=== PATIENT | male | born 1990 | race Caucasian/White ===

== ENCOUNTER 2016-11-22 18:23 | Emergency (ER) | payer BC, OTHER ==
[~2016-11-22] VITALS: Ht 188 cm; Wt 90.7 kg
[~2016-11-22 18:23] MED LIST: HYDR-5688 PO
[2016-11-22 18:26] VITALS: TEMP 36.9; Ht 188 cm; Wt 90.7 kg
[2016-11-22] MEDS ORDERED: PROMETHAZINE HCL INJ 12.5 MG in SODIUM CHLORIDE 0.9% 50ML 50 ML IV ONE (18:47)
[2016-11-22] MEDS ORDERED: PROMETHAZINE HCL INJ 25 MG/ML 1 ML VIAL IV STA (18:47)
[2016-11-22] MEDS ORDERED: SODIUM CHLORIDE 0.9% 1000ML 1,000 ML IV STA ×2 (18:47)
[2016-11-22] MEDS ORDERED: METHYLPREDNISOLONE 125 MG VIAL IV STA (18:47)
[2016-11-22] MEDS ORDERED: HYDROmorphone INJ 2 MG/ML SYR/VIAL IV STA ×2 (18:52→20:39)
[2016-11-22] MEDS ORDERED: MoRPHine SULFATE 10 MG/ML CARP/VIAL IV PRN (19:00)
[2016-11-22] MEDS ORDERED: MRC50 PO (19:03)
[2016-11-22] MEDS ORDERED: ADAL20KI INJ (19:03)
[2016-11-22] MEDS ORDERED: MULT-506 PO (19:03)
--- NOTE | 2016-11-22 19:07 | EMERGENCY ROOM VISIT NOTE ---
History Report prepared by Rafia: Marcel Boykin Under the Supervision of: Dr. Gordon Sim M.D. First contact with patient: 18:45 Chief Complaint: ABDOMINAL PAIN Stated Complaint: ABD PAIN,NAUSEA,BLOODY STOOL,VOMITING, HX CROHNS Nursing Triage Summary: Pt reports diffuse abd pain that began this morning. "I woke up during the night with the pain." Pt has hx of Crohn's. N/V/D. Reports dark blood in stool. History of Present Illness The patient is a 26 year old male who presents to the Emergency Room with complaints of constant abdominal pain that began this morning, several hours prior to arrival. The patient states that he also noticed blood in his stool this morning. His bowel movement this morning was diarrhea-like, but this is normal for him even since his bowel surgeries. He also notes that he has vomited today. The patient has a history of Crohn's disease, and claims that his current symptoms feel similar to Crohn's flairs that he has had in the past. His last flair was in April of 2016. He states that he normally receives Prednisone for his flares. 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 A total of 10 systems reviewed and were otherwise negative. Past Medical & Surgical Medical Problems: (1) Crohns disease Surgical Problems: (1) H/O resection of large bowel Family History Cancer Diabetes mellitus Hypertension Lung disease Social History Smoking Status: Current Every Day Smoker Alcohol Use: none Drug Use: none Marital Status: single Occupation Status: employed, student Current/Historical Medications Scheduled Adalimumab (Humira), 1 DOSE INJ [id number] Mercaptopurine (Mercaptopurine), 1 TAB PO DAILY Multivitamin (Multivitamin), 1 TAB PO DAILY Ondasetron Odt (Zofran Odt), 4 MG SL Q6H Prednisone (Prednisone), 0 PO DAILY Scheduled PRN Oxycodone Ir (Roxicodone Ir), 1-2 TAB PO Q4H PRN for Pain Allergies Coded Allergies: Amoxicillin (Verified Allergy, Unknown, Unknown, 09/15/16) Reported by PT. Pt states allergy only to Amoxicillin. Physical Exam Vital Signs Date Time Temp Pulse Resp B/P Pulse Ox O2 Delivery O2 Flow Rate FiO2 11/22/16 21:12 62 14 106/67 96 Room Air 11/22/16 20:27 59 16 118/70 96 Room Air 11/22/16 18:26 36.9 77 18 142/94 99 Room Air Physical Exam GENERAL: Patient is in no acute distress. HEENT: No acute trauma, normocephalic atraumatic, mucous membranes moist, no nasal congestion, no scleral icterus. NECK: No stridor, no adenopathy, no meningismus, trachea is midline. LUNGS: Clear to auscultation bilaterally, no wheeze, no rhonchi, breath sounds equal. HEART: Without murmurs gallops or rubs, regular rate and rhythm. ABDOMEN: Abdomen is diffusely mildly tender. Soft, bowel sounds positive, no hernias, no peritonitis. EXTREMITIES: No cyanosis or edema, full range of motion of all the joints without pain or difficulty, no signs for acute trauma. NEUROLOGIC: Oriented x 3, no acute motor or sensory deficits, no focal weakness. SKIN: No rash, no jaundice, no diaphoresis. Medical Decision & Procedures ER Provider Diagnostic Interpretation: X ray results and stated below per my interpretation and radiologist interpretation. Other radiology results and stated below per my review and radiologist interpretation: PA CHEST RADIOGRAPH AND UPRIGHT AND SUPINE AP RADIOGRAPHS OF THE ABDOMEN CLINICAL HISTORY: Abdominal pain and vomiting. Crohn's disease. COMPARISON STUDY: Chest radiograph April 21, [address] of the abdomen and pelvis April 17, 2016. FINDINGS: Lung volumes are normal. Lungs are clear. There is no pneumothorax or pleural effusion. Cardiac size is normal. Mediastinal contours are normal. There is no free air. A right-sided bowel anastomosis is noted. There are several colonic air-fluid levels on upright projection. There is no evidence for a bowel obstruction. IMPRESSION: 1. No free air or evidence of bowel obstruction. 2. No acute cardiopulmonary findings. Electronically signed by: Andrei Graham M.D. 11/22/2016 8:29 PM Dictated Date/Time: 11/22/2016 8:28 PM Laboratory Results 11/22/16 19:13 Red Blood Count 5.06, Mean Corpuscular Volume 88.1, Mean Corpuscular Hemoglobin 33.0, Mean Corpuscular Hemoglobin Concent 37.4, Mean Platelet Volume 10.0, Neutrophils (%) (Auto) 69.0, Lymphocytes (%) (Auto) 25.5, Monocytes (%) (Auto) 3.9, Eosinophils (%) (Auto) 1.2, Basophils (%) (Auto) 0.2, Neutrophils # (Auto) 6.44, Lymphocytes # (Auto) 2.38, Monocytes # (Auto) 0.36, Eosinophils # (Auto) 0.11, Basophils # (Auto) 0.02 11/22/16 19:13 Test 11/22/16 19:13 11/22/16 19:34 White Blood Count 9.33 K/uL (4.8-10.8) Red Blood Count 5.06 M/uL (4.7-6.1) Hemoglobin 16.7 g/dL (14.0-18.0) Hematocrit 44.6 % (42-52) Mean Corpuscular Volume 88.1 fL (80-100) Mean Corpuscular Hemoglobin 33.0 pg (25-34) Mean Corpuscular Hemoglobin Concent 37.4 g/dl (32-36) Platelet Count 223 K/uL (130-400) Mean Platelet Volume 10.0 fL (7.4-10.4) Neutrophils (%) (Auto) 69.0 % Lymphocytes (%) (Auto) 25.5 % Monocytes (%) (Auto) 3.9 % Eosinophils (%) (Auto) 1.2 % Basophils (%) (Auto) 0.2 % Neutrophils # (Auto) 6.44 K/uL (1.4-6.5) Lymphocytes # (Auto) 2.38 K/uL (1.2-3.4) Monocytes # (Auto) 0.36 K/uL (0.11-0.59) Eosinophils # (Auto) 0.11 K/uL (0-0.5) Basophils # (Auto) 0.02 K/uL (0-0.2) RDW Standard Deviation 40.4 fL (36.4-46.3) RDW Coefficient of Variation 12.7 % (11.5-14.5) Immature Granulocyte % (Auto) 0.2 % Immature Granulocyte # (Auto) 0.02 K/uL (0.00-0.02) Anion Gap 10.0 mmol/L (3-11) Est Creatinine Clear Calc Drug Dose 120.4 ml/min Estimated GFR () 108.3 Estimated GFR (Non- 93.5 BUN/Creatinine Ratio 5.5 (10-20) Calcium Level 8.7 mg/dl (8.5-10.1) Total Bilirubin 0.6 mg/dl (0.2-1) Aspartate Amino Transf (AST/SGOT) 10 U/L (15-37) Alanine Aminotransferase (ALT/SGPT) 24 U/L (12-78) Alkaline Phosphatase 153 U/L (45-117) Total Protein 7.1 gm/dl (6.4-8.2) Albumin 3.8 gm/dl (3.4-5.0) Globulin 3.3 gm/dl (2.5-4.0) Albumin/Globulin Ratio 1.2 (0.9-2) Lipase 101 U/L (73-393) Lactic Acid Level 0.7 mmol/L (0.4-2.0) Laboratory results reviewed by me. Medications Administered Medications (Trade) Dose Ordered Sig/Ngoc Route Start Time Stop Time Status Last Admin Dose Admin Sodium Chloride 1,000 ml @ 200 mls/hr Q5H STAT IV 11/22/16 18:47 11/22/16 23:46 11/22/16 19:10 200 MLS/HR Sodium Chloride (Nss 1000ml) 1,000 ml @ 999 mls/hr Q1H1M STAT IV 11/22/16 18:47 11/22/16 19:47 DC 11/22/16 19:10 999 MLS/HR Methylprednisolone Sodium Succinate (Solu-Medrol IV) 60 mg NOW STAT IV 11/22/16 18:47 11/22/16 18:52 DC 11/22/16 19:11 60 MG Hydromorphone HCl 1 mg 1 mg NOW STAT IV 11/22/16 18:52 11/22/16 18:53 DC 11/22/16 19:11 1 MG Promethazine HCl/ Sodium Chloride (Phenergan Inj/ Nss 50ml) 50.5 ml @ 202 mls/hr TODAY@1847 ONCE IV 11/22/16 18:47 11/22/16 19:01 DC 11/22/16 19:11 202 MLS/HR Hydromorphone HCl (Dilaudid Inj) 1 mg NOW STAT IV 11/22/16 20:39 11/22/16 20:40 DC 2/12/17 20:43 1 MG Ketorolac Tromethamine (Toradol Inj) 30 mg NOW STAT IV 11/22/16 20:39 11/22/16 20:40 DC 11/22/16 20:43 30 MG Ondansetron HCl (ZOFRAN ODT 4MG Home Pack) 1 homepack UD ONCE PO 11/22/16 21:00 11/22/16 21:01 DC 11/22/16 21:12 1 HOMEPACK Oxycodone HCl (Roxicodone Immediate Rel 5MG Home Pack) 1 homepack UD ONCE PO 11/22/16 21:00 11/22/16 21:01 DC 11/22/16 21:12 1 HOMEPACK ED Course 1847: The patient was evaluated in room A11. A complete history and physical exam was performed. 1846: Ordered Methylprednisolone 60 mg IV, Sodium Chloride 1000 mL @ 999 mL/hr IV, Sodium Chloride 1000 mL @ 200 mL/hr IV. Phenergan 12.5 mg IV. 1851: Ordered Dilaudid 1 mg IV. 2038: Ordered Toradol 30 mg IV, Dilaudid 1 mg IV. 2099: Ordered Oxycodone HCl 1 homepack PO, Zofran 1 homepack PO. 2108: I reevaluated the patient at this time. I discussed results and discharge instructions: He verbalized understanding and agreement. The patient is ready for discharge. Medical Decision Differential Diagnosis include: Exacerbation of Crohn's, constipation, bowel obstruction, electrolyte imbalance, and renal failure. There is no leukocytosis or concerning anemia. No significant electrolyte abnormality, kidney failure, hepatitis or pancreatitis. Abdominal series shows no pneumonia, free air or bowel obstruction. On exam, there was no peritonitis. The patient was not febrile or toxic. Lactic acid level was not elevated making bowel ischemia less likely. The patient has a history of Crohn's, he has had similar Crohn's flares before. He did receive IV saline, IV Dilaudid, IV Phenergan. He received IV Toradol and another dose of IV Dilaudid. He received a dose of IV Solu-Medrol. The patient looks improved, he feels better. No vomiting while here in the ER. I do think the patient can be discharged. He will be discharged with Zofran, oxycodone, a prednisone taper. He has done well with prednisone in the past when he has had a Crohn's flare. Patient was encouraged to return for worsening symptoms or if not improving. A bland and simple diet was suggested. [place] Drug Monitoring Program Search Results: patient reviewed within database, no issues identified Impression Primary Impression: Exacerbation of Crohn's disease Scribe Attestation The scribe's documentation has been prepared under my direction and personally reviewed by me in its entirety. I confirm that the note above accurately reflects all work, treatment, procedures, and medical decision making performed by me. Departure Information Dispostion Home / Self-Care Prescriptions Oxycodone Ir (Roxicodone Ir) 5 Mg Tab 1-2 TAB PO Q4H Y for Pain, #10 TAB Prov: Gordon Sim M.D. 11/22/16 Prednisone (Prednisone) 20 Mg Tab 0 PO DAILY, #14 TAB 3 TABS DAILY FOR 2 DAYS, THEN 2 TABS DAILY FOR 2 DAYS, THEN 1 TAB DAILY FOR 2 DAYS, THEN 1/2 TAB DAILY FOR 2 DAYS. Prov: Gordon Sim M.D. 11/22/16 Ondasetron Odt (ZOFRAN ODT) 4 Mg Tab 4 MG SL Q6H for Nausea, #12 TAB Prov: Gordon Sim M.D. 11/22/16 Referrals No Doctor, Assigned (PCP) Forms HOME CARE DOCUMENTATION FORM, IMPORTANT VISIT INFORMATION Patient Instructions My [facility] Additional Instructions oxy ir 1-2 tab every 4 hours for pain zofran 1-2 tab every 6 hours for nausea bland diet--crackers, soup, toast, gatorade small meals at a time use prednisone as directed rest return for worsening symptoms or if not improving follow with your GI doctor--call for an appt Problem Qualifiers Primary Impression: Exacerbation of Crohn's disease Digestive disease complication type: unspecified complication Qualified Codes : K50.919 - Crohn's disease, unspecified, with unspecified complications
[2016-11-22 19:24] LABS: BASO % 0.2 %; BASO ABS # 0.02 K/uL (0-0.2); COMPLETE YES; EOS % 1.2 %; HEMATOCRIT 44.6 % (42-52); IG% 0.2 %; LYMPH % 25.5 %; LYMPH ABS # 2.38 K/uL (1.2-3.4); MEAN CELL VOLUME 88.1 fL (80-100); MEAN CORPUSCULAR HGB CONC 37.4 g/dl (32-36); MONO % 3.9 %; PLATELET COUNT 223 K/uL (130-400); RED BLOOD COUNT 5.06 M/uL (4.7-6.1); WHITE BLOOD COUNT 9.33 K/uL (4.8-10.8)
[2016-11-22 19:40] LABS: BUN/CREATININE RATIO 5.5 (10-20); CALCIUM 8.7 mg/dl (8.5-10.1); CREATININE 1.1 mg/dl (0.60-1.40); POTASSIUM 4.2 mmol/L (3.5-5.1)
[2016-11-22 19:43] LABS: ALB/GLOB RATIO 1.2 (0.9-2)
--- NOTE | 2016-11-22 20:31 | DIAGNOSTIC IMAGING REPORT ---
PA CHEST RADIOGRAPH AND UPRIGHT AND SUPINE AP RADIOGRAPHS OF THE ABDOMEN CLINICAL HISTORY: Abdominal pain and vomiting. Crohn's disease. COMPARISON STUDY: Chest radiograph April 21, [address] of the abdomen and pelvis April 17, 2016. FINDINGS: Lung volumes are normal. Lungs are clear. There is no pneumothorax or pleural effusion. Cardiac size is normal. Mediastinal contours are normal. There is no free air. A right-sided bowel anastomosis is noted. There are several colonic air-fluid levels on upright projection. There is no evidence for a bowel obstruction. IMPRESSION: 1. No free air or evidence of bowel obstruction. 2. No acute cardiopulmonary findings. Electronically signed by: Andrei Graham M.D. 11/22/2016 8:29 PM Dictated Date/Time: 11/22/2016 8:28 PM
[2016-11-22] MEDS ORDERED: KETOROLAC TROMETHAMINE 30 MG/ML VIAL IV STA (20:39)
[2016-11-22] MEDS ORDERED: OXYCODONE IR HOME PACK PO ONE (21:00)
[2016-11-22] MEDS ORDERED: ONDANSETRON HOME PACK 4MG OD TAB PO ONE (21:00)
[2016-11-22] MEDS ORDERED: OXYC1TAB3 PO (21:01)
[2016-11-22] MEDS ORDERED: ONDA4TAB10 SL (21:01)
[2016-11-22] MEDS ORDERED: PRED20TA PO (21:01)
[2016-11-22 21:12] VITALS: BP 106/67; PULSE 62; O2SAT 96
== END 2016-11-22 21:22 | disposition home or self-care (01) ==
LOC: C.EDB 18:25 → C.EDA 21:22
DX: K50.919 Crohn's disease, unspecified, with unspecified complications (principal); F17.200 Nicotine dependence, unspecified, uncomplicated; Z90.49 Acquired absence of other specified parts of digestive tract; Z83.3 Family history of diabetes mellitus; Z82.49 Family history of ischemic heart disease and other diseases of the circulatory system; Z79.52 Long term (current) use of systemic steroids

== ENCOUNTER 2016-11-25 10:48 | Emergency (ER) | payer BC, OTHER ==
[~2016-11-25] VITALS: Ht 188 cm; Wt 90.9 kg
[~2016-11-25 10:48] MED LIST changes: +ADAL20KI INJ; -HYDR-5688 PO; +MRC50 PO; +MULT-506 PO; +ONDA4TAB10 SL; +OXYC1TAB3 PO; +PRED20TA PO
[2016-11-25 10:54] VITALS: TEMP 36.8; Ht 188 cm; Wt 90.9 kg
[2016-11-25] MEDS ORDERED: HYDROmorphone INJ 1 MG/ML SYR IV STA (11:42)
[2016-11-25] MEDS ORDERED: ONDANSETRON INJ 2 MG/ML 2 ML VIAL IV STA (11:42)
[2016-11-25] MEDS ORDERED: SODIUM CHLORIDE 0.9% 1000ML 1,000 ML IV STA ×2 (11:42)
[2016-11-25 11:51] LABS: BASO % 0.2 %; BASO ABS # 0.01 K/uL (0-0.2); COMPLETE YES; EOS % 1.9 %; HEMATOCRIT 43.1 % (42-52); IG% 0.2 %; LYMPH % 29.3 %; LYMPH ABS # 1.73 K/uL (1.2-3.4); MEAN CELL VOLUME 88.3 fL (80-100); MEAN CORPUSCULAR HGB CONC 36.2 g/dl (32-36); MEAN PLATELET VOLUME 10.4 fL (7.4-10.4); MONO % 5.4 %; PLATELET COUNT 218 K/uL (130-400); RED BLOOD COUNT 4.88 M/uL (4.7-6.1)
[2016-11-25] MEDS ORDERED: OPTIRAY 320 IV PRN (12:00)
[2016-11-25 12:02] LABS: ALT/SGPT 22 U/L (12-78); AST/SGOT 10 U/L (15-37); BLOOD UREA NITROGEN 8 mg/dl (7-18); CALCIUM 8.3 mg/dl (8.5-10.1); CARBON DIOXIDE 25 mmol/L (21-32); CHLORIDE 109 mmol/L (98-107); CREATININE 0.86 mg/dl (0.60-1.40); GLUCOSE 89 mg/dl (70-99); SODIUM 141 mmol/L (136-145)
[2016-11-25 12:05] LABS: ALKALINE PHOSPHATASE 121 U/L (45-117); C-REACTIVE PROTEIN 0.29 mg/dl (0-0.29)
--- NOTE | 2016-11-25 15:08 | DIAGNOSTIC IMAGING REPORT ---
CT SCAN OF THE ABDOMEN AND PELVIS WITH IV CONTRAST CLINICAL HISTORY: Crohn's disease. COMPARISON STUDY: Abdominal CT dated 04/17/2016. TECHNIQUE: Following the IV administration of 93 cc of Optiray 320, CT scan of the abdomen and pelvis is performed from the lung bases to the proximal femora. Images are reviewed in the axial, sagittal, and coronal planes. IV contrast was administered without complication. Automated dose control exposure was utilized. CT DOSE: 407.16 mGy.cm FINDINGS: Lung bases: The heart is normal in size and without pericardial effusion. There are trace pleural effusions with dependent atelectasis. Liver: The contrast-enhanced liver is normal in size, contour, and attenuation. There is no intrahepatic biliary ductal dilatation. The hepatic veins and portal veins are patent. Gallbladder: Unremarkable. Spleen: Mildly enlarged measuring 13.3 cm in length. Pancreas: Unremarkable. Adrenal glands: Unremarkable. Kidneys: The contrast enhanced kidneys are normal in size and without hydronephrosis. The kidneys enhance symmetrically. Small cortical hypodensities in both kidneys are unchanged and measure up to 1.5 cm. These likely represent cysts but cannot definitively characterized due to surrounding IV contrast. A 3 mm nonobstructing calculus is noted in the left kidney. Abdominal vasculature: The abdominal aorta is normal in course and caliber. Bowel: There are postoperative changes from distal ileal resection with ileocolic anastomosis. No bowel obstruction is seen, as enteric contrast reaches the distal colon. The appendix is surgically absent. There is a short segment of wall thickening identified involving the distal ileum just proximal to anastomosis. This segment measures at least 6 cm in length. This is similar in appearance to the 04/17/2016 examination. There is no evidence of stricture or fistula formation. Mild productive change is noted in the surrounding fat. No additional thick walled bowel loops are identified. Peritoneum: There is no intraperitoneal free air or abdominal ascites. A midline surgical scar is noted. Lymphadenopathy: Prominent right lower quadrant mesenteric lymph nodes measure up to 10 mm short axis. Pelvic viscera: The bladder, prostate, and seminal vesicles are normal as visualized. Skeletal structures: No lytic or blastic lesions are seen. IMPRESSION: 1. There are postoperative changes from distal ileal resection with ileocolic anastomosis. No bowel obstruction is seen. 2. There is an approximately 6 cm segment of thick walled distal ileum located just proximal to anastomotic site. The appearance is consistent with active Crohn's disease, and this is overall similar to the 04/17/2016 examination. There is no evidence of stricture or fistula formation. No organized fluid collection is seen to suggest abscess. 3. No additional abnormal small bowel loops are identified. 4. Prominent mesenteric lymph nodes are likely on a reactive basis. 5. Additional findings as above. Electronically signed by: Gordon Landry M.D. 11/25/2016 3:06 PM Dictated Date/Time: 11/25/2016 2:57 PM
[2016-11-25] MEDS ORDERED: METHYLPREDNISOLONE 125 MG VIAL IV STA (15:47)
[2016-11-25] MEDS ORDERED: HYDROmorphone INJ 0.5 MG/0.5 ML SYR IV STA (15:47)
--- NOTE | 2016-11-25 15:49 | EMERGENCY ROOM VISIT NOTE ---
History First contact with patient: 11:20 Chief Complaint: ABDOMINAL PAIN Stated Complaint: CROHNS FLARE Nursing Triage Summary: Pt c/o Crohn's flare Abd pain, nausea, blood in stool. Wednesday night was here, got worse. History of Present Illness Patient is a 26-year-old white male with past medical history significant for Crohn's and status post bowel resection 2 who presents to the emergency department for evaluation of ongoing abdominal pain, nausea and bloody diarrhea over the last 5 days. Patient was seen in the emergency department 3 days ago for similar symptoms. He was thoroughly evaluated with x-ray and laboratory studies. He received IV pain medication, antiemetics and Solu-Medrol. He was feeling better at the completion of his workup and therefore was discharged to home. He was discharged home on prednisone. The patient states that despite taking the prednisone, Zofran and oxycodone as prescribed his symptoms are getting worse. He notes worsening abdominal pain and persistent nausea. His last episode of vomiting was last evening at work. He reports typical loose, watery bowel movements tinged with blood. There is no increased frequency in his bowel movements. He denies hematemesis. He has not had a fever. He presently rates his pain an 8/10. He previously belonged to Dr. Gatica, but has not become established with a new PCP since he retired. 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 Fitch. He reports that he has been compliant with his Humira and mercaptopurine. Review of Systems Review of systems as per HPI. All other systems reviewed were negative. 10 systems reviewed. Past Medical/Surgical History Medical Problems: (1) Abdominal pain (2) Abdominal pain (3) Abdominal pain (4) Crohns disease (5) Crohns disease (6) Crohns disease (7) Exacerbation of Crohn's disease (8) H/O resection of large bowel (9) Intractable abdominal pain (10) Right corneal abrasion (11) Right shoulder pain (12) Shoulder pain, acute Electronic medical records are reviewed and summarized as above/below. See Problem List. Family History Cancer Diabetes mellitus Hypertension Lung disease Social History Smoking Status: Current Every Day Smoker Alcohol Use: none Drug Use: none Marital Status: single Occupation Status: employed Current/Historical Medications Scheduled Ondasetron Odt (Zofran Odt), 4 MG SL Q6H Prednisone (Prednisone), 0 PO DAILY Scheduled PRN Oxycodone Ir (Roxicodone Ir), 1-2 TAB PO Q4H PRN for Pain Allergies Coded Allergies: Amoxicillin (Verified Allergy, Unknown, Unknown, 11/25/16) Reported by PT. Pt states allergy only to Amoxicillin. Physical Exam Vital Signs Date Time Temp Pulse Resp B/P Pulse Ox O2 Delivery O2 Flow Rate FiO2 11/25/16 15:57 50 18 118/64 97 Room Air 11/25/16 14:59 76 18 106/71 96 Room Air 11/25/16 12:53 50 18 107/65 97 Room Air 11/25/16 10:54 36.8 92 16 127/83 95 Room Air Physical Exam CONSTITUTIONAL: Patient is a well-appearing 26-year-old white male who is awake and alert and in no acute distress. EYES: Pupils equal, round, reactive to light and accommodation. EOMs intact without nystagmus. Sclera are anicteric. ENT: Tympanic membranes intact, with normal landmarks. External canals are clear. Oral and nasopharynx are clear. Mucous membranes are moist, no lesions , tongue and gums appear normal. NECK: No bruits auscultated. Supple without lymphadenopathy. No thyromegaly. No meningeal signs. Full active range of motion without discomfort. CARDIOVASCULAR: Regular rate and rhythm, with normal S1 and S2, no murmur or gallop or rub is heard. No carotid bruits auscultated. No JVD. Peripheral pulses easily palpable. RESPIRATORY: Breath sounds equal and clear to auscultation without wheezes, rales, or rhonchi heard. Full and equal chest expansion without accessory muscle use or retractions. ABDOMEN: Bowel sounds are present. Multiple well-healed surgical scars are noted. Abdomen is soft, nondistended, diffusely tender to palpation particularly in the right and the left lower quadrants. There is no guarding, rebound or rigidity. INTEGUMENTARY: No lesions or rash, normal skin turgor. LYMPH: No lymphadenopathy. Medical Decision & Procedures ER Provider Diagnostic Interpretation: CT SCAN OF THE ABDOMEN AND PELVIS WITH IV CONTRAST CLINICAL HISTORY: Crohn's disease. COMPARISON STUDY: Abdominal CT dated 04/17/2016. TECHNIQUE: Following the IV administration of 93 cc of Optiray 320, CT scan of the abdomen and pelvis is performed from the lung bases to the proximal femora. Images are reviewed in the axial, sagittal, and coronal planes. IV contrast was administered without complication. Automated dose control exposure was utilized. CT DOSE: 407.16 mGy.cm FINDINGS: Lung bases: The heart is normal in size and without pericardial effusion. There are trace pleural effusions with dependent atelectasis. Liver: The contrast-enhanced liver is normal in size, contour, and attenuation. There is no intrahepatic biliary ductal dilatation. The hepatic veins and portal veins are patent. Gallbladder: Unremarkable. Spleen: Mildly enlarged measuring 13.3 cm in length. Pancreas: Unremarkable. Adrenal glands: Unremarkable. Kidneys: The contrast enhanced kidneys are normal in size and without hydronephrosis. The kidneys enhance symmetrically. Small cortical hypodensities in both kidneys are unchanged and measure up to 1.5 cm. These likely represent cysts but cannot definitively characterized due to surrounding IV contrast. A 3 mm nonobstructing calculus is noted in the left kidney. Abdominal vasculature: The abdominal aorta is normal in course and caliber. Bowel: There are postoperative changes from distal ileal resection with ileocolic anastomosis. No bowel obstruction is seen, as enteric contrast reaches the distal colon. The appendix is surgically absent. There is a short segment of wall thickening identified involving the distal ileum just proximal to anastomosis. This segment measures at least 6 cm in length. This is similar in appearance to the 04/17/2016 examination. There is no evidence of stricture or fistula formation. Mild productive change is noted in the surrounding fat. No additional thick walled bowel loops are identified. Peritoneum: There is no intraperitoneal free air or abdominal ascites. A midline surgical scar is noted. Lymphadenopathy: Prominent right lower quadrant mesenteric lymph nodes measure up to 10 mm short axis. Pelvic viscera: The bladder, prostate, and seminal vesicles are normal as visualized. Skeletal structures: No lytic or blastic lesions are seen. IMPRESSION: 1. There are postoperative changes from distal ileal resection with ileocolic anastomosis. No bowel obstruction is seen. 2. There is an approximately 6 cm segment of thick walled distal ileum located just proximal to anastomotic site. The appearance is consistent with active Crohn's disease, and this is overall similar to the 04/17/2016 examination. There is no evidence of stricture or fistula formation. No organized fluid collection is seen to suggest abscess. 3. No additional abnormal small bowel loops are identified. 4. Prominent mesenteric lymph nodes are likely on a reactive basis. 5. Additional findings as above. Laboratory Results 2/15/17 11:10 Red Blood Count 4.88, Mean Corpuscular Volume 88.3, Mean Corpuscular Hemoglobin 32.0, Mean Corpuscular Hemoglobin Concent 36.2, Mean Platelet Volume 10.4, Neutrophils (%) (Auto) 63.0, Lymphocytes (%) (Auto) 29.3, Monocytes (%) (Auto) 5.4, Eosinophils (%) (Auto) 1.9, Basophils (%) (Auto) 0.2, Neutrophils # (Auto) 3.72, Lymphocytes # (Auto) 1.73, Monocytes # (Auto) 0.32, Eosinophils # (Auto) 0.11, Basophils # (Auto) 0.01 11/25/16 11:10 Test 11/25/16 11:10 White Blood Count 5.90 K/uL (4.8-10.8) Red Blood Count 4.88 M/uL (4.7-6.1) Hemoglobin 15.6 g/dL (14.0-18.0) Hematocrit 43.1 % (42-52) Mean Corpuscular Volume 88.3 fL (80-100) Mean Corpuscular Hemoglobin 32.0 pg (25-34) Mean Corpuscular Hemoglobin Concent 36.2 g/dl (32-36) Platelet Count 218 K/uL (130-400) Mean Platelet Volume 10.4 fL (7.4-10.4) Neutrophils (%) (Auto) 63.0 % Lymphocytes (%) (Auto) 29.3 % Monocytes (%) (Auto) 5.4 % Eosinophils (%) (Auto) 1.9 % Basophils (%) (Auto) 0.2 % Neutrophils # (Auto) 3.72 K/uL (1.4-6.5) Lymphocytes # (Auto) 1.73 K/uL (1.2-3.4) Monocytes # (Auto) 0.32 K/uL (0.11-0.59) Eosinophils # (Auto) 0.11 K/uL (0-0.5) Basophils # (Auto) 0.01 K/uL (0-0.2) RDW Standard Deviation 42.0 fL (36.4-46.3) RDW Coefficient of Variation 13.0 % (11.5-14.5) Immature Granulocyte % (Auto) 0.2 % Immature Granulocyte # (Auto) 0.01 K/uL (0.00-0.02) Erythrocyte Sedimentation Rate 2 mm/hr (0-14) Anion Gap 7.0 mmol/L (3-11) Est Creatinine Clear Calc Drug Dose 154.1 ml/min Estimated GFR () 140.7 Estimated GFR (Non- 121.4 BUN/Creatinine Ratio 9.0 (10-20) Calcium Level 8.3 mg/dl (8.5-10.1) Total Bilirubin 0.5 mg/dl (0.2-1) Direct Bilirubin < 0.1 mg/dl (0-0.2) Aspartate Amino Transf (AST/SGOT) 10 U/L (15-37) Alanine Aminotransferase (ALT/SGPT) 22 U/L (12-78) Alkaline Phosphatase 121 U/L (45-117) C-Reactive Protein 0.29 mg/dl (0-0.29) Total Protein 6.4 gm/dl (6.4-8.2) Albumin 3.5 gm/dl (3.4-5.0) Lipase 92 U/L (73-393) Medications Administered Medications (Trade) Dose Ordered Sig/Ngoc Route Start Time Stop Time Status Last Admin Dose Admin Sodium Chloride 1,000 ml @ 999 mls/hr Q1H1M STAT IV 11/25/16 11:42 11/25/16 12:42 DC 11/25/16 11:42 999 MLS/HR Sodium Chloride (Nss 1000ml) 1,000 ml @ 250 mls/hr Q4H STAT IV 11/25/16 11:42 11/25/16 15:41 DC 11/25/16 11:42 250 MLS/HR Hydromorphone HCl (Dilaudid Inj) 1 mg NOW STAT IV 11/25/16 11:42 11/25/16 11:45 DC 11/25/16 11:42 1 MG Ondansetron HCl (Zofran Inj) 4 mg NOW STAT IV 11/25/16 11:42 11/25/16 11:45 DC 11/25/16 11:42 4 MG Hydromorphone HCl (Dilaudid Inj) 0.5 mg NOW STAT IV 11/25/16 15:47 11/25/16 15:48 DC 11/25/16 15:47 0.5 MG Methylprednisolone Sodium Succinate (Solu-Medrol IV) 125 mg NOW STAT IV 11/25/16 15:47 11/25/16 15:48 DC 11/25/16 15:47 125 MG ED Course The patient was seen and assessed as above. His old records were reviewed, including his most recent ED visit and hospitalization prior to that. He presents to the emergency department for evaluation of a persistent abdominal pain. His abdominal exam is benign, however he reports worsening symptoms since prior ED workup from 3 days ago. IV access was obtained. He was hydrated with normal saline solution and medicated with Dilaudid 1 mg and Zofran 4 mg IV. Laboratory studies were performed including CBC with differential, ESR, CRP, BMP, LFTs and lipase. Stool studies were ordered, but the patient did not provide a stool sample for analysis while in the emergency department and thus were canceled. Given his persistent symptoms, CT scan of the abdomen and pelvis with IV and oral contrast was ordered. Patient's laboratory studies revealed a normal white count at 5900, no left shift or bandemia. H&H is normal. Sedimentation rate and CRP are not elevated. Electrolytes are without correctable abnormality. Renal function is normal. Liver functions are not elevated and lipase is normal. Urine dip was clear. The patient rested in the emergency department and tolerated oral contrast without difficulty. CT scan noted postoperative changes from the distal ileal resection with ileocolic anastomosis. There was no evidence for bowel obstruction. There was an approximately 6 cm segment of thick walled distal ileum located just proximal to the anastomosis, consistent with active Crohn's disease and similar to prior CAT scan from 04/2016. There is no evidence for structure or fistula. No fluid collection to indicate abscess. Reactive lymph nodes were noted. On reassessment, the patient reported that his pain was beginning to return. He was given an additional 0.5 mg of Dilaudid IV and an additional dose of Solu- Medrol IV. All laboratory and diagnostic imaging studies were reviewed with him. Treatment options were discussed. He does have evidence for active Crohn' s by CT, however has a benign abdominal exam, no leukocytosis or elevation of his inflammatory markers. He was offered admission to the hospital for pain and symptom management versus continued outpatient therapy with the prednisone that was previously prescribed. He has elected to go home. I feel that this is reasonable. Certainly if his symptoms do not improve in the next one to 2 days he should return to the emergency department at which point it would seem that he has failed outpatient management and would benefit from inpatient care. This was discussed with him and he was agreeable. He will finish the prednisone that he was initially prescribed, and has oxycodone and Zofran at home that he can use. The patient rated his discomfort a 0/10 at discharge. He was encouraged to follow closely with his PCP and treasury management sales consultant. Differential diagnoses include exacerbation of Crohn's disease, infectious colitis, gastroenteritis, pancreatitis, cholelithiasis, cholecystitis, bowel obstruction, perforation, abscess, pyelonephritis, urinary tract infection, renal colic, diverticulitis, shingles, and others. Medical Decision See ED course. Impression Primary Impression: Exacerbation of Crohn's disease Departure Information Referrals No Doctor, Assigned (PCP) Patient Instructions My [facility] Additional Instructions DO NOT drive, drink alcohol, operate machinery, or perform dangerous activities today. You were given medications in the ER that can affect your ability to safely function or operate a vehicle. Continue your oxycodone and Zofran as previously prescribed if needed for pain/ nausea. Acetaminophen(Tylenol) may be used for fever or pain. Use 1000mg every eight hours as needed. Avoid using more than 3000mg in a 24 hour period. This is available over the counter. Finish prednisone. Read all the package inserts or medication information paperwork provided. If you have any questions or concerns call your primary provider, pharmacist or the ER for assistance. Rest and drink plenty of fluids as tolerated. Slow sips of water or sports drinks are recommended instead of large amounts all at once. Continue current medications. Once your stomach is settled start with a clear liquid diet (jello, soup broth, etc.) and then advance as tolerated. You should avoid full, heavy meals for about 24 hrs from the time your symptoms resolved. Return to the ER immediately for worsening or persistent abdominal pain, vomiting, fevers, chest pains, difficulty breathing, black or bloody stools, worsening of your condition, or as needed. Follow up with your primary physician and treasury management sales consultant within the next 3- 5 days for a recheck of your current condition. Problem Qualifiers Primary Impression: Exacerbation of Crohn's disease Digestive disease complication type: without complication Qualified Codes: K50.90 - Crohn's disease, unspecified, without complications
[2016-11-25 15:57] VITALS: BP 118/64; PULSE 50; O2SAT 97
== END 2016-11-25 16:04 | disposition home or self-care (01) ==
LOC: C.EDB 10:49 → C.EDC 16:04
DX: K50.90 Crohn's disease, unspecified, without complications (principal); F17.210 Nicotine dependence, cigarettes, uncomplicated; Z79.52 Long term (current) use of systemic steroids

== ENCOUNTER 2017-02-25 16:40 | Emergency (ER) | payer BC, OTHER ==
[~2017-02-25] VITALS: Ht 188 cm; Wt 86.4 kg
[~2017-02-25 16:40] MED LIST changes: -ADAL20KI INJ; -MRC50 PO; -MULT-506 PO
[2017-02-25 16:43] VITALS: TEMP 36.7; Ht 188 cm; Wt 86.4 kg
[2017-02-25] MEDS ORDERED: MoRPHine SULFATE 10 MG/ML CARP/VIAL IV STA (16:59)
[2017-02-25] MEDS ORDERED: ONDANSETRON INJ 2 MG/ML 2 ML VIAL IV STA (16:59)
[2017-02-25] MEDS ORDERED: SODIUM CHLORIDE 0.9% 1000ML 1,000 ML IV STA (16:59)
[2017-02-25 17:41] LABS: BASO % 0.3 %; BASO ABS # 0.03 K/uL (0-0.2); COMPLETE YES; EOS % 2.1 %; HEMATOCRIT 43.4 % (42-52); IG% 0.1 %; LYMPH % 25.7 %; LYMPH ABS # 2.34 K/uL (1.2-3.4); MEAN CORPUSCULAR HEMOGLOBIN 31.5 pg (25-34); MEAN PLATELET VOLUME 10.5 fL (7.4-10.4); MONO % 5.5 %; NEUT % 66.3 %; PLATELET COUNT 252 K/uL (130-400); RED BLOOD COUNT 4.82 M/uL (4.7-6.1); WHITE BLOOD COUNT 9.09 K/uL (4.8-10.8)
--- NOTE | 2017-02-25 18:12 | DIAGNOSTIC IMAGING REPORT ---
ABDOMEN 2VIEW W/PA CHEST RTN CLINICAL HISTORY: abd pain pain COMPARISON STUDY: 11/22/2016 FINDINGS: Nonobstructive bowel pattern. Postoperative changes right flank. No bowel distention. Chronic pleural-parenchymal change right base laterally. Lungs otherwise are clear. IMPRESSION: No acute process. Electronically signed by: Obinna Talbert M.D. 02/25/2017 6:11 PM Dictated Date/Time: 02/25/2017 6:09 PM
[2017-02-25 18:13] LABS: ALT/SGPT 19 U/L (12-78); AST/SGOT 9 U/L (15-37); BLOOD UREA NITROGEN 7 mg/dl (7-18); BUN/CREATININE RATIO 6.8 (10-20); CALCIUM 8.2 mg/dl (8.5-10.1); CARBON DIOXIDE 28 mmol/L (21-32); CHLORIDE 112 mmol/L (98-107); GLUCOSE 83 mg/dl (70-99); POTASSIUM 3.5 mmol/L (3.5-5.1); SODIUM 144 mmol/L (136-145)
[2017-02-25 18:16] LABS: ALKALINE PHOSPHATASE 146 U/L (45-117); C-REACTIVE PROTEIN < 0.29 mg/dl (0-0.29)
[2017-02-25] MEDS ORDERED: HYDROmorphone INJ 1 MG/ML SYR IV STA (18:24)
[2017-02-25] MEDS ORDERED: ZFRODT/8 SQ (18:31)
[2017-02-25] MEDS ORDERED: ZNTT/150 PO (18:31)
[2017-02-25] MEDS ORDERED: METHYLPREDNISOLONE 125 MG VIAL IV STA (19:03)
[2017-02-25 19:15] LABS: URINE APPEARANCE CLEAR (CLEAR); URINE BILIRUBIN NEG (NEG); URINE COLOR DK YELLOW; URINE NITRITE NEG (NEG); URINE PH 5.5 (4.5-7.5); URINE SPECIFIC GRAVITY 1.032 (1.000-1.030); UROBILINOGEN NEG (NEG); ZZUR CULT IF INDIC CLEAN CATCH NO
[2017-02-25 19:23] LABS: MANUAL MICROSCOPIC REQUIRED? NO; REVIEW REQ? YES
[2017-02-25] MEDS ORDERED: PRED50TA PO (19:50)
[2017-02-25] MEDS ORDERED: METR-163 PO (19:50)
[2017-02-25] MEDS ORDERED: METRONIDAZOLE 250 MG TAB PO STA (19:51)
[2017-02-25 20:01] VITALS: BP 119/89; PULSE 65; O2SAT 96
--- NOTE | 2017-02-25 20:31 | EMERGENCY ROOM VISIT NOTE ---
History Report prepared by Rafia: Adelia Simmons Under the Supervision of: Michael BlumO. First contact with patient: 16:47 Chief Complaint: NAUSEA Stated Complaint: NAUSEA,VOMITING,DIARRHEA W/ CHRONS DISEASE History of Present Illness The patient is a 26 year old male who presents to the Emergency Room with complaints of persistent diarrhea that began one week ago. He currently rates her discomfort as a 7/10 in severity. The patient states that he has a history of Crohn's Disease and follows with Dr. Fitch, Gastroenterology. He reports that he hasn't taken his medication in nearly a year because he cannot afford it. The patient states that he began experiencing diarrhea Wednesday and states that his symptoms worsened since then. He additionally associates nausea, vomiting, and central abdominal pain with his symptoms today. The patient additionally notes a history of hematochezia. He states that he has had 3 feet of his colon resected and a history of an appendectomy. The patient states that his symptoms today feel similar to his previous Crohn's flair ups. He denies any history of diverticulitis. Pt denies headache, change in vision, fevers, chest pain, shortness of breath, or pain with urination. No recent antibiotics. Source of History: patient Onset: one week ago Position: other (global) Symptom Intensity: 7/10 Quality: other (diarrhea) Timing: other (persistent) Associated Symptoms: + abdominal pain (central), + hematochezia, + nausea, + vomiting Review of Systems See HPI for pertinent positives & negatives. A total of 10 systems reviewed and were otherwise negative. Past Medical & Surgical Medical Problems: (1) Abdominal pain (2) Abdominal pain (3) Abdominal pain (4) Crohns disease (5) Crohns disease (6) Crohns disease (7) Exacerbation of Crohn's disease (8) H/O resection of large bowel (9) Intractable abdominal pain (10) Right corneal abrasion (11) Right shoulder pain (12) Shoulder pain, acute Family History Cancer Diabetes mellitus FH: heart disease Hypertension Lung disease Social History Smoking Status: Current Every Day Smoker Alcohol Use: occasionally Drug Use: none Marital Status: in relationship Housing Status: lives with significant other Occupation Status: employed Current/Historical Medications Scheduled Metronidazole (Flagyl), 500 MG PO TID Ondansetron (Ondansetron Odt), 8 MG SQ Q8 Prednisone (Prednisone), 50 MG PO DAILY Scheduled PRN Ranitidine (Zantac), 150 MG PO DAILY PRN for Dyspepsia Allergies Coded Allergies: Amoxicillin (Verified Allergy, Unknown, Unknown, 11/25/16) Reported by PT. Pt states allergy only to Amoxicillin. Physical Exam Vital Signs Date Time Temp Pulse Resp B/P Pulse Ox O2 Delivery O2 Flow Rate FiO2 02/25/17 20:01 65 16 119/89 96 02/25/17 18:23 62 16 125/73 96 Room Air 02/25/17 16:43 36.7 80 20 123/71 95 Room Air Physical Exam GENERAL: Sitting up in bed, disheveled, alert, well appearing, well nourished, no distress, non-toxic EYE EXAM: normal conjunctiva. OROPHARYNX: no exudate, no erythema, lips, buccal mucosa, and tongue normal and mucous membranes are moist NECK: supple, no nuchal rigidity, no adenopathy, non-tender LUNGS: Clear to auscultation. Normal chest wall mechanics HEART: no murmurs, S1 normal and S2 normal ABDOMEN: Minimally tender in left lower quadrant. abdomen soft, normo-active bowel sounds, no masses, no rebound or guarding. BACK: Back is symmetrical on inspection and there is no deformity, no midline tenderness, no CVA tenderness. SKIN: no rashes and no bruising UPPER EXTREMITIES: upper extremities are grossly normal. LOWER EXTREMITIES: No pitting edema. NEURO EXAM: Normal sensorium, cranial nerves II-XII grossly intact, normal speech, no gross weakness of arms, no gross weakness of legs. Medical Decision & Procedures ER Provider Diagnostic Interpretation: Radiology results as stated below per my review and the radiologist's interpretation: ABDOMEN 2VIEW W/PA CHEST RTN CLINICAL HISTORY: abd pain pain COMPARISON STUDY: 11/22/2016 FINDINGS: Nonobstructive bowel pattern. Postoperative changes right flank. No bowel distention. Chronic pleural-parenchymal change right base laterally. Lungs otherwise are clear. IMPRESSION: No acute process. Electronically signed by: Obinna Talbert M.D. 02/25/2017 6:11 PM Dictated Date/Time: 02/25/2017 6:09 PM Laboratory Results 02/25/17 17:30 Red Blood Count 4.82, Mean Corpuscular Volume 90.0, Mean Corpuscular Hemoglobin 31.5, Mean Corpuscular Hemoglobin Concent 35.0, Mean Platelet Volume 10.5, Neutrophils (%) (Auto) 66.3, Lymphocytes (%) (Auto) 25.7, Monocytes (%) (Auto) 5.5, Eosinophils (%) (Auto) 2.1, Basophils (%) (Auto) 0.3, Neutrophils # (Auto) 6.02, Lymphocytes # (Auto) 2.34, Monocytes # (Auto) 0.50, Eosinophils # (Auto) 0.19, Basophils # (Auto) 0.03 02/25/17 17:30 Test 02/25/17 17:30 02/25/17 18:34 White Blood Count 9.09 K/uL (4.8-10.8) Red Blood Count 4.82 M/uL (4.7-6.1) Hemoglobin 15.2 g/dL (14.0-18.0) Hematocrit 43.4 % (42-52) Mean Corpuscular Volume 90.0 fL (80-100) Mean Corpuscular Hemoglobin 31.5 pg (25-34) Mean Corpuscular Hemoglobin Concent 35.0 g/dl (32-36) Platelet Count 252 K/uL (130-400) Mean Platelet Volume 10.5 fL (7.4-10.4) Neutrophils (%) (Auto) 66.3 % Lymphocytes (%) (Auto) 25.7 % Monocytes (%) (Auto) 5.5 % Eosinophils (%) (Auto) 2.1 % Basophils (%) (Auto) 0.3 % Neutrophils # (Auto) 6.02 K/uL (1.4-6.5) Lymphocytes # (Auto) 2.34 K/uL (1.2-3.4) Monocytes # (Auto) 0.50 K/uL (0.11-0.59) Eosinophils # (Auto) 0.19 K/uL (0-0.5) Basophils # (Auto) 0.03 K/uL (0-0.2) RDW Standard Deviation 41.8 fL (36.4-46.3) RDW Coefficient of Variation 12.8 % (11.5-14.5) Immature Granulocyte % (Auto) 0.1 % Immature Granulocyte # (Auto) 0.01 K/uL (0.00-0.02) Erythrocyte Sedimentation Rate 2 mm/hr (0-14) Anion Gap 4.0 mmol/L (3-11) Est Creatinine Clear Calc Drug Dose 120.4 ml/min Estimated GFR () 108.3 Estimated GFR (Non- 93.5 BUN/Creatinine Ratio 6.8 (10-20) Calcium Level 8.2 mg/dl (8.5-10.1) Total Bilirubin 0.4 mg/dl (0.2-1) Direct Bilirubin 0.1 mg/dl (0-0.2) Aspartate Amino Transf (AST/SGOT) 9 U/L (15-37) Alanine Aminotransferase (ALT/SGPT) 19 U/L (12-78) Alkaline Phosphatase 146 U/L (45-117) C-Reactive Protein < 0.29 mg/dl (0-0.29) Total Protein 6.4 gm/dl (6.4-8.2) Albumin 3.7 gm/dl (3.4-5.0) Lipase 78 U/L (73-393) Urine Color DK YELLOW Urine Appearance CLEAR (CLEAR) Urine pH 5.5 (4.5-7.5) Urine Specific [place] 1.032 (1.000-1.030) Urine Protein NEG (NEG) Urine Glucose (UA) NEG (NEG) Urine Ketones TRACE (NEG) Urine Occult Blood NEG (NEG) Urine Nitrite NEG (NEG) Urine Bilirubin NEG (NEG) Urine Urobilinogen NEG (NEG) Urine Leukocyte Esterase NEG (NEG) Urine WBC (Auto) 1-5 /hpf (0-5) Urine RBC (Auto) 0-4 /hpf (0-4) Urine Hyaline Casts (Auto) 1-5 /lpf (0-5) Urine Epithelial Cells (Auto) 5-10 /lpf (0-5) Urine Bacteria (Auto) NEG (NEG) Urine Crystals CALCIUM OXALATE (NONE Laboratory results per my review. Medications Administered Medications (Trade) Dose Ordered Sig/Ngoc Route Start Time Stop Time Status Last Admin Dose Admin Sodium Chloride (Nss 1000ml) 1,000 ml @ 999 mls/hr Q1H1M STAT IV 02/25/17 16:59 02/25/17 17:59 DC 02/25/17 17:36 999 MLS/HR Ondansetron HCl (Zofran Inj) 4 mg NOW STAT IV 02/25/17 16:59 02/25/17 17:01 DC 02/25/17 17:36 4 MG Morphine Sulfate (MoRPHine SULFATE INJ) 6 mg NOW STAT IV 02/25/17 16:59 02/25/17 17:01 DC 02/25/17 17:37 6 MG Hydromorphone HCl (Dilaudid Inj) 1 mg NOW STAT IV 02/25/17 18:24 02/25/17 18:25 DC 02/25/17 18:30 1 MG Methylprednisolone Sodium Succinate (Solu-Medrol IV) 125 mg NOW STAT IV 02/25/17 19:03 02/25/17 19:04 DC 02/25/17 19:42 125 MG Metronidazole (Flagyl Tab) 500 mg NOW STAT PO 02/25/17 19:51 02/25/17 19:52 DC 02/25/17 19:59 500 MG ED Course ED COURSE: Vital signs were reviewed and showed normal vitals The patients medical record was reviewed The above diagnostic studies were performed and reviewed. ED treatments and interventions as stated above. 1649: The patient was evaluated in room C8. A complete history and physical examination was performed. 1658: Ordered Morphine Sulfate 6 mg IV, Zofran Inj 4 mg IV, Sodium Chloride 1000 ml @ 999 mls/hr IV. 1823: Ordered Dilaudid Inj 1 mg IV. 1852: I reevaluated the patient and he is feeling better 1902: Ordered Solu-Medrol IV 125 mg IV. 1910: I discussed the patients case with Dr. Banda, Gastroenterology. He states that the patient should receive steroids. He states that the patient should give a stool sample for c-diff. He states that the patient should be placed on Flagyl if the sample does not come back or if he cannot give a stool sample. 1915: I reevaluated the patient and updated him at this time. He denies any recent antibiotic use. 1943: Upon reevaluation, the patient is unable to provide a stool sample.I discussed my findings with the patient and he understands and agrees with the treatment plan. Case management will set up an appointment with the patient's PCP tomorrow. Based on the patients age, coexisting illnesses, exam and lab findings the decision to treat as an outpatient was made. The patient remained stable while under my care. The patient appeared well at the time of discharge. 1950: Ordered Flagyl Tab 500 mg PO. Medical Decision Differential diagnoses includes but is not limited to gastritis, peptic ulcer disease, GERD, gallbladder disease, pancreatitis, small bowel obstruction, acute coronary syndrome, pericarditis, ischemic bowel, irritable bowel disease, irritable bowel syndrome, appendicitis, diverticulitis, malignancy, hernia, urinary tract infection, torsion, perforation, trauma, infectious. Patient is a 26-year-old male who presents the ER for left lower quadrant abdominal pain which feels that his previous bouts of Crohn's. He has not been taking any of his current medications for the past year. On exam he has minimal tenderness. He does follow with GI. No recent antibiotics. CBC was unremarkable. BMP along with LFTs, bilirubin and lipase are normal. CRP and sedimentation rate were negative. UA was negative. Obstruction series was negative. Patient was given morphine and Dilaudid with improvement of his pain. No vomiting while in the ER. He was able to tolerate Gatorade. Discussed case with GI and they recommended a C. difficile and Flagyl. Patient was given a dose of Flagyl and steroids and discharged to follow-up with GI. Care managers will set him up appointment with his PCP tomorrow to give a stool sample and re-eval. Discussed with Pt concerning signs and symptoms to watch out for. Pt was instructed to follow up with their PCP and discussed with the patient their option to return to the ED at anytime for persistent or worsening symptoms. The appropriate anticipatory guidance and out-patient management, including indications for return to the emergency department, were explained at length to the patient and understood. Consults Time Called: 1899 Consulting Physician: Dr. Banda, Gastroenterology Returned Call: 1910 I discussed the patients case with Dr. Banda, Gastroenterology. He states that the patient should receive steroids. He states that the patient should give a stool sample for c-diff. He states that the patient should be placed on Flaggyl if the sample does not come back or if he cannot give a stool sample. Impression Primary Impression: Acute Crohn's disease Scribe Attestation The scribe's documentation has been prepared under my direction and personally reviewed by me in its entirety. I confirm that the note above accurately reflects all work, treatment, procedures, and medical decision making performed by me. Departure Information Dispostion Home / Self-Care Prescriptions Prednisone (PREDNISONE) 50 Mg Tab 50 MG PO DAILY for 4 Days, TAB Prov: Kishor Toth, DO 02/25/17 Metronidazole (Flagyl) 500 Mg Tab 500 MG PO TID for 10 Days, #30 TAB Prov: Kihsor Toth, DO 02/25/17 Referrals No Doctor, Assigned (PCP) Addi Fitch M.D. Forms HOME CARE DOCUMENTATION FORM, IMPORTANT VISIT INFORMATION Patient Instructions ED Inflam Bowel Disease [facility] Additional Instructions Please follow up with your primary care doctor with in the next 24 hours. Any worsening of your symptoms, please return to the ED immediately. This includes fevers greater than 100.4, passing out, worsening pain, or any other concerning signs or symptoms from your standpoint. Please follow up tomorrow with your primary care doctor to give a stool sample for possible C. difficile. Please contact GI tomorrow and please get in to be reevaluated and get a stool sample as well. Problem Qualifiers Primary Impression: Acute Crohn's disease Digestive disease complication type: without complication Qualified Codes: K50.90 - Crohn's disease, unspecified, without complications
== END 2017-02-25 20:01 | disposition home or self-care (01) ==
LOC: C.EDB 16:42 → C.EDC 20:01
DX: K50.90 Crohn's disease, unspecified, without complications (principal); R10.9 Unspecified abdominal pain; F17.200 Nicotine dependence, unspecified, uncomplicated

== ENCOUNTER 2017-05-12 20:33 | Emergency (ER) | payer BC ==
[~2017-05-12] VITALS: Ht 195.6 cm; Wt 85.8 kg
[~2017-05-12 20:33] MED LIST changes: -ONDA4TAB10 SL; -OXYC1TAB3 PO; -PRED20TA PO; +ZFRODT/8 SQ; +ZNTT/150 PO
[2017-05-12 20:43] VITALS: TEMP 36.6; Ht 195.6 cm; Wt 85.8 kg
[2017-05-12] MEDS ORDERED: MESA1.2T PO (21:12)
[2017-05-12] MEDS ORDERED: HYDROmorphone INJ 1 MG/ML SYR IV STA (22:00)
[2017-05-12] MEDS ORDERED: SODIUM CHLORIDE 0.9% 1000ML 1,000 ML IV STA (22:00)
[2017-05-12] MEDS ORDERED: ONDANSETRON INJ 2 MG/ML 2 ML VIAL IV STA (22:00)
--- NOTE | 2017-05-12 22:13 | EMERGENCY ROOM VISIT NOTE ---
History First contact with patient: 21:45 Chief Complaint: RECTAL BLEEDING Stated Complaint: BLOOD IN STOOL, ABD PAIN, NAUSEA- HX CROHNS History of Present Illness The patient is a 26 year old male who presents to the Emergency Room with complaints of abdominal pain, blood in his stool and nausea. The patient has a history of Crohn's colitis and has had 2 bowel resections and states he has had 3 feet of his bowel removed. He follows with Dr. Fitch of gastroenterology and has an appointment later this month. He states that he currently takes mesalamine daily. He states the pain is in the middle of his abdomen and feels similar to previous flareups of Crohn's he has had. He denies vomiting. He has had dark red blood in his stool. He states he has had loose stools, but this has been normal for him for the past several years. He rates his overall discomfort 8/10. He denies any fevers/chills, chest pain, shortness of breath or urinary symptoms. Review of Systems A complete 10 point review of systems was reviewed with the patient with pertinent positives and negatives as per history of present illness. All else were negative. Past Medical/Surgical History Medical Problems: (1) Abdominal pain (2) Abdominal pain (3) Abdominal pain (4) Crohns disease (5) Crohns disease (6) Crohns disease (7) Exacerbation of Crohn's disease (8) H/O resection of large bowel (9) Intractable abdominal pain (10) Right corneal abrasion (11) Right shoulder pain (12) Shoulder pain, acute Family History Cancer Diabetes mellitus FH: heart disease Hypertension Lung disease Social History Smoking Status: Current Every Day Smoker Alcohol Use: occasionally Drug Use: none Marital Status: in relationship Housing Status: lives with significant other Occupation Status: employed Current/Historical Medications Scheduled Mesalamine (Lialda), 2 TAB PO DAILY Prednisone (Prednisone), 0 PO DAILY Physical Exam Vital Signs Date Time Temp Pulse Resp B/P (MAP) Pulse Ox O2 Delivery O2 Flow Rate FiO2 05/13/17 00:35 68 18 105/61 96 Room Air 05/12/17 22:54 61 18 117/69 96 Room Air 05/12/17 20:43 36.6 78 16 126/75 98 Room Air Physical Exam VITALS: Vitals are noted on the nurse's note and reviewed by myself. Vital signs stable. GENERAL: This is a 26-year-old male, in no acute distress, nondiaphoretic, well- developed well-nourished. MOUTH: Mucous membranes moist. HEART: Regular rate and rhythm without murmurs gallops or rubs. LUNGS: Clear to auscultation bilaterally without wheezes, rales or rhonchi. ABDOMEN: Positive bowel sounds x 4. Soft, nondistended. Moderate tenderness to palpation in the periumbilical region. No guarding or rebound tenderness. NEURO: Patient was alert and oriented to person place and time. Medical Decision & Procedures ER Provider Diagnostic Interpretation: ABDOMINAL SERIES: Scattered air-fluid levels without convincing evidence of bowel obstruction. Laboratory Results 05/12/17 22:16 Red Blood Count 5.03, Mean Corpuscular Volume 90.5, Mean Corpuscular Hemoglobin 30.2, Mean Corpuscular Hemoglobin Concent 33.4, Mean Platelet Volume 10.9, Neutrophils (%) (Auto) 61.2, Lymphocytes (%) (Auto) 29.8, Monocytes (%) (Auto) 6.1, Eosinophils (%) (Auto) 2.3, Basophils (%) (Auto) 0.5, Neutrophils # (Auto) 4.68, Lymphocytes # (Auto) 2.28, Monocytes # (Auto) 0.47, Eosinophils # (Auto) 0.18, Basophils # (Auto) 0.04 05/12/17 22:16 Test 05/12/17 22:16 05/12/17 22:55 White Blood Count 7.66 K/uL (4.8-10.8) Red Blood Count 5.03 M/uL (4.7-6.1) Hemoglobin 15.2 g/dL (14.0-18.0) Hematocrit 45.5 % (42-52) Mean Corpuscular Volume 90.5 fL (80-100) Mean Corpuscular Hemoglobin 30.2 pg (25-34) Mean Corpuscular Hemoglobin Concent 33.4 g/dl (32-36) Platelet Count 251 K/uL (130-400) Mean Platelet Volume 10.9 fL (7.4-10.4) Neutrophils (%) (Auto) 61.2 % Lymphocytes (%) (Auto) 29.8 % Monocytes (%) (Auto) 6.1 % Eosinophils (%) (Auto) 2.3 % Basophils (%) (Auto) 0.5 % Neutrophils # (Auto) 4.68 K/uL (1.4-6.5) Lymphocytes # (Auto) 2.28 K/uL (1.2-3.4) Monocytes # (Auto) 0.47 K/uL (0.11-0.59) Eosinophils # (Auto) 0.18 K/uL (0-0.5) Basophils # (Auto) 0.04 K/uL (0-0.2) RDW Standard Deviation 42.7 fL (36.4-46.3) RDW Coefficient of Variation 13.0 % (11.5-14.5) Immature Granulocyte % (Auto) 0.1 % Immature Granulocyte # (Auto) 0.01 K/uL (0.00-0.02) Erythrocyte Sedimentation Rate 2 mm/hr (0-14) Anion Gap 3.0 mmol/L (3-11) Est Creatinine Clear Calc Drug Dose 148.6 ml/min Estimated GFR () 132.7 Estimated GFR (Non- 114.5 BUN/Creatinine Ratio 9.4 (10-20) Calcium Level 8.5 mg/dl (8.5-10.1) Total Bilirubin 0.4 mg/dl (0.2-1) Direct Bilirubin < 0.1 mg/dl (0-0.2) Aspartate Amino Transf (AST/SGOT) 8 U/L (15-37) Alanine Aminotransferase (ALT/SGPT) 26 U/L (12-78) Alkaline Phosphatase 132 U/L (45-117) C-Reactive Protein < 0.29 mg/dl (0-0.29) Total Protein 6.0 gm/dl (6.4-8.2) Albumin 3.3 gm/dl (3.4-5.0) Lipase 113 U/L (73-393) Urine Color DK YELLOW Urine Appearance CLEAR (CLEAR) Urine pH 6.0 (4.5-7.5) Urine Specific [place] 1.032 (1.000-1.030) Urine Protein NEG (NEG) Urine Glucose (UA) NEG (NEG) Urine Ketones TRACE (NEG) Urine Occult Blood NEG (NEG) Urine Nitrite NEG (NEG) Urine Bilirubin NEG (NEG) Urine Urobilinogen NEG (NEG) Urine Leukocyte Esterase NEG (NEG) Medications Administered Medications (Trade) Dose Ordered Sig/Ngoc Route Start Time Stop Time Status Last Admin Dose Admin Sodium Chloride 1,000 ml @ 999 mls/hr Q1H1M STAT IV 05/12/17 22:00 05/12/17 23:00 DC 05/12/17 22:10 999 MLS/HR Hydromorphone HCl (Dilaudid Inj) 1 mg NOW STAT IV 05/12/17 22:00 05/12/17 22:01 DC 05/12/17 22:09 1 MG Ondansetron HCl (Zofran Inj) 4 mg NOW STAT IV 05/12/17 22:00 05/12/17 22:01 DC 05/12/17 22:09 4 MG Promethazine HCl 12.5 mg/Sodium Chloride 50.5 ml @ 204 mls/hr NOW STAT IV 05/12/17 23:14 05/12/17 23:28 DC 05/12/17 23:29 204 MLS/HR Sodium Chloride 500 ml @ 999 mls/hr Q31M STAT IV 05/13/17 00:16 05/13/17 00:46 DC 05/13/17 00:32 999 MLS/HR Hydromorphone HCl (Dilaudid Inj) 0.5 mg NOW STAT IV 05/13/17 00:16 05/13/17 00:17 DC 05/13/17 00:32 0.5 MG Methylprednisolone Sodium Succinate (Solu-Medrol IV) 125 mg NOW STAT IV 05/13/17 00:17 05/13/17 00:18 DC 05/13/17 00:31 125 MG ED Course The patient was evaluated as above. Labs were drawn and IV access was obtained. Patient was medicated with 1 mg Dilaudid, 4 mg Zofran and 1 L normal saline solution. Abdominal series was performed and read by radiology as above. Patient was reevaluated and findings were discussed. He will be discharged home. He was given an additional dose of Phenergan, 0.5 mg Dilaudid, and 500 mL normal saline solution. He was given a dose of Solu-Medrol IV. Discharge instructions were reviewed with the patient. The patient verbalized understanding of my assessment and treatment plan and was discharged home in good condition. Medical Decision Differential diagnosis includes Crohn's flareup, fistula, abscess, perforation, gastritis, colitis, mesenteric adenitis, among others. The patient is a 26-year-old male with past medical history of Crohn's disease who presents today complaining of a possible Crohn's flareup. Labs revealed no leukocytosis, anemia or concerning electrolyte abnormalities. Inflammatory markers were not elevated. Urinalysis was not suggestive of infection. I initially had ordered a CT scan of the patient's abdomen and pelvis, but after review of his charts realized that the patient has had multiple CT scans in the past few years. Additionally, he has no leukocytosis or elevation of sedimentation rate or CRP on lab testing today. X-ray did show air-fluid levels but this is similar to a previous abdominal x-ray and I do not feel this represents a bowel obstruction given the patient's clinical presentation. I had a discussion with the patient regarding risks/benefits of performing CT scan versus discharge home to follow-up with GI and the patient much prefers to be discharged home. He has done well with steroids in the past and will be placed on a prednisone taper. He was given a dose of IV Solu-Medrol in the emergency department. He was instructed to return here for fevers, vomiting, or worsening pain. The patient's case was reviewed with Dr. Boone, ED attending physician, who agreed with my assessment and treatment plan. Based on the patient's presentation and work up, I feel the patient is stable for outpatient treatment. The patient was educated to return to the emergency department for any worsening of their current condition or new/concerning symptoms. He will follow up with his ad taker. Medication Reconcilliation Current Medication List: was personally reviewed by me Blood Pressure Screening Patient's blood pressure: Normal blood pressure Impression Primary Impression: Exacerbation of Crohn's disease Departure Information Dispostion Home / Self-Care Condition GOOD Prescriptions Prednisone (Prednisone) 20 Mg Tab 0 PO DAILY, #18 TAB 3 DAILY FOR 3 DAYS, THEN 2 DAILY FOR 3 DAYS, THEN 1 DAILY FOR 3 DAYS. Prov: Laura Olsen ., JAYMIE 05/13/17 Referrals No Doctor, Assigned (PCP) Patient Instructions [facility] Additional Instructions Prednisone as prescribed. For pain control, you can use the following [id number] medicines (if >12 yo): - Regular strength (325mg/tab) Tylenol (acetaminophen) 2 tabs every 4-6 hours as needed. Do not exceed 12 tablets in a 24 hour period. Avoid taking more than 4 grams (4000 mg) of Tylenol per day. This includes any other sources of acetaminophen you may take on a regular basis. - Regular strength (200 mg/tab) Advil (ibuprofen) 1-2 tabs every 4-6 hours as needed. Do not exceed a dose of 3200 mg per day. Keep a clear liquid diet for the next 48 hours, then you may advance to food as tolerated. Call your ad taker tomorrow to schedule follow-up. Return to the emergency department with any worsening abdominal pain, vomiting, fevers or any other new/concerning symptoms. Problem Qualifiers Primary Impression: Exacerbation of Crohn's disease Digestive disease complication type: with rectal bleeding Qualified Codes: K50.911 - Crohn's disease, unspecified, with rectal bleeding
[2017-05-12 22:36] LABS: BASO % 0.5 %; BASO ABS # 0.04 K/uL (0-0.2); COMPLETE YES; EOS % 2.3 %; HEMATOCRIT 45.5 % (42-52); IG% 0.1 %; LYMPH % 29.8 %; LYMPH ABS # 2.28 K/uL (1.2-3.4); MEAN CELL VOLUME 90.5 fL (80-100); MEAN CORPUSCULAR HEMOGLOBIN 30.2 pg (25-34); MEAN CORPUSCULAR HGB CONC 33.4 g/dl (32-36); MEAN PLATELET VOLUME 10.9 fL (7.4-10.4); MONO % 6.1 %; NEUT % 61.2 %; PLATELET COUNT 251 K/uL (130-400); RED BLOOD COUNT 5.03 M/uL (4.7-6.1); WHITE BLOOD COUNT 7.66 K/uL (4.8-10.8)
[2017-05-12 22:57] LABS: ALT/SGPT 26 U/L (12-78); AST/SGOT 8 U/L (15-37); BLOOD UREA NITROGEN 9 mg/dl (7-18); BUN/CREATININE RATIO 9.4 (10-20); CALCIUM 8.5 mg/dl (8.5-10.1); CARBON DIOXIDE 31 mmol/L (21-32); CHLORIDE 110 mmol/L (98-107); CREATININE 0.93 mg/dl (0.60-1.40); GLUCOSE 86 mg/dl (70-99); POTASSIUM 3.8 mmol/L (3.5-5.1); SODIUM 144 mmol/L (136-145)
[2017-05-12 23:01] LABS: ALKALINE PHOSPHATASE 132 U/L (45-117); C-REACTIVE PROTEIN < 0.29 mg/dl (0-0.29)
[2017-05-12 23:13] LABS: URINE APPEARANCE CLEAR (CLEAR); URINE BILIRUBIN NEG (NEG); URINE COLOR DK YELLOW; URINE NITRITE NEG (NEG); URINE SPECIFIC GRAVITY 1.032 (1.000-1.030); UROBILINOGEN NEG (NEG); ZZUR CULT IF INDIC CLEAN CATCH NO
[2017-05-12] MEDS ORDERED: PROMETHAZINE HCL INJ 12.5 MG in SODIUM CHLORIDE 0.9% 50ML 50 ML IV STA (23:14)
[2017-05-12 23:15] LABS: MANUAL MICROSCOPIC REQUIRED? NO; REVIEW REQ? NO
[2017-05-12] MEDS ORDERED: PROMETHAZINE HCL INJ 25 MG/ML 1 ML VIAL ONE (23:26)
[2017-05-13] MEDS ORDERED: HYDROmorphone INJ 0.5 MG/0.5 ML SYR IV STA (00:16)
[2017-05-13] MEDS ORDERED: SODIUM CHLORIDE 0.9% 500ML 500 ML IV STA (00:16)
[2017-05-13] MEDS ORDERED: METHYLPREDNISOLONE 125 MG VIAL IV STA (00:17)
[2017-05-13 00:35] VITALS: BP 105/61; PULSE 68; O2SAT 96
[2017-05-13] MEDS ORDERED: PRED20TA PO (00:40)
--- NOTE | 2017-05-13 07:58 | DIAGNOSTIC IMAGING REPORT ---
ABDOMEN 2VIEW W/PA CHEST RTN CLINICAL HISTORY: 26 years-old Male presenting with periumbilical pain, nausea. TECHNIQUE: PA view of the chest and supine and upright views of the abdomen were obtained. COMPARISON: 02/25/2017. FINDINGS: Cardiomediastinal silhouette normal. Lungs and pleural spaces clear. Suture margin noted in the right lower quadrant, consistent with ileocolic anastomosis. Density within the small bowel suggest prior contrast administration. Mild gaseous distention of colon without a clear haustral pattern. No gross evidence of bowel obstruction. No free intraperitoneal gas. Osseous structures normal. IMPRESSION: 1. No acute cardiopulmonary disease. 2. Mild gaseous distention of presumably transverse colon without a clear haustral pattern. This may be projectional. If there is continuing clinical concern, follow-up imaging could be obtained. 3. Postsurgical changes ileocolic anastomosis. Electronically signed by: Aaron Doherty M.D. 05/13/2017 7:56 AM Dictated Date/Time: 05/13/2017 7:53 AM
== END 2017-05-13 01:01 | disposition home or self-care (01) ==
LOC: C.EDB 20:35 → C.EDA 05-13 01:01
DX: K50.911 Crohn's disease, unspecified, with rectal bleeding (principal); F17.200 Nicotine dependence, unspecified, uncomplicated; Z83.3 Family history of diabetes mellitus; Z82.49 Family history of ischemic heart disease and other diseases of the circulatory system

== ENCOUNTER 2017-07-09 21:42 | Emergency (ER) | payer SELFPAY ==
[~2017-07-09] VITALS: Ht 188 cm; Wt 86.1 kg
[~2017-07-09 21:42] MED LIST changes: +MESA1.2T PO; +PRED20TA PO; -ZFRODT/8 SQ; -ZNTT/150 PO
[2017-07-09 21:47] VITALS: TEMP 36.7; Ht 188 cm; Wt 86.1 kg
[2017-07-09] MEDS ORDERED: ONDANSETRON INJ 2 MG/ML 2 ML VIAL IV STA (21:59)
[2017-07-09] MEDS ORDERED: SODIUM CHLORIDE 0.9% 1000ML 1,000 ML IV STA (21:59)
[2017-07-09] MEDS ORDERED: MoRPHine SULFATE 4 MG/ML 1 ML CARP\\VIAL IV PRN (22:00)
--- NOTE | 2017-07-09 22:08 | EMERGENCY ROOM VISIT NOTE ---
History Report prepared by Rafia: Albin Mata Under the Supervision of: Dr. Dez Angeles D.O. First contact with patient: 21:50 Chief Complaint: ABDOMINAL PAIN Stated Complaint: ABD PAIN, NAUSEA W/CROHNS DISEASE History of Present Illness The patient is a 27 year old male who presents to the Emergency Room with complaints of constant abdominal pain starting a couple of days ago. He rates his pain as a 6/10 in severity and describes the pain as a stabbing/cramping sensation. The patient states that he has also been experiencing nausea. He states that he believes he is having a flare up of his Crohn disease. The patient states that he has not had a problem with his Crohn disease since April 2016. He states that he was admitted and had a colonoscopy. The patient admits that he has had three feet of his intestine cut out and two bowel resections. He states that he has not had a normal bowel movement since he was 19. The patient reports that his GI doctor is Dr. Galeano and he has not seen him since April. He also admits to a history of a fatty liver. The patient denies rectal pain, fevers, chills, and any other medical problems. Source of History: patient Onset: a couple of days ago Position: abdomen Symptom Intensity: 6/10 Quality: stabbing, cramping Timing: constant Associated Symptoms: + nausea, No fevers, No chills Review of Systems See HPI for pertinent positives & negatives. A total of 10 systems reviewed and were otherwise negative. Past Medical & Surgical Medical Problems: (1) Abdominal pain (2) Abdominal pain (3) Abdominal pain (4) Crohns disease (5) Crohns disease (6) Crohns disease (7) Exacerbation of Crohn's disease (8) H/O resection of large bowel (9) Intractable abdominal pain (10) Right corneal abrasion (11) Right shoulder pain (12) Shoulder pain, acute Family History Cancer Diabetes mellitus FH: heart disease Hypertension Lung disease Social History Smoking Status: Current Every Day Smoker Alcohol Use: occasionally Drug Use: none Marital Status: in relationship Housing Status: lives with significant other Occupation Status: employed Current/Historical Medications Scheduled Mesalamine (Lialda), 2 TAB PO DAILY Allergies Coded Allergies: Amoxicillin (Verified Allergy, Unknown, Unknown, 07/09/17) Reported by PT. Pt states allergy only to Amoxicillin. Physical Exam Vital Signs Date Time Temp Pulse Resp B/P (MAP) Pulse Ox O2 Delivery O2 Flow Rate FiO2 07/10/17 00:14 49 16 113/65 96 Room Air 07/09/17 23:12 54 16 115/74 97 Room Air 07/09/17 21:47 36.7 72 16 129/86 97 Room Air Physical Exam GENERAL: Patient is awake, alert, and in no acute distress. Patient is resting comfortably and showing no signs of anxiety EYES: The conjunctivae are clear. The pupils are round and reactive. EARS, NOSE, MOUTH AND THROAT: The nose is without any evidence of any deformity. Mucous membranes are moist tongue is midline NECK: The neck is nontender and supple. RESPIRATORY: Normal respiratory effort is noted there is no evidence of wheezing rhonchi or rales CARDIOVASCULAR: Regular rate and rhythm noted there no murmurs rubs or gallops normal S1 normal S2 GASTROINTESTINAL: The abdomen is soft. Bowel sounds are present in all quadrants. Abdomen is diffusely tender. No guarding, rigidity, or rebound noted. MUSCULOSKELETAL/EXTREMITIES: There is no evidence of gross deformity full range of motion is noted in the hips and shoulders SKIN: There is no obvious evidence of any rash. There are no petechiae, pallor or cyanosis noted. NEUROLOGIC: Patient is awake alert and oriented x3 Medical Decision & Procedures ER Provider Diagnostic Interpretation: X-ray results as stated below per interpretation by me. CHEST/ABDOMEN XRAY Heart size is normal. No free air. No definite infiltrate. Smaller right pleural effusion unchanged from 05/12/17. No signs of bowel obstruction. No free air. Nonspecific bowel gas pattern. Laboratory Results 07/09/17 22:26 Red Blood Count 4.92, Mean Corpuscular Volume 91.7, Mean Corpuscular Hemoglobin 31.5, Mean Corpuscular Hemoglobin Concent 34.4, Mean Platelet Volume 10.8, Neutrophils (%) (Auto) 60.2, Lymphocytes (%) (Auto) 29.7, Monocytes (%) (Auto) 5.8, Eosinophils (%) (Auto) 3.8, Basophils (%) (Auto) 0.3, Neutrophils # (Auto) 5.39, Lymphocytes # (Auto) 2.66, Monocytes # (Auto) 0.52, Eosinophils # (Auto) 0.34, Basophils # (Auto) 0.03 07/09/17 22:26 Test 07/09/17 22:26 White Blood Count 8.96 K/uL (4.8-10.8) Red Blood Count 4.92 M/uL (4.7-6.1) Hemoglobin 15.5 g/dL (14.0-18.0) Hematocrit 45.1 % (42-52) Mean Corpuscular Volume 91.7 fL (80-100) Mean Corpuscular Hemoglobin 31.5 pg (25-34) Mean Corpuscular Hemoglobin Concent 34.4 g/dl (32-36) Platelet Count 253 K/uL (130-400) Mean Platelet Volume 10.8 fL (7.4-10.4) Neutrophils (%) (Auto) 60.2 % Lymphocytes (%) (Auto) 29.7 % Monocytes (%) (Auto) 5.8 % Eosinophils (%) (Auto) 3.8 % Basophils (%) (Auto) 0.3 % Neutrophils # (Auto) 5.39 K/uL (1.4-6.5) Lymphocytes # (Auto) 2.66 K/uL (1.2-3.4) Monocytes # (Auto) 0.52 K/uL (0.11-0.59) Eosinophils # (Auto) 0.34 K/uL (0-0.5) Basophils # (Auto) 0.03 K/uL (0-0.2) RDW Standard Deviation 44.3 fL (36.4-46.3) RDW Coefficient of Variation 13.3 % (11.5-14.5) Immature Granulocyte % (Auto) 0.2 % Immature Granulocyte # (Auto) 0.02 K/uL (0.00-0.02) Erythrocyte Sedimentation Rate 2 mm/hr (0-14) Urine Color YELLOW Urine Appearance CLEAR (CLEAR) Urine pH 6.0 (4.5-7.5) Urine Specific [place] 1.023 (1.000-1.030) Urine Protein NEG (NEG) Urine Glucose (UA) NEG (NEG) Urine Ketones NEG (NEG) Urine Occult Blood NEG (NEG) Urine Nitrite NEG (NEG) Urine Bilirubin NEG (NEG) Urine Urobilinogen NEG (NEG) Urine Leukocyte Esterase NEG (NEG) Anion Gap 6.0 mmol/L (3-11) Est Creatinine Clear Calc Drug Dose 119.4 ml/min Estimated GFR () 107.6 Estimated GFR (Non- 92.8 BUN/Creatinine Ratio 6.7 (10-20) Calcium Level 8.6 mg/dl (8.5-10.1) Total Bilirubin 0.4 mg/dl (0.2-1) Direct Bilirubin < 0.1 mg/dl (0-0.2) Aspartate Amino Transf (AST/SGOT) 10 U/L (15-37) Alanine Aminotransferase (ALT/SGPT) 19 U/L (12-78) Alkaline Phosphatase 145 U/L (45-117) C-Reactive Protein < 0.29 mg/dl (0-0.29) Total Protein 6.6 gm/dl (6.4-8.2) Albumin 3.8 gm/dl (3.4-5.0) Lipase 124 U/L (73-393) Laboratory results per my review. Medications Administered Medications (Trade) Dose Ordered Sig/Ngoc Route Start Time Stop Time Status Last Admin Dose Admin Sodium Chloride 1,000 ml @ 999 mls/hr Q1H1M STAT IV 07/09/17 21:59 07/09/17 22:59 DC 07/09/17 22:57 999 MLS/HR Ondansetron HCl (Zofran Inj) 4 mg NOW STAT IV 07/09/17 21:59 07/09/17 22:01 DC 07/09/17 22:57 4 MG Hydromorphone HCl (Dilaudid Inj) 1 mg NOW STAT IV 07/09/17 22:47 07/09/17 22:48 DC 07/09/17 22:59 1 MG ED Course 2157: The patient was evaluated in room C03. A complete history and physical examination were performed. 2158: Ordered Zofran Injection 4 mg IV, Sodium Chloride 1000 ml @ 999 mls/hr IV. 2199: Ordered Morphine Sulfate 4 mg IV. 7: Ordered Dilaudid Injection 1 mg IV. 4: Upon reevaluation, the patient is resting comfortably. I discussed the results and treatment plan with him. The patient verbalized agreement of the treatment plan. He was discharged home. Medical Decision Differential diagnosis: Etiologies such as appendicitis, diverticulitis, PUD, biliary pathology, UTI, pancreatitis, obstruction, mesenteric ischemia, aortic pathology, infections, inflammatory bowel disease, renal colic, as well as others were entertained. Nursing notes reviewed. Patient's previous electronic medical records reviewed. The patient is a 27-year-old male who presented to the emergency department for evaluation of abdominal pain. The patient is a history of Crohn's disease. He felt his pain was consistent with his previous episodes of Crohn's. I discussed patient's laboratory and radiographic studies with him. The patient was treated with IV fluids IV pain medicine IV antiemetics. His physical exam was not consistent with an acute surgical abdomen. He was encouraged to follow-up with primary care physician as well as his primary process control supervisor this is possible. Otherwise she was encouraged to continue all medications as prescribed and return to the emergency department immediately if symptoms change worsen or the need arises. Medication Reconcilliation Current Medication List: was personally reviewed by me Blood Pressure Screening Patient's blood pressure: Elevated blood pressure Blood pressure disposition: Elevated BP felt to be situational Impression Primary Impression: Abdominal pain Additional Impression: Crohn disease Scribe Attestation The scribe's documentation has been prepared under my direction and personally reviewed by me in its entirety. I confirm that the note above accurately reflects all work, treatment, procedures, and medical decision making performed by me. Departure Information Dispostion Home / Self-Care Referrals No Doctor, Assigned (PCP) Forms HOME CARE DOCUMENTATION FORM, IMPORTANT VISIT INFORMATION Patient Instructions Crohn Disease, My [facility] Additional Instructions Continue all medications as prescribed. Drink plenty clear liquids. Follow-up with your family as well as her process control supervisor as soon as possible. Return to emergency department if symptoms change worsen or the need arises. Problem Qualifiers Primary Impression: Abdominal pain Abdominal location: generalized Qualified Codes: R10.84 - Generalized abdominal pain Additional Impression: Crohn disease Gastrointestinal tract location: unspecified location Digestive disease complication type: unspecified complication Qualified Codes: K50.919 - Crohn' s disease, unspecified, with unspecified complications
[2017-07-09 22:45] LABS: BASO % 0.3 %; BASO ABS # 0.03 K/uL (0-0.2); COMPLETE YES; EOS % 3.8 %; HEMATOCRIT 45.1 % (42-52); IG% 0.2 %; LYMPH % 29.7 %; LYMPH ABS # 2.66 K/uL (1.2-3.4); MEAN CELL VOLUME 91.7 fL (80-100); MEAN CORPUSCULAR HEMOGLOBIN 31.5 pg (25-34); MEAN CORPUSCULAR HGB CONC 34.4 g/dl (32-36); MEAN PLATELET VOLUME 10.8 fL (7.4-10.4); MONO % 5.8 %; NEUT % 60.2 %; PLATELET COUNT 253 K/uL (130-400); RED BLOOD COUNT 4.92 M/uL (4.7-6.1); WHITE BLOOD COUNT 8.96 K/uL (4.8-10.8)
[2017-07-09] MEDS ORDERED: HYDROmorphone INJ 1 MG/ML SYR IV STA (22:47)
[2017-07-09 22:50] LABS: URINE APPEARANCE CLEAR (CLEAR); URINE BILIRUBIN NEG (NEG); URINE COLOR YELLOW; URINE NITRITE NEG (NEG); URINE SPECIFIC GRAVITY 1.023 (1.000-1.030); UROBILINOGEN NEG (NEG)
[2017-07-09 22:54] LABS: MANUAL MICROSCOPIC REQUIRED? NO; REVIEW REQ? NO
[2017-07-09 23:11] LABS: ALT/SGPT 19 U/L (12-78); BLOOD UREA NITROGEN 7 mg/dl (7-18); BUN/CREATININE RATIO 6.7 (10-20); C-REACTIVE PROTEIN < 0.29 mg/dl (0-0.29); CALCIUM 8.6 mg/dl (8.5-10.1); CARBON DIOXIDE 27 mmol/L (21-32); CHLORIDE 108 mmol/L (98-107); GLUCOSE 81 mg/dl (70-99); POTASSIUM 4.2 mmol/L (3.5-5.1); SODIUM 141 mmol/L (136-145)
[2017-07-09 23:13] LABS: ALKALINE PHOSPHATASE 145 U/L (45-117); AST/SGOT 10 U/L (15-37)
[2017-07-10 00:14] VITALS: BP 113/65; PULSE 49; O2SAT 96
--- NOTE | 2017-07-10 05:25 | DIAGNOSTIC IMAGING REPORT ---
ABDOMEN 2VIEW W/PA CHEST RTN CLINICAL HISTORY: 27 years-old Male presenting with ABDOMINAL PAIN/GI. TECHNIQUE: PA view of the chest and supine and upright views of the abdomen were obtained. COMPARISON: 05/12/2017. FINDINGS: Cardiomediastinal silhouette normal. Mild elevation of the right hemidiaphragm, unchanged. Lungs and pleural spaces clear. Nonobstructive bowel gas pattern. Anastomotic suture line noted in the right lower quadrant with a from ileocolic anastomosis. No gross pneumoperitoneum. No calcifications project over the renal shadows. Osseous structures normal. IMPRESSION: 1. No acute cardiopulmonary disease. No radiographic evidence of acute intra-abdominal pathology. Electronically signed by: Aaron Doherty M.D. 07/10/2017 5:23 AM Dictated Date/Time: 07/10/2017 5:22 AM
== END 2017-07-10 00:11 | disposition home or self-care (01) ==
LOC: C.EDB 21:43 → C.EDC 07-10 00:11
DX: R10.84 Generalized abdominal pain (principal); K50.919 Crohn's disease, unspecified, with unspecified complications; R11.2 Nausea with vomiting, unspecified; Z79.899 Other long term (current) drug therapy; Z90.49 Acquired absence of other specified parts of digestive tract; Z82.49 Family history of ischemic heart disease and other diseases of the circulatory system; Z83.3 Family history of diabetes mellitus; Z83.6 Family history of other diseases of the respiratory system; F17.200 Nicotine dependence, unspecified, uncomplicated

== ENCOUNTER 2017-07-26 20:35 | Emergency (ER) | payer SELFPAY ==
[~2017-07-26] VITALS: Ht 188 cm; Wt 83.9 kg
[~2017-07-26 20:35] MED LIST changes: -PRED20TA PO
[2017-07-26 20:42] VITALS: TEMP 36.3; Ht 188 cm; Wt 83.9 kg
[2017-07-26 21:21] LABS: BASO % 0.3 %; BASO ABS # 0.03 K/uL (0-0.2); COMPLETE YES; EOS % 2.5 %; IG% 0.1 %; LYMPH % 24.6 %; LYMPH ABS # 2.14 K/uL (1.2-3.4); MEAN CELL VOLUME 90.4 fL (80-100); MEAN CORPUSCULAR HEMOGLOBIN 32.3 pg (25-34); MEAN CORPUSCULAR HGB CONC 35.8 g/dl (32-36); MEAN PLATELET VOLUME 10.5 fL (7.4-10.4); NEUT % 66.5 %; PLATELET COUNT 238 K/uL (130-400); RED BLOOD COUNT 4.98 M/uL (4.7-6.1); WHITE BLOOD COUNT 8.71 K/uL (4.8-10.8)
[2017-07-26 21:41] LABS: BUN/CREATININE RATIO 10.3 (10-20); CALCIUM 9.1 mg/dl (8.5-10.1); CREATININE 0.95 mg/dl (0.60-1.40); POTASSIUM 3.6 mmol/L (3.5-5.1)
[2017-07-26] MEDS ORDERED: HYDROmorphone INJ 1 MG/ML SYR IV STA (21:43)
[2017-07-26] MEDS ORDERED: SODIUM CHLORIDE 0.9% 1000ML 1,000 ML IV STA (21:43)
[2017-07-26] MEDS ORDERED: ONDANSETRON INJ 2 MG/ML 2 ML VIAL IV STA (21:43)
[2017-07-26 21:44] LABS: ALB/GLOB RATIO 1.4 (0.9-2)
[2017-07-26 22:59] LABS: URINE APPEARANCE CLEAR (CLEAR); URINE BILIRUBIN NEG (NEG); URINE COLOR YELLOW; URINE NITRITE NEG (NEG); URINE PH 5.5 (4.5-7.5); URINE SPECIFIC GRAVITY 1.022 (1.000-1.030); UROBILINOGEN NEG (NEG); ZZUR CULT IF INDIC CLEAN CATCH NO
[2017-07-26 23:00] LABS: MANUAL MICROSCOPIC REQUIRED? NO; REVIEW REQ? NO
--- NOTE | 2017-07-26 23:35 | EMERGENCY ROOM VISIT NOTE ---
History First contact with patient: 21:34 Chief Complaint: ABDOMINAL PAIN Stated Complaint: ABD. PAIN, LACK OF APPETITE, CHROHN'S DISEASE Nursing Triage Summary: states hx of crohns has been " having a flair for 1 week and i did not call my dr. i thought it would just go away." History of Present Illness The patient is a 27 year old male who presents to the Emergency Room with complaints of nausea, abdominal pain and decreased appetite. The patient states that he has a history of Crohn's disease and this feels like a Crohn's flareup. His symptoms started approximately one week ago. He reports pain in the center of the abdomen as well as nausea. He has had one episode of vomiting a few days ago. He has had a decreased appetite. He states that he has had 2 bowel resections in the past and has had 3 feet of bowel removed. He sees Dr. Fitch of gastroenterology. The patient currently takes mesalamine. He has not followed up with gastroenterology for a few months. He does not have a primary care provider. He denies any other history of abdominal surgeries. He denies any fevers/chills, blood in his stools, hematemesis, changes in bowel movements or urinary symptoms. He rates his overall discomfort a 7/10. Review of Systems A complete 10 point review of systems was reviewed with the patient with pertinent positives and negatives as per history of present illness. All else were negative. Past Medical/Surgical History Medical Problems: (1) Abdominal pain (2) Abdominal pain (3) Abdominal pain (4) Crohns disease (5) Crohns disease (6) Crohns disease (7) Exacerbation of Crohn's disease (8) H/O resection of large bowel (9) Intractable abdominal pain (10) Right corneal abrasion (11) Right shoulder pain (12) Shoulder pain, acute Family History Cancer Diabetes mellitus FH: heart disease Hypertension Lung disease Social History Smoking Status: Current Every Day Smoker Alcohol Use: occasionally Drug Use: none Marital Status: in relationship Housing Status: lives with significant other Occupation Status: employed Current/Historical Medications Scheduled Mesalamine (Lialda), 2 TAB PO DAILY Physical Exam Vital Signs Date Time Temp Pulse Resp B/P (MAP) Pulse Ox O2 Delivery O2 Flow Rate FiO2 07/26/17 23:40 55 18 102/65 98 Room Air 07/26/17 22:50 56 18 108/61 96 Room Air 07/26/17 21:52 68 18 105/57 94 Room Air 07/26/17 20:42 36.3 81 18 123/80 98 Room Air Physical Exam VITALS: Vitals are noted on the nurse's note and reviewed by myself. Vital signs stable. GENERAL: This is a 27-year-old male, in no acute distress, nondiaphoretic, well- developed well-nourished. EARS: External auditory canals clear, tympanic membranes pearly carter without erythema or effusion bilaterally. EYES: Pupils equal round and reactive to light and accommodation. MOUTH: Mucous membranes moist. HEART: Regular rate and rhythm without murmurs gallops or rubs. LUNGS: Clear to auscultation bilaterally without wheezes, rales or rhonchi. ABDOMEN: Positive bowel sounds x 4. Soft, mild central abdominal tenderness. No guarding or rebound tenderness. NEURO: Patient was alert and oriented to person place and time. Medical Decision & Procedures ER Provider Diagnostic Interpretation: ABDOMEN 2 VIEWS W/ PA CHEST RTN: FINDINGS: Cardiomediastinal and hilar silhouettes are within normal limits. Mild right hemidiaphragm elevation is again seen with chronic blunting of the right costophrenic angle. No pneumothorax, pleural effusion or focal airspace consolidation. Bones of the chest are grossly intact. There are a few scattered air-fluid levels within the left midabdomen. The bowel gas pattern is nonobstructive. Surgical suture material seen within the right lower abdomen. No pneumoperitoneum on the upright projection. No urolith or fracture. IMPRESSION: 1. No acute cardiopulmonary process. 2. Nonobstructive bowel gas pattern without pneumoperitoneum. 3. A few nonspecific air-fluid levels are present within bowel of the left midabdomen. Radiologist: Kanu Peguero MD Laboratory Results 07/26/17 20:00 Red Blood Count 4.98, Mean Corpuscular Volume 90.4, Mean Corpuscular Hemoglobin 32.3, Mean Corpuscular Hemoglobin Concent 35.8, Mean Platelet Volume 10.5, Neutrophils (%) (Auto) 66.5, Lymphocytes (%) (Auto) 24.6, Monocytes (%) (Auto) 6.0, Eosinophils (%) (Auto) 2.5, Basophils (%) (Auto) 0.3, Neutrophils # (Auto) 5.79, Lymphocytes # (Auto) 2.14, Monocytes # (Auto) 0.52, Eosinophils # (Auto) 0.22, Basophils # (Auto) 0.03 07/26/17 20:00 Test 07/26/17 20:00 07/26/17 22:50 White Blood Count 8.71 K/uL (4.8-10.8) Red Blood Count 4.98 M/uL (4.7-6.1) Hemoglobin 16.1 g/dL (14.0-18.0) Hematocrit 45.0 % (42-52) Mean Corpuscular Volume 90.4 fL (80-100) Mean Corpuscular Hemoglobin 32.3 pg (25-34) Mean Corpuscular Hemoglobin Concent 35.8 g/dl (32-36) Platelet Count 238 K/uL (130-400) Mean Platelet Volume 10.5 fL (7.4-10.4) Neutrophils (%) (Auto) 66.5 % Lymphocytes (%) (Auto) 24.6 % Monocytes (%) (Auto) 6.0 % Eosinophils (%) (Auto) 2.5 % Basophils (%) (Auto) 0.3 % Neutrophils # (Auto) 5.79 K/uL (1.4-6.5) Lymphocytes # (Auto) 2.14 K/uL (1.2-3.4) Monocytes # (Auto) 0.52 K/uL (0.11-0.59) Eosinophils # (Auto) 0.22 K/uL (0-0.5) Basophils # (Auto) 0.03 K/uL (0-0.2) RDW Standard Deviation 42.3 fL (36.4-46.3) RDW Coefficient of Variation 12.8 % (11.5-14.5) Immature Granulocyte % (Auto) 0.1 % Immature Granulocyte # (Auto) 0.01 K/uL (0.00-0.02) Anion Gap 5.0 mmol/L (3-11) Est Creatinine Clear Calc Drug Dose 138.3 ml/min Estimated GFR () 128.4 Estimated GFR (Non- 110.8 BUN/Creatinine Ratio 10.3 (10-20) Calcium Level 9.1 mg/dl (8.5-10.1) Total Bilirubin 0.6 mg/dl (0.2-1) Aspartate Amino Transf (AST/SGOT) 8 U/L (15-37) Alanine Aminotransferase (ALT/SGPT) 19 U/L (12-78) Alkaline Phosphatase 144 U/L (45-117) Total Protein 6.7 gm/dl (6.4-8.2) Albumin 3.9 gm/dl (3.4-5.0) Globulin 2.8 gm/dl (2.5-4.0) Albumin/Globulin Ratio 1.4 (0.9-2) Lipase 113 U/L (73-393) Urine Color YELLOW Urine Appearance CLEAR (CLEAR) Urine pH 5.5 (4.5-7.5) Urine Specific [place] 1.022 (1.000-1.030) Urine Protein NEG (NEG) Urine Glucose (UA) NEG (NEG) Urine Ketones NEG (NEG) Urine Occult Blood NEG (NEG) Urine Nitrite NEG (NEG) Urine Bilirubin NEG (NEG) Urine Urobilinogen NEG (NEG) Urine Leukocyte Esterase NEG (NEG) Medications Administered Medications (Trade) Dose Ordered Sig/Ngoc Route Start Time Stop Time Status Last Admin Dose Admin Sodium Chloride 1,000 ml @ 999 mls/hr Q1H1M STAT IV 07/26/17 21:43 07/26/17 22:43 DC 07/26/17 21:49 999 MLS/HR Ondansetron HCl (Zofran Inj) 4 mg NOW STAT IV 07/26/17 21:43 07/26/17 21:44 DC 07/26/17 21:49 4 MG Hydromorphone HCl (Dilaudid Inj) 1 mg NOW STAT IV 07/26/17 21:43 07/26/17 21:44 DC 07/26/17 21:49 1 MG ED Course The patient was evaluated as above. Labs were drawn and IV access was obtained. Patient was medicated with 1 L normal saline solution, 1 mg Dilaudid IV and 4 mg Zofran IV. Abdominal series was performed and read by radiology as above. Patient was reevaluated and was feeling better. Findings were discussed with the patient. Discharge instructions were reviewed with the patient. The patient verbalized understanding of my assessment and treatment plan and was discharged home in good condition. Medical Decision Differential diagnosis includes Crohn's flareup abdominal abscess, fistula, bowel obstruction, cholecystitis, pancreatitis, among others. The patient is a 27-year-old male who presents today complaining of central abdominal pain. Patient has a history of Crohn's disease and has been seen here frequently for flareups in the past. He is afebrile today and does not have a surgical abdomen on exam. Labs revealed no leukocytosis, anemia or concerning electrolyte abnormalities. Urinalysis was not suggestive of infection. Abdominal series was performed and read by radiology with no evidence of bowel obstruction. There are some scattered air-fluid levels which the patient has had in the past visits as well. I do not feel that CT is indicated at this time. I did have a lengthy discussion with the patient, as he has been here multiple times and has not attempted to follow-up with gastroenterology or his primary care provider. He was informed that the ED is not able to treat his chronic illnesses, and he needs to follow-up with his specialist for further treatment of this. The patient's case was reviewed with Dr. Boone, ED attending physician, who agreed with my assessment and treatment plan. Based on the patient's presentation and work up, I feel the patient is stable for outpatient treatment. The patient was educated to return to the emergency department for any worsening of their current condition or new/concerning symptoms. He will follow up with his PCP and senior ui designer. Medication Reconcilliation Current Medication List: was personally reviewed by me Blood Pressure Screening Patient's blood pressure: Normal blood pressure Impression Primary Impression: Exacerbation of Crohn's disease Departure Information Dispostion Home / Self-Care Condition GOOD Referrals No Doctor, Assigned (PCP) Addi Fitch M.D. Patient Instructions My [facility] Additional Instructions You have been treated in the Emergency Department your Abdominal Pain. Laboratory results and imaging studies have ruled out any emergent causes for your abdominal pain which would warrant admission or surgery. For pain control, you can use the following [id number] medicines (if >12 yo): - Regular strength (325mg/tab) Tylenol (acetaminophen) 2 tabs every 4-6 hours as needed. Do not exceed 12 tablets in a 24 hour period. Avoid taking more than 4 grams (4000 mg) of Tylenol per day. This includes any other sources of acetaminophen you may take on a regular basis. - Regular strength (200 mg/tab) Advil (ibuprofen) 1-2 tabs every 4-6 hours as needed. Do not exceed a dose of 3200 mg per day. Drink plenty of water and stay well hydrated. As with any trip to the Emergency Department, you should follow-up with your Primary Care Provider from today's visit. It is very important that you follow up with your senior ui designer regarding your ongoing abdominal pain. The emergency department is only able to provide care on an emergency basis. We are not able to treat chronic issues. Return to the emergency department if your symptoms persist despite treatment plan outlined above or if the following symptoms occur: fevers, chills, worsening nausea/vomiting, blood in your stool or urine. Problem Qualifiers Primary Impression: Exacerbation of Crohn's disease Digestive disease complication type: without complication Qualified Codes: K50.90 - Crohn's disease, unspecified, without complications
[2017-07-26 23:40] VITALS: BP 102/65; PULSE 55; O2SAT 98
--- NOTE | 2017-07-27 08:54 | DIAGNOSTIC IMAGING REPORT ---
ABDOMEN 2VIEW W/PA CHEST RTN HISTORY: 27 years-old Male abd pain, nausea, hx crohns acute generalized abdominal pain with nausea. COMPARISON: Radiographs 07/09/2017, CT 11/25/2016 TECHNIQUE: Frontal view of the chest with erect and supine views of the abdomen FINDINGS: Cardiomediastinal and hilar silhouettes are within normal limits. Mild right hemidiaphragm elevation is again seen with chronic blunting of the right costophrenic angle. No pneumothorax, pleural effusion or focal airspace consolidation. Bones of the chest are grossly intact. There are a few scattered air-fluid levels within the left midabdomen. The bowel gas pattern is nonobstructive. Surgical suture material seen within the right lower abdomen. No pneumoperitoneum on the upright projection. No urolith or fracture. IMPRESSION: 1. No acute cardiopulmonary process. 2. Nonobstructive bowel gas pattern without pneumoperitoneum. 3. A few nonspecific air-fluid levels are present within bowel of the left midabdomen. The above report was generated using voice recognition software. It may contain grammatical, syntax or spelling errors. Electronically signed by: Kanu Peguero M.D. 07/26/2017 10:50 PM Dictated Date/Time: 07/26/2017 10:47 PM
== END 2017-07-26 23:52 | disposition home or self-care (01) ==
LOC: C.EDB 20:36 → C.EDA 23:52
DX: K50.90 Crohn's disease, unspecified, without complications (principal); Z83.3 Family history of diabetes mellitus; Z82.49 Family history of ischemic heart disease and other diseases of the circulatory system; F17.200 Nicotine dependence, unspecified, uncomplicated

== ENCOUNTER 2017-12-25 00:04 | Emergency (ER) | payer OTHER ==
[~2017-12-25] VITALS: Ht 188 cm; Wt 77.3 kg
[2017-12-25 00:08] VITALS: TEMP 36.3; Ht 188 cm; Wt 77.3 kg
[2017-12-25] MEDS ORDERED: SODIUM CHLORIDE 0.9% 1000ML 1,000 ML IV ONE (00:26)
[2017-12-25] MEDS ORDERED: ONDANSETRON INJ 2 MG/ML 2 ML VIAL IV STA (00:26)
[2017-12-25] MEDS ORDERED: SODIUM CHLORIDE 0.9% 1000ML 1,000 ML IV STA (00:26)
[2017-12-25] MEDS ORDERED: HYDROmorphone INJ 1 MG/ML SYR IV STA (00:26)
--- NOTE | 2017-12-25 00:41 | EMERGENCY ROOM VISIT NOTE ---
History Report prepared by Rafia: Rios Alaniz Under the Supervision of: Dr. Ezekiel Roach M.D. First contact with patient: 00:17 Chief Complaint: ABDOMINAL PAIN Stated Complaint: ABDOMINAL PAIN,NAUSEA,BLOODY STOOL,VOMITING BLOOD History of Present Illness The patient is a 27 year old male who presents to the Emergency Room with complaints of worsening abdominal pain that began 1.5 months ago. The patient has a history of Crohn's disease and has been vomiting blood for the past 3 days with 3 episodes. He also has bloody stools which have been bright red like ketchup, with only 3-4 bowel movements which is reduced from baseline. He states he has chills and lightheadedness. He states minimal improvement with Tylenol and Aleve. He normally takes Lialda for his Crohn's disease but has been unable to because he lost his insurance due to a breakup with his girlfriend. He states that taking steroids in the past has had some improvement of his symptoms. He states that his current abdominal pain is worse than his previous episodes. He denies ingesting any red colored foods. Of note, he normally sees Dr. Fitch but he has not set up an appointment yet due to his lack of insurance coverage since his recent move from [facility] to [place]. Source of History: patient Onset: 1.5 months ago Position: abdomen Symptom Intensity: pain rated as 9/10 Timing: worsening Modifying Factors (Relieving): tylenol (minimal improvement), other ( Minimal improvement with Aleve) Associated Symptoms: + chills, + vomiting, + abdominal pain Note: Patient reports lightheadedness and bloody stools. Review of Systems See HPI for pertinent positives & negatives. A total of 10 systems reviewed and were otherwise negative. Past Medical & Surgical Medical Problems: (1) Abdominal pain (2) Abdominal pain (3) Abdominal pain (4) Crohns disease (5) Crohns disease (6) Crohns disease (7) Exacerbation of Crohn's disease (8) H/O resection of large bowel (9) Intractable abdominal pain (10) Right corneal abrasion (11) Right shoulder pain (12) Shoulder pain, acute Surgical Problems: (1) Hx of resection of large bowel Old medical records were reviewed. Nurse's notes were reviewed and I agree with. Family History Cancer Diabetes mellitus FH: heart disease Hypertension Lung disease Social History Smoking Status: Current Every Day Smoker Alcohol Use: occasionally Drug Use: none Marital Status: single (recent split) Housing Status: lives with friends Occupation Status: unemployed Current/Historical Medications Scheduled Prednisone Tab (Prednisone), 30 MG PO QD Allergies Coded Allergies: Amoxicillin (Verified Allergy, Unknown, Unknown, 07/26/17) Reported by PT. Pt states allergy only to Amoxicillin. Physical Exam Vital Signs Date Time Temp Pulse Resp B/P (MAP) Pulse Ox O2 Delivery O2 Flow Rate FiO2 12/25/17 01:48 71 20 116/73 98 Room Air 12/25/17 01:14 78 16 120/68 98 12/25/17 00:08 36.3 91 16 145/54 97 Room Air Physical Exam General: Non-ill appearing young, slender male in no acute distress. HEENT: Normal cephalic atraumatic. Pupils are equal round and reactive to light. Extraocular movements are intact. Oropharynx is pink with moist mucous membranes. No swelling of the mouth lips or tongue. Neck: Supple with a midline trachea. No meningeal signs or stiffness, no JVD or bruits. No Stridor. Chest: Clear to auscultation bilaterally. No wheezes or rhonchi. No increased work of breathing. Heart: regular rate and rhythm. Abdomen: Old surgical scars. No hernia or signs of tenderness. Nondistended without rebound guarding or rigidity. Extremities: No cyanosis clubbing or edema. No calf tenderness or assymetry Spine/Back. Non tender to palpation. No CVA tenderness Skin: Good turgor without rashes. Neurologic exam: Cranial nerves two through 12 are intact. Motor and sensation are intact and symmetrical throughout. Medical Decision & Procedures ER Provider Diagnostic Interpretation: Radiology results as stated below per my review and interpretation: Xray Acute Abdominal Series: My findings: chest is clear, no free air. No obstructive changes. CT Abdomen and Pelvis with Contrast: Compared to 11/25/16 There is wall thickening of small bowel proximal to anastomosis in the right abdomen, similar to prior study and compatible with history of Crohn's disease. Mildly distal rectosigmoid wall thickening or underdistention. No fluid collection or free air. No evidence of bowel obstruction. Prominent mesenteric lymph nodes. Mild basilar atelectatic changes. Additional incidental findings similar to prior study. Radiologist: Haven Hernandez M.D. Study ready at 01:32 and initial results transmitted at 01:47 Laboratory Results 12/25/17 00:15 Red Blood Count 4.99, Mean Corpuscular Volume 89.6, Mean Corpuscular Hemoglobin 32.7, Mean Corpuscular Hemoglobin Concent 36.5, Mean Platelet Volume 10.4, Neutrophils (%) (Auto) 76.3, Lymphocytes (%) (Auto) 15.6, Monocytes (%) (Auto) 6.9, Eosinophils (%) (Auto) 0.8, Basophils (%) (Auto) 0.2, Neutrophils # (Auto) 10.82, Lymphocytes # (Auto) 2.21, Monocytes # (Auto) 0.98, Eosinophils # (Auto) 0.11, Basophils # (Auto) 0.03 12/25/17 00:15 Test 12/25/17 00:15 White Blood Count 14.18 K/uL (4.8-10.8) Red Blood Count 4.99 M/uL (4.7-6.1) Hemoglobin 16.3 g/dL (14.0-18.0) Hematocrit 44.7 % (42-52) Mean Corpuscular Volume 89.6 fL (80-100) Mean Corpuscular Hemoglobin 32.7 pg (25-34) Mean Corpuscular Hemoglobin Concent 36.5 g/dl (32-36) Platelet Count 264 K/uL (130-400) Mean Platelet Volume 10.4 fL (7.4-10.4) Neutrophils (%) (Auto) 76.3 % Lymphocytes (%) (Auto) 15.6 % Monocytes (%) (Auto) 6.9 % Eosinophils (%) (Auto) 0.8 % Basophils (%) (Auto) 0.2 % Neutrophils # (Auto) 10.82 K/uL (1.4-6.5) Lymphocytes # (Auto) 2.21 K/uL (1.2-3.4) Monocytes # (Auto) 0.98 K/uL (0.11-0.59) Eosinophils # (Auto) 0.11 K/uL (0-0.5) Basophils # (Auto) 0.03 K/uL (0-0.2) RDW Standard Deviation 42.8 fL (36.4-46.3) RDW Coefficient of Variation 13.1 % (11.5-14.5) Immature Granulocyte % (Auto) 0.2 % Immature Granulocyte # (Auto) 0.03 K/uL (0.00-0.02) Anion Gap 8.0 mmol/L (3-11) Est Creatinine Clear Calc Drug Dose 122.2 ml/min Estimated GFR () 119.3 Estimated GFR (Non- 102.9 BUN/Creatinine Ratio 14.7 (10-20) Calcium Level 8.9 mg/dl (8.5-10.1) Total Bilirubin 0.5 mg/dl (0.2-1) Direct Bilirubin 0.1 mg/dl (0-0.2) Aspartate Amino Transf (AST/SGOT) 13 U/L (15-37) Alanine Aminotransferase (ALT/SGPT) 49 U/L (12-78) Alkaline Phosphatase 168 U/L (45-117) Total Protein 7.3 gm/dl (6.4-8.2) Albumin 3.9 gm/dl (3.4-5.0) Lipase 136 U/L (73-393) Laboratory studies as stated above per my review. Medications Administered Medications (Trade) Dose Ordered Sig/Ngoc Route Start Time Stop Time Status Last Admin Dose Admin Sodium Chloride 1,000 ml @ 999 mls/hr Q1H1M STAT IV 12/25/17 00:26 12/25/17 01:26 DC 12/25/17 00:32 999 MLS/HR Sodium Chloride 1,000 ml @ 150 mls/hr Q6H40M ONCE IV 12/25/17 00:26 12/25/17 07:05 12/25/17 00:26 150 MLS/HR Ondansetron HCl (Zofran Inj) 4 mg NOW STAT IV 12/25/17 00:26 12/25/17 00:28 DC 12/25/17 00:32 4 MG Hydromorphone HCl (Dilaudid Inj) 1 mg NOW STAT IV 12/25/17 00:26 12/25/17 00:28 DC 12/25/17 00:32 1 MG Hydromorphone HCl (Dilaudid Inj) 0.5 mg NOW STAT IV 12/25/17 01:06 12/25/17 01:08 DC 3/17/18 01:13 0.5 MG ED Course 0017: Past medical records reviewed. The patient was evaluated in room B8, and a complete history and physical examination were performed. 0026: Dilaudid Inj, 1 mg, IV; Zofran Inj, 4 mg, IV; Sodium Chloride 1000 ml @ 150 mls/hr IV; Sodium Chloride 1000 ml @ 999 mls/hr IV. 0103: I checked on the patient and he notes he still has additional pain. 0106: Dilaudid Inj, .5 mg, IV. 0135: I checked on the patient and he is resting comfortably. 0158: I checked on the patient. I talked to him at length and he feels like he would like to go home. He is currently not on any medications and I will be speaking with GI. 0202: I discussed the patient's case with Dr. Gallagher. He suggests to place the patient on Prednisone. The patient will be evaluated for further management. 0212: Prednisone, 40 mg, PO. 0220: Upon reevaluation, the patient is doing well. I discussed the results and treatment plan with the patient. He verbalized agreement of the treatment plan. The patient was discharged home. Medical Decision Differential diagnoses include Crohn's exacerbation, colitis, anaemia, infection , GI bleed, electrolyte and metabolic abnormality. This patient comes in as described above. His long history of Crohn's disease. He has not been taking meds recently due to changing insurances. He had abdominal pain and also blood in his stool. He is in fact had less stools than normal today with only 3 he had vomiting intermittently with a little bit of blood-tinged vomit. He does not appear in any distress his abdomen has surgical scars but no hernia or peritonitis. He is afebrile. IV access established hydrated with normal saline. Was given Dilaudid 1 mg IV and Zofran 4 mg IV. He is not driving. he was given a second dose of Dilaudid 0.5 mg IV. His white count is moderately elevated at 14. His hemoglobin is stable in the 16 range. He has no acute electrolyte or metabolic abnormalities. He has nothing to suggest that he has liver disease. Upon reassessment, he still is having pain and has a white count and in light of this I did explain the risk and benefits and opted to do a CAT scan on him. This was performed with IV contrast. There is no acute findings. There is nothing to suggest obstruction. I do think he can go home and the patient agrees. I did discuss case with the on-call stove refinisher Dr. Guzmán. He recommends starting on prednisone 30 mg once a day. I gave him 10 day supply and he should follow-up with Dr. Fitch, his stove refinisher on Wednesday or early this week and return to the over the weekend if: increasing pain or bleeding, worsening of symptoms, any new problems or concerns. She was happy with the plan and discharged to home. Medication Reconcilliation Current Medication List: was personally reviewed by me Blood Pressure Screening Patient's blood pressure: Elevated blood pressure Blood pressure disposition: Elevated BP felt to be situational Consults Time Called: 199 Consulting Physician: Dr. Gallagher - GI Returned Call: 201 I discussed the patient's case with Dr. Gallagher. He suggests to place the patient on Prednisone. The patient will be evaluated for further management. Impression Primary Impression: Diffuse abdominal pain Additional Impression: Exacerbation of Crohn's disease Scribe Attestation The scribe's documentation has been prepared under my direction and personally reviewed by me in its entirety. I confirm that the note above accurately reflects all work, treatment, procedures, and medical decision making performed by me. Departure Information Dispostion Home / Self-Care Prescriptions Prednisone Tab (PREDNISONE) 10 Mg Tab 30 MG PO QD for 10 Days, #30 TAB Prov: Ezekiel Roach M.D. 12/25/17 Referrals No Doctor, Assigned (PCP) Patient Instructions My [facility] Additional Instructions Rest. Drink plenty of fluids. Mild diet. Return if: Increasing pain or bleeding, worsening symptoms, fever chills, any new problems or concerns Follow-up with Dr. Fitch on Wednesday for recheck or return to the ER over the weekend if symptoms worsen Problem Qualifiers
[2017-12-25 00:45] LABS: BASO % 0.2 %; BASO ABS # 0.03 K/uL (0-0.2); EOS % 0.8 %; EOS ABS # 0.11 K/uL (0-0.5); HEMATOCRIT 44.7 % (42-52); HEMOGLOBIN 16.3 g/dL (14.0-18.0); IG# 0.03 K/uL (0.00-0.02); LYMPH % 15.6 %; LYMPH ABS # 2.21 K/uL (1.2-3.4); MEAN CELL VOLUME 89.6 fL (80-100); MEAN CORPUSCULAR HEMOGLOBIN 32.7 pg (25-34); MEAN CORPUSCULAR HGB CONC 36.5 g/dl (32-36); MEAN PLATELET VOLUME 10.4 fL (7.4-10.4); MONO % 6.9 %; MONO ABS # 0.98 K/uL (0.11-0.59); NEUT % 76.3 %; NEUT ABS # 10.82 K/uL (1.4-6.5); PLATELET COUNT 264 K/uL (130-400); RED CELL DISTRIBUTION WIDTH CV 13.1 % (11.5-14.5); RED CELL DISTRIBUTION WIDTH SD 42.8 fL (36.4-46.3); WHITE BLOOD COUNT 14.18 K/uL (4.8-10.8)
[2017-12-25 00:56] LABS: ALBUMIN 3.9 gm/dl (3.4-5.0); CALCIUM 8.9 mg/dl (8.5-10.1); CREATININE 1.01 mg/dl (0.60-1.40); POTASSIUM 3.4 mmol/L (3.5-5.1)
[2017-12-25 00:59] LABS: TOTAL PROTEIN 7.3 gm/dl (6.4-8.2)
[2017-12-25] MEDS ORDERED: HYDROmorphone INJ 0.5 MG/0.5 ML SYR IV STA (01:06)
[2017-12-25] MEDS ORDERED: OPTIRAY 320 IV PRN (01:15)
[2017-12-25] MEDS ORDERED: PRED10TA PO (02:14)
[2017-12-25 02:16] VITALS: BP 120/77; PULSE 75; O2SAT 100
--- NOTE | 2017-12-25 05:50 | DIAGNOSTIC IMAGING REPORT ---
ABDOMEN 2VIEW W/PA CHEST RTN CLINICAL HISTORY: ABDOMINAL PAIN/GI pain. Nausea. COMPARISON STUDY: 07/26/2017 FINDINGS: The soft tissues, psoas shadows, renal outlines and intestinal gas pattern appear normal. There is no evidence for bowel obstruction. There is no evidence for free intraperitoneal air. No abnormal abdominal calcifications are seen. A frontal view of the chest was performed and is unremarkable. IMPRESSION: Normal study. The above report was generated using voice recognition software. It may contain grammatical, syntax or spelling errors. Electronically signed by: Obinna Talbert M.D. 12/25/2017 5:49 AM Dictated Date/Time: 12/25/2017 5:47 AM
--- NOTE | 2017-12-25 05:54 | DIAGNOSTIC IMAGING REPORT ---
ABD/PELVIS IV CONTRAST ONLY CT DOSE: 317.76 mGy.cm HISTORY: Pain eval for crohn's exac, colitis, obstruction TECHNIQUE: Multiaxial CT images of the abdomen and pelvis were performed following the use of intravenous contrast. A dose lowering technique was utilized adhering to the principles of ALARA. COMPARISON STUDY: 11/25/2016 FINDINGS: Similar study overall. Lung bases remain clear. Liver spleen and pancreas remain unremarkable. Gallbladder is negative for distention. Spleen remains mildly prominent overall in size at 12.5 cm. Small bilateral renal cysts unchanged. Postoperative changes right flank unaltered. This consistent with a distal ileal resection and an ileal colic anastomosis. Mild wall thickening of the distal ileum proximal to the anastomosis. This is unaltered. No evidence for abscess or collection within limitations of an unenhanced scan. Several reactive mesenteric nodes unchanged. No evidence of bulky adenopathy. IMPRESSION: 1. No major change from the prior study 11/25/2016. 2. Stable postoperative changes right lower quadrant. 3. Short segment of wall thickening of the distal small bowel proximal to the anastomosis unaltered. 4. Mild reactive mesenteric marlena change also unaltered. The above report was generated using voice recognition software. It may contain grammatical, syntax or spelling errors. Electronically signed by: Obinna Talbert M.D. 12/25/2017 5:53 AM Dictated Date/Time: 12/25/2017 5:50 AM
== END 2017-12-25 02:20 | disposition home or self-care (01) ==
LOC: C.EDB 00:05
DX: R10.84 Generalized abdominal pain (principal); K50.90 Crohn's disease, unspecified, without complications; K92.0 Hematemesis; R19.5 Other fecal abnormalities; R42 Dizziness and giddiness; F17.200 Nicotine dependence, unspecified, uncomplicated; Z83.3 Family history of diabetes mellitus; Z82.49 Family history of ischemic heart disease and other diseases of the circulatory system; Z88.1 Allergy status to other antibiotic agents

== ENCOUNTER 2017-12-30 17:33 | Emergency (ER) | payer OTHER ==
[~2017-12-30] VITALS: Ht 188 cm; Wt 79.7 kg
[~2017-12-30 17:33] MED LIST changes: -MESA1.2T PO; +PRED10TA PO
[2017-12-30 17:53] VITALS: TEMP 36.4; Ht 188 cm; Wt 79.7 kg
[2017-12-30] MEDS ORDERED: SODIUM CHLORIDE 0.9% 1000ML 1,000 ML IV STA (19:03)
[2017-12-30] MEDS ORDERED: HYDROmorphone INJ 1 MG/ML SYR IV STA ×2 (19:03→22:48)
[2017-12-30] MEDS ORDERED: METOCLOPRAMIDE HCL INJ 5 MG/ML 2 ML VIAL IV. STA (19:03)
[2017-12-30] MEDS ORDERED: PRED10TA PO (19:11)
[2017-12-30] MEDS ORDERED: ACET-1693 PO (19:12)
[2017-12-30] MEDS ORDERED: OPTIRAY 320 IV PRN (19:15)
[2017-12-30 19:29] LABS: BASO % 0.3 %; BASO ABS # 0.03 K/uL (0-0.2); EOS % 2.2 %; EOS ABS # 0.25 K/uL (0-0.5); HEMATOCRIT 45.6 % (42-52); HEMOGLOBIN 16.2 g/dL (14.0-18.0); IG# 0.04 K/uL (0.00-0.02); LYMPH % 19.5 %; LYMPH ABS # 2.18 K/uL (1.2-3.4); MEAN CORPUSCULAR HEMOGLOBIN 32.3 pg (25-34); MEAN CORPUSCULAR HGB CONC 35.5 g/dl (32-36); MEAN PLATELET VOLUME 9.9 fL (7.4-10.4); MONO % 4.9 %; MONO ABS # 0.55 K/uL (0.11-0.59); NEUT % 72.7 %; NEUT ABS # 8.12 K/uL (1.4-6.5); PLATELET COUNT 241 K/uL (130-400); RED CELL DISTRIBUTION WIDTH CV 13.4 % (11.5-14.5); RED CELL DISTRIBUTION WIDTH SD 43.9 fL (36.4-46.3); WHITE BLOOD COUNT 11.17 K/uL (4.8-10.8)
[2017-12-30 19:53] LABS: ALT/SGPT 70 U/L (12-78); BLOOD UREA NITROGEN 8 mg/dl (7-18); CALCIUM 8.8 mg/dl (8.5-10.1); CARBON DIOXIDE 32 mmol/L (21-32); CREATININE 0.99 mg/dl (0.60-1.40); GLUCOSE 85 mg/dl (70-99); LIPASE 109 U/L (73-393); POTASSIUM 4.1 mmol/L (3.5-5.1); SODIUM 139 mmol/L (136-145)
[2017-12-30 19:55] LABS: ALKALINE PHOSPHATASE 167 U/L (45-117); AST/SGOT 33 U/L (15-37); TOTAL PROTEIN 7.4 gm/dl (6.4-8.2)
--- NOTE | 2017-12-30 20:17 | EMERGENCY ROOM VISIT NOTE ---
History Report prepared by Rafia: Genesis Bateman Under the Supervision of: Dr. Waldo Bedolla M.D. First contact with patient: 18:43 Chief Complaint: GI ASSESSMENT Stated Complaint: VOMITING BLOOD, BLOOD IN STOOL, ABD PAIN- CROHNS Nursing Triage Summary: Patient presents ambulatory to triage with c/o bloody stool, bloody emesis, abdominal pain, and diarrhea Was evalauted in ED on 12/25/17 Patient has history of Crohn's disease History of Present Illness The patient is a 27 year old male who presents to the Emergency Room for a GI assessment. The patient states that he has a history of Crohn Disease. He reports that he was here Wednesday for similar symptoms that have been worsening since November. He states that he was started on Prednisone 10 mg twice a day. The patient notes that he takes his medications for his Crohn twice a day. The patient complains of hematemesis, hematochezia, abdominal pain, and chills. He notes that he has an appointment with his GI, but the soonest was the beginning of January. Source of History: patient Onset: a month ago Position: abdomen Quality: other (Similar to Crohn) Timing: worsening Associated Symptoms: + chills, + abdominal pain, + hematochezia Note: The patient complains of hematemesis. Review of Systems See HPI for pertinent positives & negatives. A total of 10 systems reviewed and were otherwise negative. Past Medical & Surgical Medical Problems: (1) Abdominal pain (2) Abdominal pain (3) Abdominal pain (4) Crohns disease (5) Crohns disease (6) Crohns disease (7) Exacerbation of Crohn's disease (8) H/O resection of large bowel (9) Intractable abdominal pain (10) Right corneal abrasion (11) Right shoulder pain (12) Shoulder pain, acute Surgical Problems: (1) Hx of resection of large bowel Family History Cancer Diabetes mellitus FH: heart disease Hypertension Lung disease Social History Smoking Status: Current Every Day Smoker Alcohol Use: occasionally Drug Use: none Marital Status: single Housing Status: lives with friends Occupation Status: unemployed Current/Historical Medications Scheduled Prednisone Tab (Prednisone), 10 MG PO TID Scheduled PRN Acetaminophen Tab (Tylenol), 650 MG PO DAILY PRN for Pain or Fever Oxycodone/Acetaminophen 5MG/325MG (Percocet 5MG/325MG), 1-2 TABLETS PO Q6 PRN for Pain Allergies Coded Allergies: Amoxicillin (Verified Allergy, Unknown, Unknown, 12/30/17) Reported by PT. Pt states allergy only to Amoxicillin. Physical Exam Vital Signs Date Time Temp Pulse Resp B/P (MAP) Pulse Ox O2 Delivery O2 Flow Rate FiO2 12/30/17 23:21 80 20 128/78 98 12/30/17 22:35 74 12/30/17 22:31 74 16 118/66 12/30/17 21:01 75 15 123/105 12/30/17 20:31 58 112/52 12/30/17 20:01 67 14 114/66 12/30/17 19:31 73 18 127/82 12/30/17 19:24 111/71 12/30/17 19:24 65 12/30/17 17:53 36.4 78 16 143/87 98 Room Air Physical Exam GENERAL: Awake, alert, well-appearing, in no acute distress HENT: Normocephalic, atraumatic. Oropharynx unremarkable. EYES: Normal conjunctiva. Sclera non-icteric. NECK: Supple. No nuchal rigidity. FROM. No JVD. RESPIRATORY: Clear to auscultation. CARDIAC: Regular rate, normal rhythm. Extremities warm and well perfused. Pulses equal. ABDOMEN: Soft, non-distended. Diffuse tenderness to palpation. No rebound or guarding. No masses. RECTAL: Deferred. MUSCULOSKELETAL: Chest examination reveals no tenderness. The back is symmetrical on inspection without obvious abnormality. There is no CVA tenderness to palpation. No joint edema. LOWER EXTREMITIES: Calves are equal size bilaterally and non-tender. No edema. No discoloration. NEURO: Normal sensorium. No sensory or motor deficits noted. SKIN: No rash or jaundice noted. Medical Decision & Procedures ER Provider Diagnostic Interpretation: Radiology results as stated below per my review and radiologist interpretation: ABD/PELVIS IV AND ORAL CONT CT DOSE: 316.36 mGy.cm HISTORY: Pain Pt c/o chrone's flair TECHNIQUE: Multiaxial CT images of the abdomen and pelvis were performed following the use of intravenous and oral contrast. A dose lowering technique was utilized adhering to the principles of ALARA. COMPARISON STUDY: 12/25/2017 FINDINGS: Minimal dependent basilar atelectasis. Liver spleen and pancreas enhance uniformly. Kidneys are unremarkable in appearance. Small right renal cyst unchanged. No evidence for hydronephrosis. There are several slightly distended and somewhat thickened loops of small bowel in the left central abdominal region. Within limitations these are similar compared to the prior study. Postoperative changes right lower quadrant are stable. Mild edematous change of the distal ileum appears to be similar. There is an additional loop of small bowel best seen transaxial image 236 demonstrate moderate wall thickening. This is also seen centrally in the transaxial image 266. Several reactive mesenteric nodes are similar to perhaps slightly increased. Bladder is midline. There is no free fluid within the pelvic cul-de-sac. IMPRESSION: 1. Multifocal areas of wall thickening of the small bowel consistent with inflammatory bowel change and/or Crohn's disease. 2. No evidence for abscess collection or obstruction. 3. Examination is generally similar compared to the prior study with the current study perhaps more sensitive to the multifocal distribution of findings due to the presence of oral contrast. The above report was generated using voice recognition software. It may contain grammatical, syntax or spelling errors. Electronically signed by: Obinna Talbert M.D. 12/30/2017 10:07 PM Dictated Date/Time: 12/30/2017 10:01 PM Laboratory Results 12/30/17 19:13 Red Blood Count 5.01, Mean Corpuscular Volume 91.0, Mean Corpuscular Hemoglobin 32.3, Mean Corpuscular Hemoglobin Concent 35.5, Mean Platelet Volume 9.9, Neutrophils (%) (Auto) 72.7, Lymphocytes (%) (Auto) 19.5, Monocytes (%) (Auto) 4.9, Eosinophils (%) (Auto) 2.2, Basophils (%) (Auto) 0.3, Neutrophils # (Auto) 8.12, Lymphocytes # (Auto) 2.18, Monocytes # (Auto) 0.55, Eosinophils # (Auto) 0.25, Basophils # (Auto) 0.03 12/30/17 19:13 Test 12/30/17 19:13 12/30/17 19:14 White Blood Count 11.17 K/uL (4.8-10.8) Red Blood Count 5.01 M/uL (4.7-6.1) Hemoglobin 16.2 g/dL (14.0-18.0) Hematocrit 45.6 % (42-52) Mean Corpuscular Volume 91.0 fL (80-100) Mean Corpuscular Hemoglobin 32.3 pg (25-34) Mean Corpuscular Hemoglobin Concent 35.5 g/dl (32-36) Platelet Count 241 K/uL (130-400) Mean Platelet Volume 9.9 fL (7.4-10.4) Neutrophils (%) (Auto) 72.7 % Lymphocytes (%) (Auto) 19.5 % Monocytes (%) (Auto) 4.9 % Eosinophils (%) (Auto) 2.2 % Basophils (%) (Auto) 0.3 % Neutrophils # (Auto) 8.12 K/uL (1.4-6.5) Lymphocytes # (Auto) 2.18 K/uL (1.2-3.4) Monocytes # (Auto) 0.55 K/uL (0.11-0.59) Eosinophils # (Auto) 0.25 K/uL (0-0.5) Basophils # (Auto) 0.03 K/uL (0-0.2) RDW Standard Deviation 43.9 fL (36.4-46.3) RDW Coefficient of Variation 13.4 % (11.5-14.5) Immature Granulocyte % (Auto) 0.4 % Immature Granulocyte # (Auto) 0.04 K/uL (0.00-0.02) Erythrocyte Sedimentation Rate 2 mm/hr (0-14) Anion Gap 3.0 mmol/L (3-11) Est Creatinine Clear Calc Drug Dose 128.6 ml/min Estimated GFR () 122.2 Estimated GFR (Non- 105.4 BUN/Creatinine Ratio 7.7 (10-20) Calcium Level 8.8 mg/dl (8.5-10.1) Total Bilirubin 0.4 mg/dl (0.2-1) Direct Bilirubin 0.1 mg/dl (0-0.2) Aspartate Amino Transf (AST/SGOT) 33 U/L (15-37) Alanine Aminotransferase (ALT/SGPT) 70 U/L (12-78) Alkaline Phosphatase 167 U/L (45-117) C-Reactive Protein < 0.29 mg/dl (0-0.29) Total Protein 7.4 gm/dl (6.4-8.2) Albumin 4.0 gm/dl (3.4-5.0) Lipase 109 U/L (73-393) Urine Color YELLOW Urine Appearance CLEAR (CLEAR) Urine pH 7.0 (4.5-7.5) Urine Specific [place] 1.014 (1.000-1.030) Urine Protein NEG (NEG) Urine Glucose (UA) NEG (NEG) Urine Ketones NEG (NEG) Urine Occult Blood NEG (NEG) Urine Nitrite NEG (NEG) Urine Bilirubin NEG (NEG) Urine Urobilinogen NEG (NEG) Urine Leukocyte Esterase NEG (NEG) Date/Time Source Procedure Growth Status 12/30/17 23:02 Stool C.difficile Toxin B Gene (PCR) - Final Positive for C. difficile toxin B gene Complete Labs reviewed by ED physician. Medications Administered Medications (Trade) Dose Ordered Sig/Ngoc Route Start Time Stop Time Status Last Admin Dose Admin Sodium Chloride 1,000 ml @ 999 mls/hr Q1H1M STAT IV 12/30/17 19:03 12/30/17 20:03 DC 12/30/17 19:29 999 MLS/HR Hydromorphone HCl (Dilaudid Inj) 1 mg NOW STAT IV 12/30/17 19:03 12/30/17 19:06 DC 12/30/17 19:29 1 MG Metoclopramide HCl (Reglan Inj) 10 mg NOW STAT IV. 12/30/17 19:03 12/30/17 19:06 DC 12/30/17 19:26 10 MG Hydromorphone HCl (Dilaudid Inj) 1 mg NOW STAT IV 12/30/17 22:48 12/30/17 22:49 DC 12/30/17 23:00 1 MG Oxycodone/ Acetaminophen (Percocet 5/ 325MG Home Pack) 1 homepack UD ONCE PO 12/30/17 23:00 12/30/17 23:01 DC 12/30/17 23:02 1 HOMEPACK ED Course 1901: Past medical records reviewed. The patient was evaluated in room A4B. A complete history and physical examination was performed. 1902: Ordered Reglan Inj 10 mg IV, Dilaudid Inj 1 mg IV, NSS 1000 ml @ 999 mls/ hr IV. 2235: I discussed the patient's case with Dr. Elliott SANTANA. He states that the patient should call the office in the morning. 2238: Upon reexamination the patient is doing okay. I discussed results and treatment plan with the patient. He verbalizes agreement and understanding. The patient is ready for discharge. 2247: Ordered Dilaudid Inj 1 mg IV. 2299: Ordered Oxycodone/ Acetaminophen 1 homepack PO. Medical Decision Etiologies such as appendicitis, diverticulitis, PUD, biliary pathology, UTI, pancreatitis, obstruction, mesenteric ischemia, aortic pathology, infections, inflammatory bowel disease, renal colic, as well as others were entertained. This is a 27-year-old male who presents the emergency department complaining of abdominal pain. The patient was sent for CAT scan of the abdomen and pelvis using oral contrast. The patient has a history of Crohn's disease. He is already on 60 mg of prednisone a day. He is a soft benign abdominal examination. The patient was given normal saline bolus as well as Dilaudid in the emergency department. I did discuss my findings with the GI specialist sole conforming machine operator who cannot get a hold of the patient's GI specialist. For this reason I enlisted case management to contact the patient's GI specialist in the morning. The patient also tested positive for C. difficile and will be placed on Flagyl 500 mg twice a day for 7 days until he can follow-up with GI. Patient was in agreement with treatment plan. Medication Reconcilliation Current Medication List: was personally reviewed by me Blood Pressure Screening Patient's blood pressure: Elevated blood pressure Blood pressure disposition: Elevated BP felt to be situational Consults Time Called: 2232 Consulting Physician: Dr. Elliott SANTANA Returned Call: 2235 I discussed the patient's case with Dr. Elliott SANTANA. He states that the patient should call the office in the morning. Impression Primary Impression: Acute Crohn's disease Scribe Attestation The scribe's documentation has been prepared under my direction and personally reviewed by me in its entirety. I confirm that the note above accurately reflects all work, treatment, procedures, and medical decision making performed by me. Departure Information Dispostion Home / Self-Care Prescriptions Oxycodone/Acetaminophen 5MG/325MG (PERCOCET 5MG/325MG) Tab 1-2 TABLETS PO Q6 Y for Pain, #14 TAB PAIN Prov: Waldo Bedolla MD 12/30/17 Referrals No Doctor, Assigned (PCP) Forms HOME CARE DOCUMENTATION FORM, IMPORTANT VISIT INFORMATION Patient Instructions My [facility] Additional Instructions Follow up with DR Fitch's office in the morning You received narcotic or benzodiazepene medication while in the emergency room today. This is an addictive medication that may cause drowziness as well as constipation. Do not drive, operate heavy machinery, or drink alcohol under the influence of this medication. Take 600 mg Ibuprofen every 6 hours Take Percocet for breakthrough pain You have been examined and treated today on an emergency basis only. This is not a substitute for, or an effort to provide, complete comprehensive medical care. It is impossible to recognize and treat all injuries or illnesses in a single emergency department visit. It is therefore important that you follow up closely with your PCP. Call as soon as possible for an appointment. Thank you for your time and consideration. I look forward to speaking with you again soon. Please don't hesitate to call us if you have any questions. Problem Qualifiers Primary Impression: Acute Crohn's disease Digestive disease complication type: unspecified complication Qualified Codes : K50.919 - Crohn's disease, unspecified, with unspecified complications
--- NOTE | 2017-12-30 22:08 | DIAGNOSTIC IMAGING REPORT ---
ABD/PELVIS IV AND ORAL CONT CT DOSE: 316.36 mGy.cm HISTORY: Pain Pt c/o chrone's flair TECHNIQUE: Multiaxial CT images of the abdomen and pelvis were performed following the use of intravenous and oral contrast. A dose lowering technique was utilized adhering to the principles of ALARA. COMPARISON STUDY: 12/25/2017 FINDINGS: Minimal dependent basilar atelectasis. Liver spleen and pancreas enhance uniformly. Kidneys are unremarkable in appearance. Small right renal cyst unchanged. No evidence for hydronephrosis. There are several slightly distended and somewhat thickened loops of small bowel in the left central abdominal region. Within limitations these are similar compared to the prior study. Postoperative changes right lower quadrant are stable. Mild edematous change of the distal ileum appears to be similar. There is an additional loop of small bowel best seen transaxial image 236 demonstrate moderate wall thickening. This is also seen centrally in the transaxial image 266. Several reactive mesenteric nodes are similar to perhaps slightly increased. Bladder is midline. There is no free fluid within the pelvic cul-de-sac. IMPRESSION: 1. Multifocal areas of wall thickening of the small bowel consistent with inflammatory bowel change and/or Crohn's disease. 2. No evidence for abscess collection or obstruction. 3. Examination is generally similar compared to the prior study with the current study perhaps more sensitive to the multifocal distribution of findings due to the presence of oral contrast. The above report was generated using voice recognition software. It may contain grammatical, syntax or spelling errors. Electronically signed by: Obinna Talbert M.D. 12/30/2017 10:07 PM Dictated Date/Time: 12/30/2017 10:01 PM
[2017-12-30] MEDS ORDERED: OXYC-57 PO (22:51)
[2017-12-30] MEDS ORDERED: PERCOCET HOME PACK PO ONE (23:00)
[2017-12-30 23:21] VITALS: BP 128/78; PULSE 80; O2SAT 98
--- NOTE | 2017-12-31 18:55 | Pharmacy Progress Note ---
ED Pharmacist Culture FollowUp Date of Service: Dec 31, 2017. C. diff positive. Per nurse discharge planner, attempted to contact patient @ 1030 this AM - no answer, no answering machine to leave message. I also tried @ 1700 - no answer, no answering machine to leave message. Left in follow-up folder at charge nurse desk.
== END 2017-12-30 23:22 | disposition home or self-care (01) ==
LOC: C.EDB 17:34 → C.EDA 23:22
DX: K50.919 Crohn's disease, unspecified, with unspecified complications (principal); Z80.9 Family history of malignant neoplasm, unspecified; Z83.3 Family history of diabetes mellitus; Z82.49 Family history of ischemic heart disease and other diseases of the circulatory system; Z83.6 Family history of other diseases of the respiratory system; F17.210 Nicotine dependence, cigarettes, uncomplicated

== ENCOUNTER 2018-01-14 12:42 | Emergency (ER) | payer OTHER ==
[~2018-01-14] VITALS: Ht 188 cm; Wt 78.4 kg
[~2018-01-14 12:42] MED LIST changes: +ACET-1693 PO; +OXYC-57 PO
[2018-01-14 12:46] VITALS: TEMP 36.4; Ht 188 cm; Wt 78.4 kg
[2018-01-14] MEDS ORDERED: SODIUM CHLORIDE 0.9% 1000ML 1,000 ML IV STA (13:32)
[2018-01-14] MEDS ORDERED: HYDROmorphone INJ 0.5 MG/0.5 ML SYR IV STA ×2 (13:39→16:18)
[2018-01-14] MEDS ORDERED: ONDANSETRON INJ 2 MG/ML 2 ML VIAL IV STA (13:39)
[2018-01-14 13:44] LABS: BASO % 0.4 %; BASO ABS # 0.04 K/uL (0-0.2); EOS % 1.9 %; EOS ABS # 0.17 K/uL (0-0.5); HEMATOCRIT 46.2 % (42-52); HEMOGLOBIN 16.7 g/dL (14.0-18.0); IG# 0.02 K/uL (0.00-0.02); LYMPH % 13.3 %; MEAN CELL VOLUME 90.1 fL (80-100); MEAN CORPUSCULAR HEMOGLOBIN 32.6 pg (25-34); MEAN CORPUSCULAR HGB CONC 36.1 g/dl (32-36); MEAN PLATELET VOLUME 10.6 fL (7.4-10.4); MONO % 5.6 %; MONO ABS # 0.51 K/uL (0.11-0.59); NEUT % 78.6 %; NEUT ABS # 7.09 K/uL (1.4-6.5); PLATELET COUNT 239 K/uL (130-400); RED CELL DISTRIBUTION WIDTH CV 13.1 % (11.5-14.5); RED CELL DISTRIBUTION WIDTH SD 42.8 fL (36.4-46.3); WHITE BLOOD COUNT 9.03 K/uL (4.8-10.8)
[2018-01-14 14:00] LABS: ALBUMIN 3.8 gm/dl (3.4-5.0); CALCIUM 8.7 mg/dl (8.5-10.1); CREATININE 1.02 mg/dl (0.60-1.40); POTASSIUM 3.8 mmol/L (3.5-5.1)
[2018-01-14 14:03] LABS: TOTAL PROTEIN 7.2 gm/dl (6.4-8.2)
[2018-01-14] MEDS ORDERED: OPTIRAY 320 IV PRN (14:30)
--- NOTE | 2018-01-14 14:59 | DIAGNOSTIC IMAGING REPORT ---
CT ANGIOGRAM OF THE CHEST CLINICAL HISTORY: Atypical chest pain. COMPARISON STUDY: Chest x-ray dated 12/25/2017. TECHNIQUE: Following the IV administration of 90 cc of Optiray 320, CT angiogram of the chest was performed from the upper abdomen to the thoracic inlet utilizing the pulmonary embolus protocol. Images are reviewed in the axial, sagittal, and coronal planes. 3-D MIPS images are created and assessed. IV contrast was administered without complication. A dose lowering technique was utilized adhering to the principles of ALARA. CT DOSE: 204.06 mGy.cm FINDINGS: Thyroid: Imaged portions of the thyroid gland are normal in size and attenuation. Thoracic aorta: The thoracic aorta is normal in caliber and demonstrates standard 3-vessel arch anatomy. No dissection is seen. Pulmonary vasculature: The pulmonary trunk is normal in caliber. There are no filling defects identified in main, lobar, or segmental pulmonary branches to suggest pulmonary embolus. Heart: The heart is normal in size and configuration, and without pericardial effusion. Lungs and pleural spaces: There is no airspace consolidation. Mild diffuse peribronchial thickening suggests reactive airway disease. The trachea and central airways are clear. Trace pleural effusions are identified. Mediastinum: There is no mediastinal lymphadenopathy. Estela: Clear. Axillae: There is no axillary lymphadenopathy. Upper abdomen: The spleen is mildly enlarged measuring 13.5 cm in length. Partially visualized upper abdominal viscera is otherwise within normal limits. Skeletal structures: No lytic or blastic bony lesions are seen. IMPRESSION: 1. There is no evidence of pulmonary embolus in the main, lobar, or segmental pulmonary arteries. 2. No airspace consolidation is identified. Mild diffuse peribronchial thickening suggests reactive airway disease. Clinical correlation will be required. 3. Trace pleural effusions are noted. Electronically signed by: Gordon Landry M.D. 01/14/2018 2:58 PM Dictated Date/Time: 01/14/2018 2:53 PM
--- NOTE | 2018-01-14 15:18 | DIAGNOSTIC IMAGING REPORT ---
PA CHEST RADIOGRAPH AND UPRIGHT AND SUPINE AP RADIOGRAPHS OF THE ABDOMEN CLINICAL HISTORY: abdominal pain, crohn's disease COMPARISON STUDY: CT of the abdomen and pelvis December 30, [address] performed earlier today FINDINGS: Lung volumes are normal. There is no consolidation or evidence of pulmonary edema. Cardiac size is normal. Mediastinal contours are normal. There is contrast within the collecting systems and ureters from recent contrast-enhanced CT. There is no free air. The bowel gas pattern is normal. Right lower quadrant surgical staple line is noted. IMPRESSION: 1. No free air or evidence of bowel obstruction. 2. No acute cardiopulmonary findings. Electronically signed by: Andrei Graham M.D. 01/14/2018 3:17 PM Dictated Date/Time: 01/14/2018 3:15 PM
[2018-01-14] MEDS ORDERED: METRONIDAZOLE 250 MG TAB PO STA (16:18)
[2018-01-14] MEDS ORDERED: SODIUM CHLORIDE 0.9% 500ML 500 ML IV STA (16:19)
[2018-01-14] MEDS ORDERED: OXYC1TAB3 PO (16:47)
[2018-01-14] MEDS ORDERED: PRD10 PO (16:47)
[2018-01-14] MEDS ORDERED: METR-163 PO (16:47)
--- NOTE | 2018-01-14 16:57 | EMERGENCY ROOM VISIT NOTE ---
History Report prepared by Rafia: Mikki Queen Under the Supervision of: Dr. Isma Franco M.D. First contact with patient: 13:32 Chief Complaint: ABDOMINAL PAIN Stated Complaint: ABDOMINAL PAIN, NAUSEA AND DIARREAH, HX OF CROHNS Nursing Triage Summary: triage note; pt reports hx of crohns. pt reports nausea, diarrhea, generalized abd pain. History of Present Illness The patient is a 27 year old male who presents to the Emergency Room with complaints of persistent abdominal pain starting several weeks ago. The patient has a history of Crohn's disease for the past 10 years. He had a CT recently which showed Crohn's. He followed up with GI. He is currently not on any medications. GI is considering starting him on a medication. He was on Prednisone for 5 days previously to some relief. He has been taking Advil for the pain to no significant relief. His pain does not feel different from his previous Crohn's flares. The pain is worst around his belly button. He reports nausea. She had sharp chest pain when he woke up this morning which lasted for 1 -2 hours. He has back pain which is normal for him. Pt denies LOC, headache, fevers, chills, diaphoresis, visual changes, neck pain, breathing difficulties, vomiting, melena, hematochezia, urinary symptoms, numbness, weakness, lymphadenopathy, rash, or other complaints. Source of History: patient Onset: several weeks ago Position: abdomen Quality: other (Crohn's pain) Timing: other (persistent) Modifying Factors (Relieving): other (prednisone) Associated Symptoms: + chest pain, + nausea Review of Systems See HPI for pertinent positives and negatives. A total of ten systems were reviewed and were otherwise negative. Past Medical & Surgical Medical Problems: (1) Abdominal pain (2) Abdominal pain (3) Abdominal pain (4) Crohns disease (5) Crohns disease (6) Crohns disease (7) Exacerbation of Crohn's disease (8) H/O resection of large bowel (9) Intractable abdominal pain (10) Right corneal abrasion (11) Right shoulder pain (12) Shoulder pain, acute Surgical Problems: (1) Hx of resection of large bowel Family History Cancer Diabetes mellitus FH: heart disease Hypertension Lung disease Social History Smoking Status: Current Every Day Smoker Alcohol Use: occasionally Drug Use: none Marital Status: single Housing Status: lives with friends Occupation Status: unemployed Current/Historical Medications Scheduled Metronidazole (Flagyl), 500 MG PO TID Prednisone (Prednisone), 30 MG PO DAILY Scheduled PRN Oxycodone Ir (Roxicodone Ir), 1-2 TAB PO Q4H PRN for Pain Allergies Coded Allergies: Amoxicillin (Verified Allergy, Unknown, Unknown, 01/14/18) Reported by PT. Pt states allergy only to Amoxicillin. Physical Exam Vital Signs Date Time Temp Pulse Resp B/P (MAP) Pulse Ox O2 Delivery O2 Flow Rate FiO2 01/14/18 15:57 61 95/52 97 Room Air 01/14/18 14:20 66 01/14/18 14:11 64 22 120/69 97 Room Air 01/14/18 12:46 36.4 88 18 134/77 97 Room Air Physical Exam GENERAL: Awake, alert, well-appearing, in no distress HENT: Normocephalic, atraumatic. Oropharynx unremarkable. EYES: Normal conjunctiva. Sclera non-icteric. NECK: Supple. No nuchal rigidity. FROM. No masses. RESPIRATORY: Clear to auscultation. No wheezes. No rales. Normal respiratory effort. CARDIAC: Normal rate. Normal rhythm. No murmurs. No rubs. Extremities warm and well perfused. Pulses equal. No JVD. GI: Soft, non-distended. Periumbilical tenderness to palpation. No rebound or guarding. No masses. RECTAL: Deferred. MUSCULOSKELETAL: Atraumatic. Chest examination reveals no tenderness. The back is symmetrical on inspection without obvious abnormality. There is no CVA tenderness to palpation. No joint edema. LOWER EXTREMITIES: Calves are equal size bilaterally and non-tender. No edema. No discoloration. NEURO: Normal sensorium. No sensory or motor deficits noted. SKIN: No rash or jaundice noted. Medical Decision & Procedures ER Provider Diagnostic Interpretation: Radiology results as stated below per my review and radiologist interpretation: CT ANGIOGRAM OF THE CHEST CLINICAL HISTORY: Atypical chest pain. COMPARISON STUDY: Chest x-ray dated 12/25/2017. TECHNIQUE: Following the IV administration of 90 cc of Optiray 320, CT angiogram of the chest was performed from the upper abdomen to the thoracic inlet utilizing the pulmonary embolus protocol. Images are reviewed in the axial, sagittal, and coronal planes. 3-D MIPS images are created and assessed. IV contrast was administered without complication. A dose lowering technique was utilized adhering to the principles of ALARA. CT DOSE: 204.06 mGy.cm FINDINGS: Thyroid: Imaged portions of the thyroid gland are normal in size and attenuation. Thoracic aorta: The thoracic aorta is normal in caliber and demonstrates standard 3-vessel arch anatomy. No dissection is seen. Pulmonary vasculature: The pulmonary trunk is normal in caliber. There are no filling defects identified in main, lobar, or segmental pulmonary branches to suggest pulmonary embolus. Heart: The heart is normal in size and configuration, and without pericardial effusion. Lungs and pleural spaces: There is no airspace consolidation. Mild diffuse peribronchial thickening suggests reactive airway disease. The trachea and central airways are clear. Trace pleural effusions are identified. Mediastinum: There is no mediastinal lymphadenopathy. Estela: Clear. Axillae: There is no axillary lymphadenopathy. Upper abdomen: The spleen is mildly enlarged measuring 13.5 cm in length. Partially visualized upper abdominal viscera is otherwise within normal limits. Skeletal structures: No lytic or blastic bony lesions are seen. IMPRESSION: 1. There is no evidence of pulmonary embolus in the main, lobar, or segmental pulmonary arteries. 2. No airspace consolidation is identified. Mild diffuse peribronchial thickening suggests reactive airway disease. Clinical correlation will be required. 3. Trace pleural effusions are noted. Electronically signed by: Gordon Landry M.D. 01/14/2018 2:58 PM Dictated Date/Time: 01/14/2018 2:53 PM PA CHEST RADIOGRAPH AND UPRIGHT AND SUPINE AP RADIOGRAPHS OF THE ABDOMEN CLINICAL HISTORY: abdominal pain, crohn's disease COMPARISON STUDY: CT of the abdomen and pelvis December 30, [address] performed earlier today FINDINGS: Lung volumes are normal. There is no consolidation or evidence of pulmonary edema. Cardiac size is normal. Mediastinal contours are normal. There is contrast within the collecting systems and ureters from recent contrast-enhanced CT. There is no free air. The bowel gas pattern is normal. Right lower quadrant surgical staple line is noted. IMPRESSION: 1. No free air or evidence of bowel obstruction. 2. No acute cardiopulmonary findings. Electronically signed by: Andrei Graham M.D. 01/14/2018 3:17 PM Dictated Date/Time: 01/14/2018 3:15 PM Laboratory Results 01/14/18 13:25 Red Blood Count 5.13, Mean Corpuscular Volume 90.1, Mean Corpuscular Hemoglobin 32.6, Mean Corpuscular Hemoglobin Concent 36.1, Mean Platelet Volume 10.6, Neutrophils (%) (Auto) 78.6, Lymphocytes (%) (Auto) 13.3, Monocytes (%) (Auto) 5.6, Eosinophils (%) (Auto) 1.9, Basophils (%) (Auto) 0.4, Neutrophils # (Auto) 7.09, Lymphocytes # (Auto) 1.20, Monocytes # (Auto) 0.51, Eosinophils # (Auto) 0.17, Basophils # (Auto) 0.04 01/14/18 13:25 Test 01/14/18 13:25 01/14/18 13:51 01/14/18 13:56 White Blood Count 9.03 K/uL (4.8-10.8) Red Blood Count 5.13 M/uL (4.7-6.1) Hemoglobin 16.7 g/dL (14.0-18.0) Hematocrit 46.2 % (42-52) Mean Corpuscular Volume 90.1 fL (80-100) Mean Corpuscular Hemoglobin 32.6 pg (25-34) Mean Corpuscular Hemoglobin Concent 36.1 g/dl (32-36) Platelet Count 239 K/uL (130-400) Mean Platelet Volume 10.6 fL (7.4-10.4) Neutrophils (%) (Auto) 78.6 % Lymphocytes (%) (Auto) 13.3 % Monocytes (%) (Auto) 5.6 % Eosinophils (%) (Auto) 1.9 % Basophils (%) (Auto) 0.4 % Neutrophils # (Auto) 7.09 K/uL (1.4-6.5) Lymphocytes # (Auto) 1.20 K/uL (1.2-3.4) Monocytes # (Auto) 0.51 K/uL (0.11-0.59) Eosinophils # (Auto) 0.17 K/uL (0-0.5) Basophils # (Auto) 0.04 K/uL (0-0.2) RDW Standard Deviation 42.8 fL (36.4-46.3) RDW Coefficient of Variation 13.1 % (11.5-14.5) Immature Granulocyte % (Auto) 0.2 % Immature Granulocyte # (Auto) 0.02 K/uL (0.00-0.02) Anion Gap 5.0 mmol/L (3-11) Est Creatinine Clear Calc Drug Dose 122.8 ml/min Estimated GFR () 117.9 Estimated GFR (Non- 101.7 BUN/Creatinine Ratio 11.0 (10-20) Calcium Level 8.7 mg/dl (8.5-10.1) Total Bilirubin 0.9 mg/dl (0.2-1) Direct Bilirubin 0.2 mg/dl (0-0.2) Aspartate Amino Transf (AST/SGOT) 16 U/L (15-37) Alanine Aminotransferase (ALT/SGPT) 36 U/L (12-78) Alkaline Phosphatase 154 U/L (45-117) Total Protein 7.2 gm/dl (6.4-8.2) Albumin 3.8 gm/dl (3.4-5.0) Lipase 82 U/L (73-393) Bedside D-Dimer > 450 ng/mlFEU (0-450) Urine Color YELLOW Urine Appearance CLEAR (CLEAR) Urine pH 5.5 (4.5-7.5) Urine Specific Slick 1.015 (1.000-1.030) Urine Protein NEG (NEG) Urine Glucose (UA) NEG (NEG) Urine Ketones NEG (NEG) Urine Occult Blood NEG (NEG) Urine Nitrite NEG (NEG) Urine Bilirubin NEG (NEG) Urine Urobilinogen NEG (NEG) Urine Leukocyte Esterase NEG (NEG) Laboratory results reviewed by me Medications Administered Medications (Trade) Dose Ordered Sig/Ngoc Route Start Time Stop Time Status Last Admin Dose Admin Sodium Chloride 1,000 ml @ 999 mls/hr Q1H1M STAT IV 01/14/18 13:32 01/14/18 14:32 DC 01/14/18 14:07 999 MLS/HR Hydromorphone HCl (Dilaudid Inj) 0.5 mg NOW STAT IV 01/14/18 13:39 01/14/18 13:41 DC 01/14/18 14:02 0.5 MG Ondansetron HCl (Zofran Inj) 4 mg NOW STAT IV 01/14/18 13:39 01/14/18 13:41 DC 01/14/18 14:02 4 MG Prednisone (PredniSONE TAB) 20 mg NOW STAT PO 01/14/18 16:18 01/14/18 16:19 DC 01/14/18 16:28 20 MG Prednisone (PredniSONE TAB) 10 mg NOW ONCE PO 01/14/18 16:30 01/14/18 16:31 DC 01/14/18 16:29 10 MG Metronidazole (Flagyl Tab) 500 mg NOW STAT PO 01/14/18 16:18 01/14/18 16:19 DC 01/14/18 16:28 500 MG Hydromorphone HCl (Dilaudid Inj) 0.5 mg NOW STAT IV 01/14/18 16:18 01/14/18 16:19 DC 01/14/18 16:30 0.5 MG Sodium Chloride 500 ml @ 999 mls/hr Q31M STAT IV 01/14/18 16:19 01/14/18 16:49 01/14/18 16:28 999 MLS/HR ECG Per My Interpretation Indication: chest pain Rate (beats per minute): 78 Rhythm: normal sinus Findings: no acute ischemic change, no ectopy, other (no pericarditis) ED Course 1332: NSS 1000 ml @ 999 mls/hr IV. 1336: The patient was evaluated in room A8. A complete history and physical exam was performed. 1339: Zofran Inj 4 mg IV, Dilaudid Inj 0.5 mg IV. 1525: Consulted with gastroenterology. 1605: Call return from gastrology, discussed with Dr. newton. Recommended symptomatic treatment, prednisone, treatment for C. difficile, and following up Wednesday in the office. 1615: Reassessed the patient and he is doing well. An additional dose of pain medication and saline given. Clinically looks well. First dose of Flagyl and prednisone given in the ER. Return instructions outlined. Patient discharged. Medical Decision Prior records/ancillary studies reviewed. The patient had [address] scans which confirmed Crohn's disease. He was also found to have C. difficile infection. The ER attempted to contact the patient twice but he was unreachable. The patient states he has not been treated for this. Triage Nursing notes reviewed and agree them. The patient's history was concerning for abdominal pain. Differential diagnosis: Etiologies such as inflammatory bowel disease, enteritis, C. difficile infection , appendicitis, diverticulitis, PUD, biliary pathology, UTI, pancreatitis, obstruction, mesenteric ischemia, aortic pathology, infections, renal colic, as well as others were entertained. Physical examination findings: As above. Benign abdomen. ER treatment provided: IV Dilaudid, IV normal saline On reassessment the patient felt better. Additional IV Dilaudid Oral metronidazole Prednisone Diagnostics interpreted by me: ECG: Normal The labs revealed an unremarkable CBC and chemistry panel. D-dimer borderline. Urinalysis negative. Imaging studies: X-rays and CT scan as above. Consultation: A consultation was placed with the [facility] histologist on-call, Dr. newton. The case was discussed and diagnostics were reviewed. He recommended prednisone, Flagyl, and symptomatic treatment with close follow-up. This is the most consistent with an inflammatory bowel disease constipation and C. difficile infection. By the evaluation outlined above emergent etiologies such as appendicitis, diverticulitis, PUD, biliary pathology, UTI, pancreatitis, obstruction, mesenteric ischemia, aortic pathology, infections, renal colic, as well as others were deemed relatively unlikely. The patient was informed about the findings as listed above. All questions were answered and he was pleased with the treatment. Return instructions were outlined and the patient was discharged in stable condition. Outpatient prescription management: Oxy IR 5mg 1-2 po Q4 hrs prn Flagyl Prednisone. Referral: The patient was referred back to their GI clinic next week for a recheck of the current condition. Medication Reconcilliation Current Medication List: was personally reviewed by me Blood Pressure Screening Patient's blood pressure: Normal blood pressure Blood pressure disposition: Did not require urgent referral Impression Primary Impression: Exacerbation of Crohn's disease Additional Impression: C. difficile enteritis Scribe Attestation The scribe's documentation has been prepared under my direction and personally reviewed by me in its entirety. I confirm that the note above accurately reflects all work, treatment, procedures, and medical decision making performed by me. Departure Information Dispostion Home / Self-Care Prescriptions Oxycodone Ir (Roxicodone Ir) 5 Mg Tab 1-2 TAB PO Q4H Y for Pain, #15 TAB Prov: Isma Franco MD 01/14/18 Prednisone (Prednisone) 10 Mg Tab 30 MG PO DAILY for 5 Days, #15 TAB Prov: Isma Franco MD 01/14/18 Metronidazole (Flagyl) 500 Mg Tab 500 MG PO TID, #29 TAB Prov: Isma Franco MD 01/14/18 Referrals No Doctor, Assigned (PCP) Patient Instructions My [facility] Additional Instructions ABDOMINAL PAIN INSTRUCTIONS: DO NOT drive, drink alcohol, operate machinery, or perform dangerous activities today. You were given medications in the ER that can affect your ability to safely function or operate a vehicle. Prednisone 30 mg: Once daily until the prescription is finished. Metronidazole 500 mg 3 times daily for the C. difficile infection. He will take this for 10 days. Do not drink alcohol with this medication. Oxycodone (OxyIR) 5mg: Take 1-2 pills every four hours for breakthrough pain. Avoid alcohol, operating machinery or dangerous equipment, working on ladders or roofs, DRIVING, or situations where being under the influence may be dangerous. It is recommended to use an [id number] stool softener such as Colace, 100mg twice daily while taking this medication to avoid constipation. Acetaminophen(Tylenol) may be used for fever or pain. Use 1000mg every six hours as needed. Avoid using more than 4000mg in a 24 hour period. Rest and drink plenty of fluids as tolerated. Slow sips of water or sports drinks are recommended instead of large amounts all at once. Once your stomach is settled start with a clear liquid diet (jello, soup broth, etc.) and then advance as tolerated. You should avoid full, heavy meals for about 24 hrs from the time your symptoms resolved. Return to the ER immediately for worsening or persistent abdominal pain, vomiting, fevers, chest pains, difficulty breathing, black or bloody stools, worsening of your condition, or as needed. Follow up with your GI office on Wednesday for a recheck of your current condition. Problem Qualifiers
[2018-01-14 17:08] VITALS: BP 102/56; PULSE 65; O2SAT 97
== END 2018-01-14 17:10 | disposition home or self-care (01) ==
LOC: C.EDB 12:45 → C.EDA 17:10
DX: K50.90 Crohn's disease, unspecified, without complications (principal); A04.72 Enterocolitis due to Clostridium difficile, not specified as recurrent; R07.9 Chest pain, unspecified; F17.200 Nicotine dependence, unspecified, uncomplicated; Z90.49 Acquired absence of other specified parts of digestive tract; Z88.0 Allergy status to penicillin; Z83.3 Family history of diabetes mellitus; Z82.49 Family history of ischemic heart disease and other diseases of the circulatory system; Z83.6 Family history of other diseases of the respiratory system

== ENCOUNTER 2018-05-17 09:38 | Emergency (ER) | payer SELFPAY ==
[~2018-05-17] VITALS: Ht 188 cm; Wt 81.4 kg
[2018-05-17 09:47] VITALS: TEMP 36.3; Ht 188 cm; Wt 81.4 kg
[2018-05-17] MEDS ORDERED: ONDANSETRON INJ 2 MG/ML 2 ML VIAL IV STA (10:03)
[2018-05-17] MEDS ORDERED: KETOROLAC TROMETHAMINE 30 MG/ML VIAL IV STA (10:03)
--- NOTE | 2018-05-17 10:11 | EMERGENCY ROOM VISIT NOTE ---
History Report prepared by Rafia: Conrad Phan Under the Supervision of: Dr. Jayant Mcgee M.D. First contact with patient: 09:53 Chief Complaint: ABDOMINAL PAIN Stated Complaint: ABD PAIN,NAUSEA,BLOOD IN STOOL, HX OF CROHNS Nursing Triage Summary: pt reports bilat abd pain started approx 1 month ago. feels nauseated and vomiting alittle bity of blood has blood in stool also. has hx of crohns History of Present Illness The patient is a 27 year old male with a past medical history of abdominal pain, Crohn's disease, resection of large bowel, right corneal abrasion, and right shoulder pain who presents to the ED with a cc of episodic abdominal pain beginning two days ago. The patient describes the pain as a sharp , crampy pain that radiates across his abdomen. He states that the pain was waxing and waning since two days ago and that Tylenol does not help. The patient reports that he was seen on April 28 in [place] for his Crohn's disease. He reports that his last bowel movement was this morning and that hematochezia started at 3-4am yesterday morning. He states that his last flair that resulted in hospitalization occurred 2-3 years ago. He reports that he currently takes Lialea and has not recent changes. Positive melena, hematochezia , Crohn's disease. Negative for changes in medications. Source of History: patient Onset: 2 days ago Position: abdomen Quality: sharp, cramping Timing: other (Episodic) Associated Symptoms: + melena, + hematochezia Review of Systems See HPI for pertinent positives and negatives. A total of ten systems were reviewed and were otherwise negative. Past Medical & Surgical Medical Problems: (1) Abdominal pain (2) Abdominal pain (3) Abdominal pain (4) Crohns disease (5) Crohns disease (6) Crohns disease (7) Exacerbation of Crohn's disease (8) H/O resection of large bowel (9) Intractable abdominal pain (10) Right corneal abrasion (11) Right shoulder pain (12) Shoulder pain, acute Surgical Problems: (1) Hx of resection of large bowel Family History Cancer Diabetes mellitus FH: heart disease Hypertension Lung disease Social History Smoking Status: Current Every Day Smoker Alcohol Use: none Drug Use: none Marital Status: single Housing Status: lives with friends Occupation Status: employed Current/Historical Medications Scheduled Dicyclomine Hcl (Bentyl), 10 MG PO TID Lurasidone Hcl (Latuda), 1 DOSE PO HS Mesalamine (Lialda), 2 TAB PO HS Allergies Coded Allergies: Amoxicillin (Verified Allergy, Unknown, Unknown, 05/18/18) Reported by PT. Pt states allergy only to Amoxicillin. Physical Exam Vital Signs Date Time Temp Pulse Resp B/P (MAP) Pulse Ox O2 Delivery O2 Flow Rate FiO2 05/17/18 12:10 53 18 130/68 98 05/17/18 11:02 55 16 106/62 98 Room Air 05/17/18 10:21 50 05/17/18 09:47 36.3 63 18 126/74 96 Room Air Physical Exam GENERAL: Awake, alert, well-appearing, NAD, wearing glasses HENT: Normocephalic, atraumatic. EYES: Normal conjunctiva. Sclera non-icteric. PERRL. No anisocoria. NECK: Supple. No nuchal rigidity. FROM. RESPIRATORY: CTAB, no rhonchi, wheezing, crackles CARDIAC: RRR, no MRG ABDOMEN: Soft, NTND, BS+, Mild epigastric discomfort not peritonitic MSK: No chest wall TTP, no LE edema NEURO: GCS 15, CN 2-12 intact, moves all 4s on command SKIN: No rash or jaundice noted. Medical Decision & Procedures ER Provider Diagnostic Interpretation: Radiology results as stated below per my review and radiologist interpretation: KUB CLINICAL HISTORY: Abdominal pain. Blood in stool. History of Crohn's disease. COMPARISON STUDY: CT of the abdomen and pelvis March 29, 2018 and KUB April 28, 2018. FINDINGS: Pelvic calcifications reflect phleboliths. A right sided bowel anastomosis is noted. The bowel gas pattern is normal. There is no evidence for a bowel obstruction. IMPRESSION: No evidence for a bowel obstruction. Electronically signed by: Andrei Graham M.D. 05/17/2018 10:39 AM Dictated Date/Time: 05/17/2018 10:38 AM Laboratory Results 05/17/18 10:15 Red Blood Count 4.89, Mean Corpuscular Volume 90.6, Mean Corpuscular Hemoglobin 31.9, Mean Corpuscular Hemoglobin Concent 35.2, Mean Platelet Volume 10.3, Neutrophils (%) (Auto) 70.4, Lymphocytes (%) (Auto) 19.5, Monocytes (%) (Auto) 5.7, Eosinophils (%) (Auto) 3.9, Basophils (%) (Auto) 0.3, Neutrophils # (Auto) 7.10, Lymphocytes # (Auto) 1.97, Monocytes # (Auto) 0.57, Eosinophils # (Auto) 0.39, Basophils # (Auto) 0.03 05/17/18 10:15 Test 05/17/18 10:15 05/17/18 10:30 White Blood Count 10.08 K/uL (4.8-10.8) Red Blood Count 4.89 M/uL (4.7-6.1) Hemoglobin 15.6 g/dL (14.0-18.0) Hematocrit 44.3 % (42-52) Mean Corpuscular Volume 90.6 fL (80-100) Mean Corpuscular Hemoglobin 31.9 pg (25-34) Mean Corpuscular Hemoglobin Concent 35.2 g/dl (32-36) Platelet Count 234 K/uL (130-400) Mean Platelet Volume 10.3 fL (7.4-10.4) Neutrophils (%) (Auto) 70.4 % Lymphocytes (%) (Auto) 19.5 % Monocytes (%) (Auto) 5.7 % Eosinophils (%) (Auto) 3.9 % Basophils (%) (Auto) 0.3 % Neutrophils # (Auto) 7.10 K/uL (1.4-6.5) Lymphocytes # (Auto) 1.97 K/uL (1.2-3.4) Monocytes # (Auto) 0.57 K/uL (0.11-0.59) Eosinophils # (Auto) 0.39 K/uL (0-0.5) Basophils # (Auto) 0.03 K/uL (0-0.2) RDW Standard Deviation 42.9 fL (36.4-46.3) RDW Coefficient of Variation 13.0 % (11.5-14.5) Immature Granulocyte % (Auto) 0.2 % Immature Granulocyte # (Auto) 0.02 K/uL (0.00-0.02) Anion Gap 6.0 mmol/L (3-11) Est Creatinine Clear Calc Drug Dose 138.3 ml/min Estimated GFR () 130.1 Estimated GFR (Non- 112.2 BUN/Creatinine Ratio 9.3 (10-20) Calcium Level 8.6 mg/dl (8.5-10.1) Total Bilirubin 0.8 mg/dl (0.2-1) Direct Bilirubin 0.2 mg/dl (0-0.2) Aspartate Amino Transf (AST/SGOT) 14 U/L (15-37) Alanine Aminotransferase (ALT/SGPT) 33 U/L (12-78) Alkaline Phosphatase 140 U/L (45-117) Total Protein 7.2 gm/dl (6.4-8.2) Albumin 4.0 gm/dl (3.4-5.0) Lipase 70 U/L (73-393) Urine Color DK YELLOW Urine Appearance CLEAR (CLEAR) Urine pH 6.0 (4.5-7.5) Urine Specific Allen 1.033 (1.000-1.030) Urine Protein NEG (NEG) Urine Glucose (UA) NEG (NEG) Urine Ketones TRACE (NEG) Urine Occult Blood NEG (NEG) Urine Nitrite NEG (NEG) Urine Bilirubin NEG (NEG) Urine Urobilinogen NEG (NEG) Urine Leukocyte Esterase NEG (NEG) Laboratory results reviewed by me Medications Administered Medications (Trade) Dose Ordered Sig/Ngoc Route Start Time Stop Time Status Last Admin Dose Admin Ondansetron HCl (Zofran Inj) 4 mg NOW STAT IV 05/17/18 10:03 05/17/18 10:05 DC 05/17/18 10:14 4 MG Ketorolac Tromethamine (Toradol Inj) 30 mg NOW STAT IV 05/17/18 10:03 05/17/18 10:05 DC 05/17/18 10:15 30 MG Dicyclomine HCl (Bentyl Cap) 20 mg NOW ONCE PO 05/17/18 10:15 05/17/18 10:16 DC 05/17/18 10:14 20 MG Morphine Sulfate (MoRPHine SULFATE INJ) 4 mg NOW STAT IV 05/17/18 11:22 05/17/18 11:24 DC 05/17/18 11:33 4 MG Lidocaine HCl (Viscous Lidocaine 2% Soln) 20 ml STK-MED ONCE .ROUTE 05/17/18 11:31 05/17/18 11:32 DC 05/17/18 11:34 20 ML Al Hydroxide/Mg Hydroxide (Maalox Susp) 30 ml STK-MED ONCE .ROUTE 05/17/18 11:31 05/17/18 11:32 DC 05/17/18 11:34 30 ML ED Course 0955: The patient was evaluated in room C2B. A complete history and physical exam was performed. 1117: I reevaluated the patient and he said he still is not feeling great. 1153: I checked on the patient and answered any questions before he leaves. 1155: I reevaluated the patient. Discussed results and discharge instructions: He verbalized understanding and agreement. The patient is ready for discharge. Medical Decision Nursing notes reviewed. Ancillary studies and prior records reviewed. The patient is a 27 year old male with a past medical history of abdominal pain, Crohn's disease, resection of large bowel, right corneal abrasion, and right shoulder pain who presents to the ED with a cc of episodic abdominal pain beginning two days ago. Differential diagnosis: Etiologies such as appendicitis, diverticulitis, PUD, biliary pathology, UTI, pancreatitis, obstruction, mesenteric ischemia, aortic pathology, infections, inflammatory bowel disease, renal colic, as well as others were entertained. Patient was seen and evaluated the bedside. The patient has been complaining of intermittent abdominal pain ongoing 2 months. The patient states it was acutely worse last evening. Patient has noticed scant blood in the stool. Patient does follow with a local yarn wrapper but is trying to establish care in [facility]. Patient states he took Tylenol which did not relieve his pain. Patient did have blood work completed along with a KUB. Patient's vital signs are stable and the patient's abdominal exam was not very remarkable. Patient's blood work is very unremarkable. White blood cell count within normal limits. Patient's hemoglobin is appropriate. Platelet count normal. Patient has normal kidney functionality and lipase. Upon reassessment the patient was not feeling much improved with the patient again looked well and the patient did not have a concerning abdominal exam. I do not believe the patient requires a more advanced imaging at this time. Patient was given an additional round of medication. The patient was also given some Bentyl as an outpatient. Patient was deemed suitable for outpatient follow-up and treatment at this time. Patient was given strict follow-up, discharge, and return precautions. All questions were answered. Patient was deemed suitable for outpatient follow-up at this time. Patient agreed with the plan of care and was safely discharged home. Medication Reconcilliation Current Medication List: was personally reviewed by me Blood Pressure Screening Patient's blood pressure: Normal blood pressure Impression Primary Impression: Abdominal pain Additional Impression: Encounter for smoking cessation counseling Scribe Attestation The scribe's documentation has been prepared under my direction and personally reviewed by me in its entirety. I confirm that the note above accurately reflects all work, treatment, procedures, and medical decision making performed by me. Departure Information Dispostion Home / Self-Care Referrals No Doctor, Assigned (PCP) Forms HOME CARE DOCUMENTATION FORM, IMPORTANT VISIT INFORMATION Patient Instructions Abdominal Pain, My [facility] Additional Instructions Please return to the emergency department if you have worsening or recurrent symptoms not amenable to at-home treatment. Please call for a follow-up appointment with her primary care physician. Please take your medications as prescribed. If you have other concerns and/or complaints please feel free to also call your primary care physician's office or return the ED for further evaluation, management, and treatment. You received narcotic or benzodiazepene medication while in the emergency room today. This is an addictive medication that may cause drowziness as well as constipation. Do not drive, operate heavy machinery, or drink alcohol under the influence of this medication. You may take 600 mg Ibuprofen every 6 hours as needed for pain/fever with food unless told by your physician not to take NSAIDs. You may take tylenol 650 mg every 6 hours as needed for pain/fever unless told by your physician to not take it or have liver problems. You may take motrin and tylenol separately or at the same time. Take your medications as prescribed. You have been examined and treated today on an emergency basis only. This is not a substitute for, or an effort to provide, complete comprehensive medical care. It is impossible to recognize and treat all injuries or illnesses in a single emergency department visit. It is therefore important that you follow up closely with [facility], your PCP, and/or your specialist(s). Call as soon as possible for an appointment. Thank you for your time and consideration. I look forward to speaking with you again soon. Please don't hesitate to call us if you have any questions. Problem Qualifiers Primary Impression: Abdominal pain Abdominal location: epigastric Qualified Codes: R10.13 - Epigastric pain
[2018-05-17] MEDS ORDERED: DICYCLOMINE HCL 10 MG CAP PO ONE (10:15)
[2018-05-17 10:22] LABS: BASO % 0.3 %; BASO ABS # 0.03 K/uL (0-0.2); EOS % 3.9 %; EOS ABS # 0.39 K/uL (0-0.5); HEMATOCRIT 44.3 % (42-52); HEMOGLOBIN 15.6 g/dL (14.0-18.0); IG# 0.02 K/uL (0.00-0.02); LYMPH % 19.5 %; LYMPH ABS # 1.97 K/uL (1.2-3.4); MEAN CELL VOLUME 90.6 fL (80-100); MEAN CORPUSCULAR HEMOGLOBIN 31.9 pg (25-34); MEAN CORPUSCULAR HGB CONC 35.2 g/dl (32-36); MEAN PLATELET VOLUME 10.3 fL (7.4-10.4); MONO % 5.7 %; MONO ABS # 0.57 K/uL (0.11-0.59); NEUT % 70.4 %; PLATELET COUNT 234 K/uL (130-400); RED CELL DISTRIBUTION WIDTH SD 42.9 fL (36.4-46.3); WHITE BLOOD COUNT 10.08 K/uL (4.8-10.8)
--- NOTE | 2018-05-17 10:40 | DIAGNOSTIC IMAGING REPORT ---
KUB CLINICAL HISTORY: Abdominal pain. Blood in stool. History of Crohn's disease. COMPARISON STUDY: CT of the abdomen and pelvis March 29, 2018 and KUB April 28, 2018. FINDINGS: Pelvic calcifications reflect phleboliths. A right sided bowel anastomosis is noted. The bowel gas pattern is normal. There is no evidence for a bowel obstruction. IMPRESSION: No evidence for a bowel obstruction. Electronically signed by: Andrei Graham M.D. 05/17/2018 10:39 AM Dictated Date/Time: 05/17/2018 10:38 AM
[2018-05-17 10:41] LABS: CALCIUM 8.6 mg/dl (8.5-10.1); CREATININE 0.94 mg/dl (0.60-1.40); POTASSIUM 3.8 mmol/L (3.5-5.1); TOTAL PROTEIN 7.2 gm/dl (6.4-8.2)
[2018-05-17] MEDS ORDERED: LURA40TA PO (11:05)
[2018-05-17] MEDS ORDERED: MoRPHine SULFATE 4 MG/ML 1 ML CARP\\VIAL IV STA (11:22)
[2018-05-17] MEDS ORDERED: GI COCKTAIL PO STA (11:22)
[2018-05-17] MEDS ORDERED: LIDOCAINE HCL 2% VISC SOLN 20 ML UDC ONE (11:31)
[2018-05-17] MEDS ORDERED: ALUMINUM/MAGNESIUM SUSP 30 ML UDC ONE (11:31)
[2018-05-17] MEDS ORDERED: DICY10CA55 PO (11:47)
[2018-05-17 12:10] VITALS: BP 130/68; PULSE 53; O2SAT 98
[2018-05-18] MEDS ORDERED: MESA1.2T PO (09:29)
[2018-05-18] MEDS ORDERED: DICY10CA55 PO (09:29)
== END 2018-05-17 12:11 | disposition home or self-care (01) ==
LOC: C.EDB 09:41 → C.EDC 12:11
DX: R10.13 Epigastric pain (principal); K50.90 Crohn's disease, unspecified, without complications; F17.200 Nicotine dependence, unspecified, uncomplicated; Z88.8 Allergy status to other drugs, medicaments and biological substances; Z79.899 Other long term (current) drug therapy

== ENCOUNTER 2018-05-18 09:03 | Emergency (ER) | payer SELFPAY ==
[~2018-05-18] VITALS: Ht 188 cm; Wt 81.6 kg
[~2018-05-18 09:03] MED LIST changes: -ACET-1693 PO; +DICY10CA55 PO; +LURA40TA PO; -OXYC-57 PO; -PRED10TA PO
[2018-05-18 09:08] VITALS: TEMP 36.6; Ht 188 cm; Wt 81.6 kg
[2018-05-18] MEDS ORDERED: DICY10CA55 PO (09:29)
[2018-05-18] MEDS ORDERED: MESA1.2T PO (09:29)
[2018-05-18] MEDS ORDERED: SODIUM CHLORIDE 0.9% 1000ML 1,000 ML IV STA (09:54)
[2018-05-18] MEDS ORDERED: ONDANSETRON INJ 2 MG/ML 2 ML VIAL IV STA (09:54)
[2018-05-18] MEDS ORDERED: GI COCKTAIL PO ONE (10:00)
[2018-05-18] MEDS ORDERED: ACETAMINOPHEN IV 100 ML IV ONE (10:00)
[2018-05-18] MEDS ORDERED: LIDOCAINE HCL 2% VISC SOLN 20 ML UDC ONE (10:34)
[2018-05-18] MEDS ORDERED: ALUMINUM/MAGNESIUM SUSP 30 ML UDC ONE (10:34)
[2018-05-18 10:39] LABS: BASO % 0.3 %; BASO ABS # 0.03 K/uL (0-0.2); EOS % 2.6 %; HEMATOCRIT 43.5 % (42-52); HEMOGLOBIN 14.7 g/dL (14.0-18.0); IG# 0.02 K/uL (0.00-0.02); LYMPH % 12.9 %; MEAN CELL VOLUME 90.4 fL (80-100); MEAN CORPUSCULAR HEMOGLOBIN 30.6 pg (25-34); MEAN CORPUSCULAR HGB CONC 33.8 g/dl (32-36); MEAN PLATELET VOLUME 10.5 fL (7.4-10.4); MONO % 5.4 %; MONO ABS # 0.63 K/uL (0.11-0.59); NEUT % 78.6 %; NEUT ABS # 9.17 K/uL (1.4-6.5); PLATELET COUNT 248 K/uL (130-400); RED CELL DISTRIBUTION WIDTH CV 12.8 % (11.5-14.5); RED CELL DISTRIBUTION WIDTH SD 42.3 fL (36.4-46.3); WHITE BLOOD COUNT 11.65 K/uL (4.8-10.8)
[2018-05-18 11:02] LABS: ALBUMIN 3.6 gm/dl (3.4-5.0); ALKALINE PHOSPHATASE 135 U/L (45-117); ALT/SGPT 28 U/L (12-78); AST/SGOT 12 U/L (15-37); BLOOD UREA NITROGEN 12 mg/dl (7-18); CALCIUM 8.3 mg/dl (8.5-10.1); CARBON DIOXIDE 29 mmol/L (21-32); GLUCOSE 82 mg/dl (70-99); LIPASE 68 U/L (73-393); POTASSIUM 3.5 mmol/L (3.5-5.1); SODIUM 140 mmol/L (136-145); TOTAL PROTEIN 6.8 gm/dl (6.4-8.2)
--- NOTE | 2018-05-18 11:17 | DIAGNOSTIC IMAGING REPORT ---
PA CHEST RADIOGRAPH AND UPRIGHT AND SUPINE AP RADIOGRAPHS OF THE ABDOMEN CLINICAL HISTORY: Abdominal pain. Crohn's disease. COMPARISON STUDY: Chest radiograph April 24, 2018 and KUB May 17, 2018. FINDINGS: Slight blunting of the right costophrenic angle is unchanged. No pneumothorax or pleural effusion is noted. Cardiac size is normal. Mediastinal contours are normal. There is no evidence for pulmonary edema. A right lower quadrant bowel anastomosis is noted. The bowel gas pattern is normal. There is no free air. IMPRESSION: 1. No free air or evidence of bowel obstruction. 2. No acute cardiopulmonary findings. Electronically signed by: Andrei Graham M.D. 05/18/2018 11:16 AM Dictated Date/Time: 05/18/2018 11:11 AM
[2018-05-18 11:55] VITALS: BP 107/67; PULSE 58; O2SAT 97
--- NOTE | 2018-05-18 15:57 | EMERGENCY ROOM VISIT NOTE ---
ED Visit Note First contact with patient: 09:22 Chief Complaint: Abdominal pain. History of Present Illness: Mr. Hughes is a 27 year-old white male who ambulates into the ED complaining of diffuse abdominal pain. Historically patient reports history of Crohn's disease. He has been seen multiple times for his ongoing abdominal pain with the last time being last night. At that time all his laboratory tests are unremarkable, and x-ray showed no obstruction. He was discharged home pain-free and on Bentyl. Patient reports a acute onset of diffuse abdominal pain that started approximately 6 hours ago prior to arrival to the hospital. Since that time the pain has been constant but has slightly waxed and waned in intensity. The pain is currently described as fused cramping and stabbing throughout the abdomen. He rates his discomfort 9/10. The pain is nonradiating. He has not identified any aggravating or alleviating factors related to the pain. He reports he has been using ibuprofen with his last dose approximately 3 hours before he arrived in the emergency department with minimal relief of his discomfort. Associated with his pain he reports he has been nauseated and has had 4 episodes of vomiting, he has noted looser stool than normal and over the last 3 days he has noted pimple-like lesions in the by axillary area. Patient denies fevers, chills, sweats, upper respiratory tract symptoms, shortness of breath, chest pain, constipation, rectal bleeding, black/tarry stools, urinary symptoms, hematuria, back/flank pain. Review of Systems: As noted above in history of present illness. All body systems were reviewed and found to be negative as noted above. Past Medical History: As previously noted and status post tonsillectomy and 2 bowel reconstructions. Current Medications: Bentyl, Lialda, Latuda Allergies to Medications: Amoxicillin. Social History: Patient is currently employed; he feels safe in his home environment; he admits to tobacco and alcohol use. Physical Examination: Vital Signs: Date Time Temp Pulse Resp B/P (MAP) Pulse Ox O2 Delivery O2 Flow Rate FiO2 05/18/18 11:55 58 18 107/67 97 05/18/18 10:48 56 16 117/59 96 Room Air 05/18/18 09:08 36.6 94 18 132/81 97 Room Air GENERAL: 27-year-old male in mild to moderate distress due to symptoms, nontoxic -appearing, afebrile and hemodynamically stable. NEUROLOGICAL: Awake, alert and oriented to person, place and time. Answering questions appropriately and following commands. Normal gait. Good hand eye coordination. SKIN: Warm, dry and pink. Bilateral Axillary Areas: Patient has a cluster of pustules that is is on an erythematous base. These are tender to palpation but no deep abscesses are palpable. HEENT: Atraumatic and normocephalic. PERRLA. Sclera white and conjunctiva pink. Oral cavity moist and pink. Pharynx is nonerythematous or edematous. Speech normal. No lymphadenopathy. Trachea midline. No jugular venous distention. BACK: No tenderness over the bony spine. No CVA tenderness. THORAX: Lungs sounds are clear to auscultation and equal bilaterally with symmetrical chest wall. No wheezing, rales or rhonchi. No crepitus, tenderness , subcutaneous air or deformities noted. HEART: Regular rate and rhythm. No gallops, rubs or murmurs are appreciated. ABDOMEN: Flat and soft diffuse abdominal tenderness. Positive bowel sounds in all quadrants. No guarding, rigidity or organomegaly. EXTREMITIES: Moves all extremities well on command and with purpose. All distal neurovascular statuses are intact and equal bilaterally. ED Course: Patient is assessed as noted above. Patient's medication list was reviewed. Laboratory Testing: Test 05/18/18 10:24 Range/Units White Blood Count 11.65 4.8-10.8 K/uL Red Blood Count 4.81 4.7-6.1 M/uL Hemoglobin 14.7 14.0-18.0 g/dL Hematocrit 43.5 42-52 % Mean Corpuscular Volume 90.4 80-100 fL Mean Corpuscular Hemoglobin 30.6 25-34 pg Mean Corpuscular Hemoglobin Concent 33.8 32-36 g/dl Platelet Count 248 130-400 K/uL Mean Platelet Volume 10.5 7.4-10.4 fL Neutrophils (%) (Auto) 78.6 % Lymphocytes (%) (Auto) 12.9 % Monocytes (%) (Auto) 5.4 % Eosinophils (%) (Auto) 2.6 % Basophils (%) (Auto) 0.3 % Neutrophils # (Auto) 9.17 1.4-6.5 K/uL Lymphocytes # (Auto) 1.50 1.2-3.4 K/uL Monocytes # (Auto) 0.63 0.11-0.59 K/uL Eosinophils # (Auto) 0.30 0-0.5 K/uL Basophils # (Auto) 0.03 0-0.2 K/uL RDW Standard Deviation 42.3 36.4-46.3 fL RDW Coefficient of Variation 12.8 11.5-14.5 % Immature Granulocyte % (Auto) 0.2 % Immature Granulocyte # (Auto) 0.02 0.00-0.02 K/uL Erythrocyte Sedimentation Rate 2 0-14 mm/hr Sodium Level 140 136-145 mmol/L Potassium Level 3.5 3.5-5.1 mmol/L Chloride Level 107 98-107 mmol/L Carbon Dioxide Level 29 21-32 mmol/L Anion Gap 4.0 3-11 mmol/L Blood Urea Nitrogen 12 7-18 mg/dl Creatinine 1.00 0.60-1.40 mg/dl Est Creatinine Clear Calc Drug Dose 130.3 ml/min Estimated GFR () 120.7 Estimated GFR (Non- 104.1 BUN/Creatinine Ratio 11.7 10-20 Random Glucose 82 70-99 mg/dl Calcium Level 8.3 8.5-10.1 mg/dl Total Bilirubin 0.7 0.2-1 mg/dl Direct Bilirubin 0.2 0-0.2 mg/dl Aspartate Amino Transf (AST/SGOT) 12 15-37 U/L Alanine Aminotransferase (ALT/SGPT) 28 12-78 U/L Alkaline Phosphatase 135 45-117 U/L Troponin I < 0.015 0-0.045 ng/ml C-Reactive Protein 1.20 0-0.29 mg/dl Total Protein 6.8 6.4-8.2 gm/dl Albumin 3.6 3.4-5.0 gm/dl Lipase 68 73-393 U/L Acute Abdominal Series: Was read by myself and the radiologist and shows normal heart silhouette, slight blurring of the right costophrenic angle which is unchanged from last night, no pulmonary effusions or pneumothorax. No evidence of pulmonary emboli's. No free air under the diaphragms are throughout the abdomen. Normal bowel gas pattern. Right lower quadrant anastomosis was noted. Patient was hydrated with normal saline and received 600 mg of acetaminophen IV , 4 mg of Zofran IV and a GI cocktail. Patient was reassessed multiple times during his stay in the emergency department. Patient's case was reviewed with Dr. Bedolla; we agreed on diagnostic approach , treatment, disposition and plan. Patient was educated about today's findings and instructed on his treatment plan ; he verbalized understanding and agreement with this plan. Clinical Impression: Acute on chronic abdominal pain. Decision-Making: Initially my differential diagnosis I considered acute on chronic abdominal pain, bowel obstruction, colitis, gastroenteritis, gastritis, perforated viscus and other causes. Disposition: Patient discharged home in stable condition; prior to departure he was reassessed and subjectively reported he was feeling better but continued to rate his discomfort 9/10. Plan: Patient was encouraged to continue his current medications as prescribed. Patient was encouraged to use 650 mg of acetaminophen every 6 hours as needed for pain and to avoid gastric irritants. Patient was encouraged to stay well-hydrated with increased clear fluids. Patient did report that he was going to be following up with gastroenterology in the [place] area. Patient was encouraged return the ED for worsening pain, fevers, bloody stools, bloody vomitus, uncontrolled vomiting or any new/concerning symptoms.
== END 2018-05-18 11:57 | disposition home or self-care (01) ==
LOC: C.EDB 09:06 → C.EDC 11:57
DX: R10.9 Unspecified abdominal pain (principal); K50.90 Crohn's disease, unspecified, without complications; Z88.8 Allergy status to other drugs, medicaments and biological substances; F17.200 Nicotine dependence, unspecified, uncomplicated

== ENCOUNTER 2018-05-20 09:21 | Emergency (ER) | payer SELFPAY ==
[~2018-05-20] VITALS: Ht 188 cm; Wt 82.6 kg
[~2018-05-20 09:21] MED LIST changes: +MESA1.2T PO
[2018-05-20 09:24] VITALS: TEMP 36.4; Ht 188 cm; Wt 82.6 kg
--- NOTE | 2018-05-20 09:53 | EMERGENCY ROOM VISIT NOTE ---
History Report prepared by Rafia: Zaira Rios Under the Supervision of: Dr. Edel Cornell M.D. First contact with patient: 09:36 Chief Complaint: ABDOMINAL PAIN Stated Complaint: HX OF CROHNS,VOMITING,SORES UNDER ARMS,ABD PAIN History of Present Illness The patient is a 27 year old male who presents to the Emergency Room with complaints of worsening abdominal pain over the last week. The patient states that he also has sores on his legs and under his armpits. He states that he has had these leg sores over the last couple of weeks but states that his sores under his arms pits started about 5 days ago. The patient states that he has been vomiting and that he has started vomiting bile. He reports that he has been unable to eat. The patient denies being febrile. The patient reports that he has been passing blood and that he is seeing a new GI doctor in 2 weeks. Source of History: patient Onset: over the last week Position: abdomen Quality: other (pain) Timing: worsening Associated Symptoms: + vomiting, No fevers Note: additional symptom: sores on legs and under armpits Review of Systems See HPI for pertinent positives & negatives. A total of 10 systems reviewed and were otherwise negative. Past Medical & Surgical Medical Problems: (1) Abdominal pain (2) Abdominal pain (3) Abdominal pain (4) Crohns disease (5) Crohns disease (6) Crohns disease (7) Exacerbation of Crohn's disease (8) H/O resection of large bowel (9) Intractable abdominal pain (10) Right corneal abrasion (11) Right shoulder pain (12) Shoulder pain, acute Surgical Problems: (1) Hx of resection of large bowel Family History Cancer Diabetes mellitus FH: heart disease Hypertension Lung disease Social History Smoking Status: Current Every Day Smoker Alcohol Use: none Drug Use: none Marital Status: single Housing Status: lives with friends Occupation Status: employed Current/Historical Medications Scheduled Dicyclomine Hcl (Bentyl), 10 MG PO TID Lurasidone Hcl (Latuda), 1 DOSE PO HS Mesalamine (Lialda), 1 TAB PO HS Sulfa/Trimethoprim (Bactrim Ds 800MG/160MG), 1 TAB PO BID Allergies Coded Allergies: Amoxicillin (Verified Allergy, Unknown, Unknown, 05/20/18) Reported by PT. Pt states allergy only to Amoxicillin. Physical Exam Vital Signs Date Time Temp Pulse Resp B/P (MAP) Pulse Ox O2 Delivery O2 Flow Rate FiO2 05/20/18 14:33 57 18 118/65 98 05/20/18 13:20 55 05/20/18 13:15 55 18 120/75 97 Room Air 05/20/18 11:20 55 16 99/58 98 Room Air 05/20/18 10:37 54 05/20/18 09:24 36.4 76 18 136/80 98 Room Air Physical Exam Vital signs reviewed. General: Generally well-appearing male, in no significant distress. Disheveled with poor overall hygiene HEENT: No scleral icterus, PERRLA, neck supple. Atraumatic. Cardiovascular: Regular rate and rhythm, no extra sounds. Pulmonary: Clear to auscultation bilaterally, normal work of breathing. Abdomen: Soft, largely nontender, nondistended, positive bowel sounds. No rebound, no guarding. Musculoskeletal: Atraumatic, no peripheral edema. Neurologic: Patient awake alert and oriented x 3 Skin: Warm, dry. Multiple abscess/follicular collections to the axilla bilaterally subcentimeter to the bilateral axilla. Folliculitis of the bilateral lower extremities diffusely to the groin. No tracking or erythematous lesions noted to the interdigit web spaces of the feet. Medical Decision & Procedures Laboratory Results 05/20/18 09:55 Red Blood Count 4.75, Mean Corpuscular Volume 90.9, Mean Corpuscular Hemoglobin 31.8, Mean Corpuscular Hemoglobin Concent 35.0, Mean Platelet Volume 10.4, Neutrophils (%) (Auto) 78.7, Lymphocytes (%) (Auto) 13.9, Monocytes (%) (Auto) 4.0, Eosinophils (%) (Auto) 2.9, Basophils (%) (Auto) 0.3, Neutrophils # (Auto) 8.86, Lymphocytes # (Auto) 1.57, Monocytes # (Auto) 0.45, Eosinophils # (Auto) 0.33, Basophils # (Auto) 0.03 05/20/18 09:55 Test 05/20/18 09:55 White Blood Count 11.26 K/uL (4.8-10.8) Red Blood Count 4.75 M/uL (4.7-6.1) Hemoglobin 15.1 g/dL (14.0-18.0) Hematocrit 43.2 % (42-52) Mean Corpuscular Volume 90.9 fL (80-100) Mean Corpuscular Hemoglobin 31.8 pg (25-34) Mean Corpuscular Hemoglobin Concent 35.0 g/dl (32-36) Platelet Count 236 K/uL (130-400) Mean Platelet Volume 10.4 fL (7.4-10.4) Neutrophils (%) (Auto) 78.7 % Lymphocytes (%) (Auto) 13.9 % Monocytes (%) (Auto) 4.0 % Eosinophils (%) (Auto) 2.9 % Basophils (%) (Auto) 0.3 % Neutrophils # (Auto) 8.86 K/uL (1.4-6.5) Lymphocytes # (Auto) 1.57 K/uL (1.2-3.4) Monocytes # (Auto) 0.45 K/uL (0.11-0.59) Eosinophils # (Auto) 0.33 K/uL (0-0.5) Basophils # (Auto) 0.03 K/uL (0-0.2) RDW Standard Deviation 42.6 fL (36.4-46.3) RDW Coefficient of Variation 12.9 % (11.5-14.5) Immature Granulocyte % (Auto) 0.2 % Immature Granulocyte # (Auto) 0.02 K/uL (0.00-0.02) Erythrocyte Sedimentation Rate 7 mm/hr (0-14) Anion Gap 3.0 mmol/L (3-11) Est Creatinine Clear Calc Drug Dose 131.3 ml/min Estimated GFR () 120.7 Estimated GFR (Non- 104.1 BUN/Creatinine Ratio 5.1 (10-20) Calcium Level 8.6 mg/dl (8.5-10.1) Total Bilirubin 1.0 mg/dl (0.2-1) Direct Bilirubin 0.2 mg/dl (0-0.2) Aspartate Amino Transf (AST/SGOT) 11 U/L (15-37) Alanine Aminotransferase (ALT/SGPT) 27 U/L (12-78) Alkaline Phosphatase 151 U/L (45-117) C-Reactive Protein 1.87 mg/dl (0-0.29) Total Protein 7.5 gm/dl (6.4-8.2) Albumin 3.8 gm/dl (3.4-5.0) Lipase 72 U/L (73-393) Laboratory results per my review. Medications Administered Medications (Trade) Dose Ordered Sig/Ngoc Route Start Time Stop Time Status Last Admin Dose Admin Sodium Chloride 1,000 ml @ 999 mls/hr Q1H1M STAT IV 05/20/18 09:56 05/20/18 10:56 DC 05/20/18 10:00 999 MLS/HR Ketorolac Tromethamine (Toradol Inj) 30 mg NOW STAT IV 05/20/18 09:56 05/20/18 10:01 DC 05/20/18 10:14 30 MG Trimethoprim/ Sulfamethoxazole (Septra Ds 800/ 160MG Tab) 1 tab NOW ONCE PO 05/20/18 10:00 05/20/18 10:01 DC 05/20/18 10:14 1 TAB Procedure Incision & Drainage Indication: Abscess. Location: Bilateral axilla, 5 on right, 6 on left Verbal consent was obtained after the risks and benefits were explained, including but not limited to bleeding, scarring, infection, pain, and bone/joint /nerve damage. At this time, the risks of the procedure are less than the risks of NOT performing the procedure. A time out was taken and the correct patient and site identified. The skin was prepped with betadine and a sterile field set. The wound was anesthetized with 8 ml of 1% lidocaine without epinephrine. The abscess cavity was entered with a number 11 blade and a small amount of purulent material expressed from each site. Copious irrigation was performed using normal saline solution. The wound was explored for foreign bodies and none found. Debridement was not performed. Packing placed and a sterile dressing applied. Detailed wound care instructions and signs and symptoms of worsening infection reviewed with the patient. No complications and the patient tolerated the procedure well. ED Course 0947: Past medical records reviewed. The patient was evaluated in room B2. A complete history and physical examination was performed. 1255: I performed an incision and drainage on the patient. 1335: Upon reevaluation, the patient appeared to have improvement of his symptoms. I discussed findings with him. He verbalized agreement of the treatment plan. He was discharged home. Medical Decision Differential diagnosis: Etiologies such as cellulitis, abscess, MRSA infection, DVT, necrotizing fasciitis, dermatitis, drug eruption, exacerbation of Crohn's, viral illness, small bowel obstruction, as well as others were entertained.. This patient was evaluated and appeared to be in no significant distress. Evaluation of the axilla bilaterally reveal multiple sebaceous cysts fairly small, subcentimeter size. Patient was hydrated with normal saline solution, given IV Toradol for his discomfort. Laboratory work is fairly unrevealing. Patient was given Bactrim DS 1 tablet p.o. I&D was performed of the bilateral axilla. Cultures are pending. Patient will be treated with Bactrim DS 1 tab twice a day for 7 days. He was given wound care instructions and chlorhexidine wash for the axilla. He will use antibiotic ointment and a dry dressing. Patient will follow up with his PCP and return to the ED for worsening of symptoms or any medical concerns. Medication Reconcilliation Current Medication List: was personally reviewed by me Blood Pressure Screening Patient's blood pressure: Normal blood pressure Impression Primary Impression: Abscesses of both axillae Additional Impression: Folliculitis Scribe Attestation The scribe's documentation has been prepared under my direction and personally reviewed by me in its entirety. I confirm that the note above accurately reflects all work, treatment, procedures, and medical decision making performed by me. Departure Information Dispostion Home / Self-Care Prescriptions Sulfa/Trimethoprim (Bactrim Ds 800MG/160MG) Tab 1 TAB PO BID, #14 TAB Prov: Edel Cornell M.D. 05/20/18 Referrals No Doctor, Assigned (PCP) Forms HOME CARE DOCUMENTATION FORM, IMPORTANT VISIT INFORMATION Patient Instructions My [facility] Additional Instructions Diagnosis: Abscess of the bilateral axilla, folliculitis of the bilateral lower extremities Bactrim DS 1 tablet twice daily for 7 days. Wash with chlorhexidine wipes to the axilla twice daily until gone. Apply antibiotic ointment and a dry dressing to avoid allowing the axilla to rub. Use an unscented, hypoallergenic soap with your daily shower. Follow-up with your primary care physician as soon as possible for reevaluation. You may require general surgery consultation for sebaceous abscess of the axilla bilaterally Tylenol 650 mg every 6 hours as needed for pain. Return to the emergency department for worsening of symptoms or any medical concerns. Problem Qualifiers
[2018-05-20] MEDS ORDERED: KETOROLAC TROMETHAMINE 30 MG/ML VIAL IV STA (09:56)
[2018-05-20] MEDS ORDERED: SODIUM CHLORIDE 0.9% 1000ML 1,000 ML IV STA (09:56)
[2018-05-20] MEDS ORDERED: SULFAMETHOXAZOLE/TRIMETHOPRIM DS 800/160MG TAB PO ONE (10:00)
[2018-05-20 10:12] LABS: BASO % 0.3 %; BASO ABS # 0.03 K/uL (0-0.2); EOS % 2.9 %; EOS ABS # 0.33 K/uL (0-0.5); HEMATOCRIT 43.2 % (42-52); HEMOGLOBIN 15.1 g/dL (14.0-18.0); IG# 0.02 K/uL (0.00-0.02); LYMPH % 13.9 %; LYMPH ABS # 1.57 K/uL (1.2-3.4); MEAN CELL VOLUME 90.9 fL (80-100); MEAN CORPUSCULAR HEMOGLOBIN 31.8 pg (25-34); MEAN PLATELET VOLUME 10.4 fL (7.4-10.4); MONO ABS # 0.45 K/uL (0.11-0.59); NEUT % 78.7 %; NEUT ABS # 8.86 K/uL (1.4-6.5); PLATELET COUNT 236 K/uL (130-400); RED CELL DISTRIBUTION WIDTH CV 12.9 % (11.5-14.5); RED CELL DISTRIBUTION WIDTH SD 42.6 fL (36.4-46.3); WHITE BLOOD COUNT 11.26 K/uL (4.8-10.8)
[2018-05-20] MEDS ORDERED: LIDOCAINE 1% BUFFERED INJ 20 ML VIAL INFIL ONE (10:15)
[2018-05-20 10:33] LABS: ALBUMIN 3.8 gm/dl (3.4-5.0); CALCIUM 8.6 mg/dl (8.5-10.1); POTASSIUM 3.3 mmol/L (3.5-5.1); TOTAL PROTEIN 7.5 gm/dl (6.4-8.2)
[2018-05-20] MEDS ORDERED: SULF800T23 PO (14:18)
[2018-05-20 14:33] VITALS: BP 118/65; PULSE 57; O2SAT 98
== END 2018-05-20 14:35 | disposition home or self-care (01) ==
LOC: C.EDB 09:22
DX: L02.411 Cutaneous abscess of right axilla (principal); L02.412 Cutaneous abscess of left axilla; L73.9 Follicular disorder, unspecified; K50.90 Crohn's disease, unspecified, without complications; F17.200 Nicotine dependence, unspecified, uncomplicated; Z88.1 Allergy status to other antibiotic agents

== ENCOUNTER 2018-05-26 09:08 | Emergency (ER) | payer SELFPAY ==
[~2018-05-26] VITALS: Ht 188 cm; Wt 81.0 kg
[~2018-05-26 09:08] MED LIST changes: +SULF800T23 PO
[2018-05-26 09:12] VITALS: TEMP 36.4; Ht 188 cm; Wt 81.0 kg
[2018-05-26] MEDS ORDERED: KETOROLAC TROMETHAMINE 30 MG/ML VIAL IV STA (09:30)
[2018-05-26] MEDS ORDERED: SODIUM CHLORIDE 0.9% 1000ML 2,000 ML IV STA (09:30)
--- NOTE | 2018-05-26 09:36 | EMERGENCY ROOM VISIT NOTE ---
History Report prepared by Scribe: Cortney Geronimo Under the Supervision of: Dr. Kishor Toth D.O. First contact with patient: 09:18 Chief Complaint: GI ASSESSMENT Stated Complaint: ABD PAIN,NAUSEA,VOMITING,HX OF CROHNS Nursing Triage Summary: Pt states he was told to come back to ED because of the bright red blood in his vomit, abd pain, and diarrhea. History of Present Illness The patient is a 28 year old male who presents to the Emergency Room with complaints of left lower lower abdominal pain. Started at 2 AM this morning. Patient has a history of Crohn's and has had 2 feet of bowel removed in 2 separate surgeries. He notes he contacted his GI doctor in [place] this morning who referred him into the ER. He has been seen here 6 times in the past 2 months for similar complaint. Pain is located in the left lower quadrant sharp and constant. No other exacerbating or remitting factors. Last bowel movement was 2 days ago. Has been passing gas today. Did vomit twice. Each episode has had a teaspoon of bright red blood. He denies any dark tarry stools or bright red blood per rectum. No fevers. Patient does take Latuda. He has not missed any doses. No headache change in vision, chest pain or shortness of breath. No pain when he pees. No pain in his testicles. Patient did have some streaks of bright red blood in his vomit. Source of History: patient Onset: 0200 today Position: abdomen (LLQ) Quality: sharp Timing: constant Associated Symptoms: + vomiting, No fevers, No chest pain, No SOB, No urinary symptoms Review of Systems See HPI for pertinent positives & negatives. A total of 10 systems reviewed and were otherwise negative. Past Medical & Surgical Medical Problems: (1) Abdominal pain (2) Abdominal pain (3) Abdominal pain (4) Crohns disease (5) Crohns disease (6) Crohns disease (7) Exacerbation of Crohn's disease (8) H/O resection of large bowel (9) Intractable abdominal pain (10) Right corneal abrasion (11) Right shoulder pain (12) Shoulder pain, acute Surgical Problems: (1) Hx of resection of large bowel Family History Cancer Diabetes mellitus FH: heart disease Hypertension Lung disease Social History Smoking Status: Current Every Day Smoker Alcohol Use: none Drug Use: none Marital Status: single Housing Status: lives with friends Occupation Status: employed Current/Historical Medications Scheduled Dicyclomine Hcl (Bentyl), 10 MG PO TID Lurasidone Hcl (Latuda), 1 DOSE PO HS Mesalamine (Lialda), 1 TAB PO HS Prednisone (Prednisone), 50 MG PO DAILY Sulfa/Trimethoprim (Bactrim Ds 800MG/160MG), 1 TAB PO BID Allergies Coded Allergies: Amoxicillin (Verified Allergy, Unknown, Unknown, 05/26/18) Reported by PT. Pt states allergy only to Amoxicillin. Physical Exam Vital Signs Date Time Temp Pulse Resp B/P (MAP) Pulse Ox O2 Delivery O2 Flow Rate FiO2 05/26/18 12:30 54 18 94/57 98 Room Air 05/26/18 10:31 56 17 109/68 100 Room Air 05/26/18 09:12 36.4 66 18 116/70 98 Room Air Physical Exam GENERAL: Sitting up in bed, alert, well appearing, well nourished, no distress, non-toxic EYE EXAM: normal conjunctiva. OROPHARYNX: no exudate, no erythema, lips, buccal mucosa, and tongue normal and mucous membranes are moist NECK: supple, no nuchal rigidity, no adenopathy, non-tender LUNGS: Clear to auscultation. Normal chest wall mechanics HEART: no murmurs, S1 normal and S2 normal ABDOMEN: abdomen soft, non-tender, normo-active bowel sounds, no masses, no rebound or guarding. Old midline abdominal incision BACK: Back is symmetrical on inspection and there is no deformity, no midline tenderness, no CVA tenderness. SKIN: no rashes and no bruising RECTAL: No external hemorrhoids. Heme-negative brown stool. UPPER EXTREMITIES: upper extremities are grossly normal. LOWER EXTREMITIES: No pitting edema. NEURO EXAM: Normal sensorium, cranial nerves II-XII grossly intact, normal speech, no gross weakness of arms, no gross weakness of legs. Medical Decision & Procedures ER Provider Diagnostic Interpretation: Radiology results as stated below per my review and the radiologist's interpretation: ABD/PELVIS IV CONTRAST ONLY CLINICAL HISTORY: 28 years-old Male presenting with sb dilation, abdominal pain, history of Crohn's disease. TECHNIQUE: Multidetector CT of the abdomen and pelvis was performed after the administration of intravenous contrast. IV contrast: 118 mL of Optiray 320. A dose lowering technique was used consistent with the principles of ALARA (as low as reasonably achievable). COMPARISON: 03/29/2018. CT DOSE (mGy.cm): The estimated cumulative dose is 329.63 mGy.cm. FINDINGS: [employer] topogram: Unremarkable. Lung bases: Chronic scarring in the dependent subpleural right lower lobe. Minimal left basilar atelectasis. Normal heart size. No pericardial or pleural effusion. Liver: Normal morphology. Mild periportal edema suggested. No liver lesion. Patent hepatic vasculature. Biliary: No intrahepatic or extrahepatic biliary ductal dilatation. Normal gallbladder. Pancreas: Normal. Spleen: Normal. Adrenal glands: Normal. Kidneys and ureters: Well-defined hypodensities, likely cysts though by density these are not simple. This may suggest hemorrhagic or proteinaceous cysts more likely than solid neoplasm. This is stable on the right but has increased in size on the left. Punctate nonobstructing calculus in the interpolar region of the left kidney. No hydronephrosis. Ureters are nondilated. Bladder: Incompletely evaluated secondary to underdistention. Pelvic organs: Prostate and seminal vesicles normal. Bowel: Wall thickening of the rectum extending proximally to the ileocolic anastomosis in the right mid abdomen. Postsurgical changes of ileocecectomy. Patent ileocolic anastomosis. No convincing evidence of wall thickening of the neoterminal ileum. Prominence of the vasa recta in the colon. No pericolonic or perienteric inflammatory change. Peritoneal cavity: No free fluid or intraperitoneal gas. Lymph nodes: No enlarged lymph nodes in the abdomen or pelvis. Vasculature: Aorta and IVC patent and normal in caliber. Abdominal wall: Postsurgical changes of the midline ventral abdominal wall. No evidence of a cutaneous fistula or fluid collection. Ischiorectal fossae normal. Musculoskeletal: Normal. IMPRESSION: 1. Diffuse colonic wall thickening. This is nonspecific and similar to prior exam. An acute on chronic component of inflammation is difficult to exclude though there is no pericolonic inflammatory change to suggest a moderate to severe degree of acute inflammation. No current evidence of acute or chronic inflammatory changes in the small bowel. No evidence of penetrating or fibrostenotic disease. 2. Postsurgical changes of ileocecectomy. 3. Nonobstructing punctate left renal calculus. 4. Hyperdense bilateral renal lesions, unchanged in size on the right but increased in size on the left. These may represent hemorrhagic or proteinaceous cysts. However, the increase in size of the left renal lesion is somewhat unexpected. Further evaluation with renal ultrasound recommended. The report will be called/faxed according to standard departmental protocol. Electronically signed by: Aaron Doherty M.D. 05/26/2018 11:28 AM ABDOMEN 2VIEW W/PA CHEST RTN CLINICAL HISTORY: 28 years-old Male presenting with abd pain, nausea, vomiting, history of Crohn's disease . TECHNIQUE: PA view of the chest and supine and upright views of the abdomen were obtained. COMPARISON: 05/18/2018. FINDINGS: Cardiomediastinal silhouette normal. Lungs and pleural spaces clear. Anastomotic suture lines evident in the right mid abdomen. Mild distention of a loop of small bowel in the right lower quadrant, with an apparent diameter of 3.2 cm. Suspected wall thickening of this loop of bowel. No gross pneumoperitoneum. Right renal calculus noted. Calcifications in the pelvis likely phleboliths. Osseous structures normal. IMPRESSION: 1. No acute cardiopulmonary disease. 2. Postsurgical changes of the bowel with suspected wall thickening and mild distention of a loop of small bowel in the right lower quadrant. Consider CT or MR enterography as appropriate. Electronically signed by: Aaron Doherty M.D. 05/26/2018 10:05 AM Laboratory Results 05/26/18 09:35 Red Blood Count 4.77, Mean Corpuscular Volume 89.9, Mean Corpuscular Hemoglobin 31.4, Mean Corpuscular Hemoglobin Concent 35.0, Mean Platelet Volume 10.2, Neutrophils (%) (Auto) 63.5, Lymphocytes (%) (Auto) 25.4, Monocytes (%) (Auto) 6.9, Eosinophils (%) (Auto) 3.9, Basophils (%) (Auto) 0.3, Neutrophils # (Auto) 4.04, Lymphocytes # (Auto) 1.62, Monocytes # (Auto) 0.44, Eosinophils # (Auto) 0.25, Basophils # (Auto) 0.02 05/26/18 09:35 Test 05/26/18 09:35 White Blood Count 6.37 K/uL (4.8-10.8) Red Blood Count 4.77 M/uL (4.7-6.1) Hemoglobin 15.0 g/dL (14.0-18.0) Hematocrit 42.9 % (42-52) Mean Corpuscular Volume 89.9 fL (80-100) Mean Corpuscular Hemoglobin 31.4 pg (25-34) Mean Corpuscular Hemoglobin Concent 35.0 g/dl (32-36) Platelet Count 253 K/uL (130-400) Mean Platelet Volume 10.2 fL (7.4-10.4) Neutrophils (%) (Auto) 63.5 % Lymphocytes (%) (Auto) 25.4 % Monocytes (%) (Auto) 6.9 % Eosinophils (%) (Auto) 3.9 % Basophils (%) (Auto) 0.3 % Neutrophils # (Auto) 4.04 K/uL (1.4-6.5) Lymphocytes # (Auto) 1.62 K/uL (1.2-3.4) Monocytes # (Auto) 0.44 K/uL (0.11-0.59) Eosinophils # (Auto) 0.25 K/uL (0-0.5) Basophils # (Auto) 0.02 K/uL (0-0.2) RDW Standard Deviation 41.6 fL (36.4-46.3) RDW Coefficient of Variation 12.6 % (11.5-14.5) Immature Granulocyte % (Auto) 0.0 % Immature Granulocyte # (Auto) 0.00 K/uL (0.00-0.02) Erythrocyte Sedimentation Rate 2 mm/hr (0-14) Anion Gap 4.0 mmol/L (3-11) Est Creatinine Clear Calc Drug Dose 144.1 ml/min Estimated GFR () 136.8 Estimated GFR (Non- 118.0 BUN/Creatinine Ratio 8.9 (10-20) Calcium Level 8.9 mg/dl (8.5-10.1) Total Bilirubin 0.4 mg/dl (0.2-1) Direct Bilirubin 0.1 mg/dl (0-0.2) Aspartate Amino Transf (AST/SGOT) 14 U/L (15-37) Alanine Aminotransferase (ALT/SGPT) 24 U/L (12-78) Alkaline Phosphatase 135 U/L (45-117) C-Reactive Protein < 0.29 mg/dl (0-0.29) Total Protein 7.0 gm/dl (6.4-8.2) Albumin 3.7 gm/dl (3.4-5.0) Lipase 92 U/L (73-393) Laboratory results per my review. Medications Administered Medications (Trade) Dose Ordered Sig/Ngoc Route Start Time Stop Time Status Last Admin Dose Admin Sodium Chloride 2,000 ml @ 999 mls/hr Q2H1M STAT IV 05/26/18 09:30 05/26/18 11:30 DC 05/26/18 09:30 999 MLS/HR Ketorolac Tromethamine (Toradol Inj) 30 mg NOW STAT IV 05/26/18 09:30 05/26/18 09:31 DC 05/26/18 09:41 30 MG Methylprednisolone Sodium Succinate (Solu-Medrol IV) 125 mg NOW STAT IV 05/26/18 12:19 05/26/18 12:20 DC 05/26/18 12:39 125 MG ED Course ED COURSE: Vital signs were reviewed and showed normal vital signs The patients medical record was reviewed The above diagnostic studies were performed and reviewed. ED treatments and interventions as stated above. 0925: The patient was evaluated in room B4. A complete history and physical examination was performed. 0930: Toradol 30 mg IV, NSS 2000 ml @ 999 mls/hr IV. 1157: I discussed the patients case with Dr. Banda, [facility]. The patient will be further evaluated. 1219: Solu-Medrol 125 mg IV. 1219: Upon reevaluation, the patient is feeling better and would like to go home. I offered him a chance to stay in the hospital for further evaluation, but he declines. I discussed my findings with the patient and he understands and agrees with the treatment plan. He will follow up with Gastroenterology as an outpatient. Based on the patients age, coexisting illnesses, exam and lab findings the decision to treat as an outpatient was made. The patient remained stable while under my care. The patient appeared well at the time of discharge. Medical Decision Differential diagnoses includes but is not limited to gastritis, peptic ulcer disease, GERD, gallbladder disease, pancreatitis, small bowel obstruction, acute coronary syndrome, pericarditis, ischemic bowel, irritable bowel disease, irritable bowel syndrome, appendicitis, diverticulitis, malignancy, hernia, urinary tract infection, torsion, /ectopic (if female), perforation, trauma, infectious. Patient is a 28-year-old male with a past medical history of Crohn's that presents to ER for left lower quadrant abdominal pain feels consistent with his previous Crohn's exacerbations. He did vomit twice. Once he did have bright red blood in his vomit. Patient notes that this feels like his previous Crohn' s exacerbations. Has had 2 previous surgeries. Abdominal exam is benign. CBC along with BMP and LFTs, bilirubin lipase is unremarkable. CRP was negative. X -rays showed a dilated small bowel and consequently a CT was ordered based on this. CT showed no acute change from previous. Updated and discussed with GI. They did offer observation which I relayed to the patient but he declined. He prefer to go home on steroids. I did update him in regards to the renal mass which she will have followed up. Discussed with Pt concerning signs and symptoms to watch out for. Pt was instructed to follow up with their PCP and discussed with the patient their option to return to the ED at anytime for persistent or worsening symptoms. The appropriate anticipatory guidance and out- patient management, including indications for return to the emergency department , were explained at length to the patient and understood. Medication Reconcilliation Current Medication List: was personally reviewed by me Blood Pressure Screening Patient's blood pressure: Normal blood pressure Blood pressure disposition: Did not require urgent referral Consults Time Called: 1155 Consulting Physician: Dr. Banda, [facility] Returned Call: 1157 I discussed the patients case with Dr. Banda, [facility]. The patient will be further evaluated. Impression Primary Impression: Exacerbation of Crohn's disease Additional Impressions: Hematemesis Renal mass Scribe Attestation The scribe's documentation has been prepared under my direction and personally reviewed by me in its entirety. I confirm that the note above accurately reflects all work, treatment, procedures, and medical decision making performed by me. Departure Information Dispostion Home / Self-Care Prescriptions Prednisone (PREDNISONE) 50 Mg Tab 50 MG PO DAILY for 4 Days, TAB Prov: Kishor Toth, 05/26/18 Referrals No Doctor, Assigned (PCP) Patient Instructions ED Inflam Bowel Disease Radha Carreon [facility] Additional Instructions Please follow up with your primary care doctor with in the next 24 hours. Any worsening of your symptoms, please return to the ED immediately. This includes any fevers greater than 100.4, worsening pain, chest pain, shortness breath, persistent nausea, vomiting, unable to eat or drink, vomiting blood, dark tarry stools, bright red blood in her stool, passing out, or any other concerning signs or symptoms from your standpoint. Please take Tylenol as needed for pain. Please make sure that you follow-up with your GI doctor in the next 24 hours. You must have the renal masses followed up on within the next 2 weeks and have a complete ultrasound of your kidneys. These do not appear to have changed from your previous CTs significantly. Please take the steroids as prescribed. Problem Qualifiers Primary Impression: Exacerbation of Crohn's disease Digestive disease complication type: unspecified complication Qualified Codes : K50.919 - Crohn's disease, unspecified, with unspecified complications Additional Impressions: Hematemesis Nausea presence: without nausea Qualified Codes: K92.0 - Hematemesis
[2018-05-26 09:51] LABS: BASO % 0.3 %; BASO ABS # 0.02 K/uL (0-0.2); EOS % 3.9 %; EOS ABS # 0.25 K/uL (0-0.5); HEMATOCRIT 42.9 % (42-52); LYMPH % 25.4 %; LYMPH ABS # 1.62 K/uL (1.2-3.4); MEAN CELL VOLUME 89.9 fL (80-100); MEAN CORPUSCULAR HEMOGLOBIN 31.4 pg (25-34); MEAN PLATELET VOLUME 10.2 fL (7.4-10.4); MONO % 6.9 %; MONO ABS # 0.44 K/uL (0.11-0.59); NEUT % 63.5 %; NEUT ABS # 4.04 K/uL (1.4-6.5); PLATELET COUNT 253 K/uL (130-400); RED CELL DISTRIBUTION WIDTH CV 12.6 % (11.5-14.5); RED CELL DISTRIBUTION WIDTH SD 41.6 fL (36.4-46.3); WHITE BLOOD COUNT 6.37 K/uL (4.8-10.8)
[2018-05-26 10:04] LABS: ALBUMIN 3.7 gm/dl (3.4-5.0); ALKALINE PHOSPHATASE 135 U/L (45-117); ALT/SGPT 24 U/L (12-78); AST/SGOT 14 U/L (15-37); BLOOD UREA NITROGEN 8 mg/dl (7-18); CALCIUM 8.9 mg/dl (8.5-10.1); CARBON DIOXIDE 28 mmol/L (21-32); CREATININE 0.89 mg/dl (0.60-1.40); GLUCOSE 84 mg/dl (70-99); LIPASE 92 U/L (73-393); POTASSIUM 3.8 mmol/L (3.5-5.1); SODIUM 140 mmol/L (136-145)
--- NOTE | 2018-05-26 10:06 | DIAGNOSTIC IMAGING REPORT ---
ABDOMEN 2VIEW W/PA CHEST RTN CLINICAL HISTORY: 28 years-old Male presenting with abd pain, nausea, vomiting, history of Crohn's disease . TECHNIQUE: PA view of the chest and supine and upright views of the abdomen were obtained. COMPARISON: 05/18/2018. FINDINGS: Cardiomediastinal silhouette normal. Lungs and pleural spaces clear. Anastomotic suture lines evident in the right mid abdomen. Mild distention of a loop of small bowel in the right lower quadrant, with an apparent diameter of 3.2 cm. Suspected wall thickening of this loop of bowel. No gross pneumoperitoneum. Right renal calculus noted. Calcifications in the pelvis likely phleboliths. Osseous structures normal. IMPRESSION: 1. No acute cardiopulmonary disease. 2. Postsurgical changes of the bowel with suspected wall thickening and mild distention of a loop of small bowel in the right lower quadrant. Consider CT or MR enterography as appropriate. Electronically signed by: Aaron Doherty M.D. 05/26/2018 10:05 AM Dictated Date/Time: 05/26/2018 10:02 AM
[2018-05-26] MEDS ORDERED: OPTIRAY 320 IV PRN (11:00)
--- NOTE | 2018-05-26 11:30 | DIAGNOSTIC IMAGING REPORT ---
ABD/PELVIS IV CONTRAST ONLY CLINICAL HISTORY: 28 years-old Male presenting with sb dilation, abdominal pain, history of Crohn's disease. TECHNIQUE: Multidetector CT of the abdomen and pelvis was performed after the administration of intravenous contrast. IV contrast: 118 mL of Optiray 320. A dose lowering technique was used consistent with the principles of ALARA (as low as reasonably achievable). COMPARISON: 03/29/2018. CT DOSE (mGy.cm): The estimated cumulative dose is 329.63 mGy.cm. FINDINGS: [employer] topogram: Unremarkable. Lung bases: Chronic scarring in the dependent subpleural right lower lobe. Minimal left basilar atelectasis. Normal heart size. No pericardial or pleural effusion. Liver: Normal morphology. Mild periportal edema suggested. No liver lesion. Patent hepatic vasculature. Biliary: No intrahepatic or extrahepatic biliary ductal dilatation. Normal gallbladder. Pancreas: Normal. Spleen: Normal. Adrenal glands: Normal. Kidneys and ureters: Well-defined hypodensities, likely cysts though by density these are not simple. This may suggest hemorrhagic or proteinaceous cysts more likely than solid neoplasm. This is stable on the right but has increased in size on the left. Punctate nonobstructing calculus in the interpolar region of the left kidney. No hydronephrosis. Ureters are nondilated. Bladder: Incompletely evaluated secondary to underdistention. Pelvic organs: Prostate and seminal vesicles normal. Bowel: Wall thickening of the rectum extending proximally to the ileocolic anastomosis in the right mid abdomen. Postsurgical changes of ileocecectomy. Patent ileocolic anastomosis. No convincing evidence of wall thickening of the neoterminal ileum. Prominence of the vasa recta in the colon. No pericolonic or perienteric inflammatory change. Peritoneal cavity: No free fluid or intraperitoneal gas. Lymph nodes: No enlarged lymph nodes in the abdomen or pelvis. Vasculature: Aorta and IVC patent and normal in caliber. Abdominal wall: Postsurgical changes of the midline ventral abdominal wall. No evidence of a cutaneous fistula or fluid collection. Ischiorectal fossae normal. Musculoskeletal: Normal. IMPRESSION: 1. Diffuse colonic wall thickening. This is nonspecific and similar to prior exam. An acute on chronic component of inflammation is difficult to exclude though there is no pericolonic inflammatory change to suggest a moderate to severe degree of acute inflammation. No current evidence of acute or chronic inflammatory changes in the small bowel. No evidence of penetrating or fibrostenotic disease. 2. Postsurgical changes of ileocecectomy. 3. Nonobstructing punctate left renal calculus. 4. Hyperdense bilateral renal lesions, unchanged in size on the right but increased in size on the left. These may represent hemorrhagic or proteinaceous cysts. However, the increase in size of the left renal lesion is somewhat unexpected. Further evaluation with renal ultrasound recommended. The report will be called/faxed according to standard departmental protocol. Electronically signed by: Aaron Doherty M.D. 05/26/2018 11:28 AM Dictated Date/Time: 05/26/2018 11:18 AM
[2018-05-26] MEDS ORDERED: METHYLPREDNISOLONE 125 MG VIAL IV STA (12:19)
[2018-05-26] MEDS ORDERED: PRED50TA PO (12:21)
[2018-05-26 12:30] VITALS: BP 94/57; PULSE 54; O2SAT 98
== END 2018-05-26 12:59 | disposition home or self-care (01) ==
LOC: C.EDB 09:09
DX: K50.919 Crohn's disease, unspecified, with unspecified complications (principal); K92.0 Hematemesis; N28.89 Other specified disorders of kidney and ureter; Z90.49 Acquired absence of other specified parts of digestive tract; F17.200 Nicotine dependence, unspecified, uncomplicated; Z88.1 Allergy status to other antibiotic agents